=== PATIENT | male | born 1955 | race Caucasian/White ===

== ENCOUNTER 2017-08-01 08:46 | Inpatient (IN) | payer MEDICARE, MEDICAID ==
[2017-08-01] MEDS ORDERED: Haloperidol INJ IV/IM* 5 MG/ML AMP IV SLOW PU PRN (10:52)
[2017-08-01] MEDS ORDERED: Haloperidol INJ IV/IM* 5 MG/ML AMP ONE (11:02)
[2017-08-01] MEDS ORDERED: LORazepam INJ* 2 MG/ML 1 ML VIAL IV PUSH PRN (11:47)
[2017-08-01] MEDS ORDERED: LORazepam INJ* 2 MG/ML 1 ML VIAL ONE ×2 (11:54→15:18)
[2017-08-01] MEDS ORDERED: Vancomycin(*) 1,000 MG in NS 0.9% 250 ML* 250 ML IVPB ONE (12:00)
[2017-08-01] MEDS ORDERED: NS 0.9% 500 ML* 500 ML IV ONE (12:16)
[2017-08-01] MEDS ORDERED: Dextrose 50% Syringe 50 ML* 25 GM/50 ML SYRINGE IV PUSH PRN (12:28)
[2017-08-01 13:08] LABS: ABS Basophils 0 10^3/ul (0-0.2); ABS Eosinophils 0.1 10^3/ul (0-0.6); ABS Lymphocytes 0.4 10^3/ul (1.0-4.8); ABS Monocytes 0.8 10^3/ul (0-0.8); ABS Neutrophils 4.9 10^3/ul (1.5-7.7); ABS Nucleated RBC 0 10^3/ul; Eosinophil % 0.8 % (0-6); Hematocrit 28 % (42-52); Hemoglobin 9.3 g/dl (14.0-18.0); Lymphocyte % 6.2 % (25-47); Mean Corpuscular HGB Conc 34 g/dl (31-36); Mean Corpuscular Hemoglobin 29 pg (27-31); Mean Corpuscular Volume 85 fL (80-94); Mean Platelet Volume 8 um3 (7.4-10.4); Nucleated Red Blood Cells % 0; Platelet Count 100 10^3/ul (150-450); Red Blood Count 3.24 10^6/ul (4.0-5.4); Red Cell Distribution Width 16 % (10.5-15); White Blood Count 6.1 10^3/ul (3.5-10.8)
[2017-08-01 13:26] LABS: EGFR Non-African American 181.6 (>60)
[2017-08-01] MEDS ORDERED: Levofloxacin 750 MG IVPREMIX(* 750 MG/150 ML BAG IVPB SCH (13:30)
[2017-08-01] MEDS ORDERED: Olanzapine INJ(NF) 10 MG VIAL IM ONE (13:45)
[2017-08-01] MEDS ORDERED: Magnesium Sulfate 1 GM IV* 1 GM/100 ML BAG IV ONE (14:00)
[2017-08-01] MEDS: Heparin VIAL(*) 5000 UNITS/ML VIAL (FIVE THOUSAND) SUBCUT SCH (14:18)
[2017-08-01] MEDS: KCL 10 MEQ/50 ML IVPREMIX* 10 MEQ/50 ML BAG IV SCH ×2 (14:53→15:49)
--- NOTE | 2017-08-01 15:18 | RAD ---
HISTORY: Cough COMPARISONS: None VIEWS: 1: frontal portable view of the chest at 2:00 PM. The patient is obliqued to the right. FINDINGS: LINES AND TUBES: None. CARDIOMEDIASTINAL SILHOUETTE: There is mild widening of the upper mediastinum which may be an artifact of portable technique and obliquity. The cardiomediastinal silhouette is otherwise normal for portable technique. PLEURA: The costophrenic angles are sharp. No pleural abnormalities are noted. LUNG PARENCHYMA: The lung volumes are low. There is a diffuse reticular pattern with indistinct pulmonary vessels. ABDOMEN: The upper abdomen is clear. There is no subphrenic gas. BONES AND SOFT TISSUES: The patient is status post median sternotomy. IMPRESSION: PULMONARY INTERSTITIAL EDEMA
[2017-08-01] MEDS: LORazepam INJ* 2 MG/ML 1 ML VIAL IV PUSH PRN ×2 (15:20→18:06)
[2017-08-01] MEDS: Insulin LISPRO* 1 UNITS UNIT SUBCUT SCH (17:07)
--- NOTE | 2017-08-01 17:13 | HP ---
AMENDED REPORT NOW INCLUDES COSIGNER DESIGNATION - ESIGNED BEFORE ADJUSTMENT ADMISSION HISTORY AND PHYSICAL: DATE OF ADMISSION: 08/01/17 REFERRING FACILITY: [facility]. ATTENDING AND ADMITTING PHYSICIAN: Dr. Vinicius Wetzel.* (DICTATED BY FLETCHER STOVER, CINDY) CHIEF COMPLAINT: Altered mental status, possible sepsis, and right leg wound. HISTORY OF PRESENT ILLNESS: This is a gentleman who resides at the [facility]. Apparently, he was there in his usual state of health, convalescing from a right-sided stroke with some baseline right-sided weakness in his arm and leg. The patient had a sore that was being treated on the right foot. However, it was noted that over the course of the few days, he began exhibiting some symptoms of cellulitis in the foot spreading up to the mid calf. The patient was sent to the hospital for pain and the advancing likely infection and cellulitis. From what we can tell from the report, he was alert and oriented, but at baseline with dementia. Also, per the report, it appears that the patient does get combative at times and again this is his baseline. The patient was admitted to [place]. He was given x-rays and blood cultures and lactic acid were drawn. However, the patient began to decompensate and become very aggressive. Blood cultures and wound cultures from what we can see from the reports were growing out Pseudomonas aeruginosa, also Klebsiella pneumoniae and Enterococcus faecalis. Of significant note, the patient was being treated with Rocephin and per the ROSS report that was received from the other facility, all 3 bacteria were reported to be resistant to Rocephin. The patient began to become more combative at the other facility, also having some tachycardia. He was then called to be transferred to our ICU here for impending gram-positive sepsis, and right lower extremity cellulitis, and altered mental status. The patient is seen in the ICU bed 12. He is extremely combative. He has in bilateral upper extremity soft wrist restraints. He has been given 1 dose of haldol, 1 dose of Ativan, a dose of Zyprexa 5 mg, and is currently tachycardic on the monitor, yelling, kicking, screaming, and not responding to any questions or able to understand any of what is going on around him. Currently, we are trying to stabilize the patient's aggressive status. Plan is to do additional blood cultures, right now I have changed him to 1 g of vancomycin to start per the ROSS report that I found seems that all 3 bacteria are potentially susceptible to Levaquin, so we will start him on Levaquin 750 mg daily. Await new blood cultures and see if there is any change. We will adjust antibiotics based on any new culture results that we find. For now, we will check his response over the next 24 hours. If the patient continues to decompensate, we will also involve Infectious Disease and see if we can further elucidate what the issues are with his sepsis versus altered mental status. Also, hard to discover right now whether the patient's altered status is just advancing dementia or if this does have something to do with infection. I would like to get a CAT scan of his head when he is calm enough to be able to go through that. Also, a 12-lead EKG to assess his rhythm, he is currently tachycardic and it seems to be regular, but difficult to tell whether this is a sinus tach or some other underlying rhythm. Would like to also get a chest x-ray, he does appear to have some congestion, and also routine lab work and start him on insulin sliding scale. Med rec is soon to be completed by the pharmacist to initiate his regularly scheduled medications after we clarify routine medications he is supposed to be on. REVIEW OF SYSTEMS: Unable to obtain based on current status. PHYSICAL EXAMINATION GENERAL: Agitated and combative. VITAL SIGNS: Currently heart rate 126, rhythm unknown; respiratory rate 22; O2 saturation 96%; blood pressure 157/119, although the patient is pulling at the blood pressure cuff, I doubt the diastolic is actually a true reading at this point. HEENT: The patient appears to be PERRLA with nonicteric sclerae. NECK: Supple. No JVD apparent. Cannot auscultate a carotid bruit. The patient is moving too much to assess. LUNGS: Appeared to be clear at the apices, I am not able to listen at the bases , because the patient is on restraints at this time and too combative for me to listen to his lungs, he does have a course, loose cough. CARDIOVASCULAR: S1, S2 are present. Tachycardic on the monitor, again difficult to hear if there is a murmur at this time because the patient is yelling so much, so we will reassess again later. ABDOMEN: Belly is soft, does not appear to be tender. : He has a Edmonds catheter, draining clear yellow urine. MUSCULOSKELETAL: Appears to have gross motor function intact on the left side, right side is weaker but he is still able to move his extremities on that side enough to pull at his lines and tele. Sensory also appears to be intact. He is very sensitive to any touch or tactile stimulation. He has weak pulses on the bilateral lower extremities. The right lower extremity has some diffuse erythema approximately half way up the anterior portion of the mg and partly up to the calf. The wound itself is in the lateral portion at the midfoot over the slightly bony prominence, appears to be about 2 cm, round. No exudate noted , some eschar in the middle, does not appear to be deep. I cannot get measurement on the depths of the wound, but does appear to look like a pressure ulcer given the bony nature of that side of the foot, also this is on his weaker side. It appears that the foot is probably in the bed kind of outwardly rotated on the right side, which would contribute to him getting a pressure wound on that side. Also, both bony prominences of elbows are very reddened. Per the nurse also has what appears to be a sacral wound. There is a Mepilex over the sacrum, although we were not able to visualize that. PSYCHIATRIC: Again, the patient is very agitated and has dementia at baseline. DIAGNOSTIC STUDIES/LAB DATA: Laboratories from the receiving facility dated , WBC 9.81, RBC 3.46, hemoglobin 9.6, hematocrit 29.8, MCV 86.1, MCH 27.7 , RDW 16.1, platelets 130, does not appear to be any bandemia. Dated 08/01/17, sodium is 142, potassium 4.7, chloride 108, CO2 20, anion gap of 18.7, BUN 8, creatinine 0.6, GFR 146, random glucose is 129, calcium 8.5, ammonia level apparently was drawn but was pending. We do not have that result. Urinalysis dated 07/28/17 showed yellow, clear urine, pH of 6.0, specific gravity of 1.019 , protein negative, 3+ glucose, negative for ketones, blood, nitrites, or bilirubin, urine leukocyte esterase is negative. Imaging: There are few views of the right ankle that is dated 07/28/17. There is right ankle soft tissue swelling with no definite evidence of acute osteomyelitis. Also, states there is no cortical irregularity, erosion, or abnormal lucency seen to suggest the presence of osteomyelitis. There is no radiographic evidence of acute fracture or dislocation. No focal blastic or lytic areas are seen. There is swelling of the soft tissues around the right ankle. IMPRESSION: This is the very unfortunate 62-year-old gentleman with history of stroke in the past and right-sided deficit, who appears to be currently experiencing some increased altered mental status, fever and sepsis secondary to right lower extremity cellulitis nonhealing foot wound. PLAN: As above, he has been admitted to the ICU. My plan is to stabilize him here in the ICU, get a gauge on what his issues are after further imaging and if we can stabilize him to downgrade to one of the floors. I would like to get further imaging of the foot, perhaps if we can do bone scan or MRI of the foot to assess for osteomyelitis. He did come in with a temperature of 100.4, so blood cultures will be redrawn and start with vancomycin x 1 dose and Levaquin 750mg daily for now. We will recheck his labs and lactic acid in the morning. REEVALUATION @1830 Patient has required escalating doses of zyprexa and ativan with little effect. EKG shows sinus tachycardia for no acute ST segment changes. Discussed with pharmacy, will start ativan drip and reassess response. Would still like to get CT of head to ensure no new pathology is present. Portable chest xray shows pulmonary congestion and sternotomy wires, he likely has underlying CAD, and likely some acute failure. Will check BNP. Will continue soft wrist restraints for now. Per RN at bedside, they reached out to patient's son and they are apparently estranged. This plan has been discussed with Dr. Vinicius Wetzel, who is in agreement with the POC. FLETCHER STOVER, CINDY [id number]/[facility] #: [id number] [facility]
[2017-08-01] MEDS ORDERED: LORazepam VIAL (for drip)* 100 MG in D5W 50 ML BAG* 50 ML IVPB SCH (18:00)
[2017-08-01] MEDS ORDERED: LORazepam PREMIX BAG 1MG/ML* 100 MG/100 ML BAG SCH (18:00)
[2017-08-01] MEDS ORDERED: LORazepam INJ* 2 MG/ML 1 ML VIAL IV PUSH ONE (18:06)
[2017-08-01] MEDS ORDERED: Furosemide IV* 10 MG/ML VIAL (40 MG) IV ONE (21:21)
[2017-08-01] MEDS ORDERED: Furosemide IV* 10 MG/ML VIAL (40 MG) ONE (21:55)
[2017-08-01] MEDS ORDERED: Morphine INJ* 2 MG/ML 1 ML CARPUJECT ONE (21:56)
[2017-08-01] MEDS: Morphine INJ* 2 MG/ML 1 ML CARPUJECT IV PRN (21:57)
[2017-08-02] MEDS: Heparin VIAL(*) 5000 UNITS/ML VIAL (FIVE THOUSAND) SUBCUT SCH ×2 (00:20→05:21)
[2017-08-02] MEDS: LORazepam INJ* 2 MG/ML 1 ML VIAL IV PUSH PRN ×3 (00:22→10:42)
[2017-08-02] MEDS: Morphine INJ* 2 MG/ML 1 ML CARPUJECT IV PRN ×3 (01:24→09:44)
[2017-08-02 06:17] LABS: ABS Basophils 0 10^3/ul (0-0.2); ABS Eosinophils 0.1 10^3/ul (0-0.6); ABS Lymphocytes 0.6 10^3/ul (1.0-4.8); ABS Monocytes 1.1 10^3/ul (0-0.8); ABS Neutrophils 4.9 10^3/ul (1.5-7.7); ABS Nucleated RBC 0 10^3/ul; Eosinophil % 2.2 % (0-6); Hematocrit 28 % (42-52); Hemoglobin 9.7 g/dl (14.0-18.0); Lymphocyte % 9.1 % (25-47); Mean Corpuscular HGB Conc 35 g/dl (31-36); Mean Corpuscular Hemoglobin 29 pg (27-31); Mean Corpuscular Volume 83 fL (80-94); Mean Platelet Volume 8 um3 (7.4-10.4); Nucleated Red Blood Cells % 0; Platelet Count 101 10^3/ul (150-450); Red Blood Count 3.39 10^6/ul (4.0-5.4); Red Cell Distribution Width 16 % (10.5-15); White Blood Count 6.7 10^3/ul (3.5-10.8)
[2017-08-02 06:30] LABS: EGFR Non-African American 181.6 (>60)
--- NOTE | 2017-08-02 08:23 | PN ---
Subjective Date of Service: 08/02/17 Interval History: Patient not able to make his needs known. Objective Active Medications: Dextrose (D50w Syringe 50 Ml*) 12.5 gm IV PUSH .FOR FS < 60 - SS PRN PRN Reason: FS < 60 Furosemide (Lasix Iv*) 20 mg IV DAILY ONE Stop: 08/02/17 09:01 Levofloxacin/Dextrose (Levaquin 750 Mg Ivpremix(*)) 750 mg in 150 mls @ 100 mls /hr IVPB Q24H KULDEEP Last Admin: 08/01/17 14:53 Dose: 100 mls/hr Lorazepam 100 mg/ Dextrose 100 mls @ 2 mls/hr IVPB Q24H KULDEEP; 2 MG/HR PRN Reason: Protocol Insulin Human Lispro (Humalog*) 0 units SUBCUT AC KULDEEP PRN Reason: Protocol Last Admin: 08/01/17 17:07 Dose: 1 unit Lorazepam (Ativan Inj*) 2 mg IV PUSH Q4H PRN PRN Reason: AGITATION Last Admin: 08/02/17 05:21 Dose: 2 mg Morphine Sulfate (Morphine Inj (Syringe)*) 2 mg IV Q4H PRN PRN Reason: PAIN - UNRELIEVED Last Admin: 08/02/17 05:21 Dose: 2 mg Olanzapine (Zyprexa Im (Nf)) 5 mg IM Q4HR PRN; Protocol PRN Reason: AGITATION Last Admin: 08/01/17 20:37 Dose: 5 mg Vital Signs - 8 hr 08/02/17 08/02/17 08/02/17 00:22 01:00 01:24 Temperature Pulse Rate 97 Respiratory 28 18 25 Rate Blood Pressure 121/73 (mmHg) O2 Sat by Pulse 100 Oximetry 08/02/17 08/02/17 08/02/17 02:00 03:00 04:00 Temperature 98.0 F Pulse Rate 102 93 99 Respiratory 22 17 18 Rate Blood Pressure 133/93 134/81 123/74 (mmHg) O2 Sat by Pulse 99 98 99 Oximetry 08/02/17 08/02/17 08/02/17 05:00 05:21 06:00 Temperature Pulse Rate 100 97 Respiratory 22 19 18 Rate Blood Pressure 131/78 140/87 (mmHg) O2 Sat by Pulse 96 100 Oximetry 08/02/17 08/02/17 07:00 07:01 Temperature Pulse Rate 87 84 Respiratory 16 15 Rate Blood Pressure 96/62 (mmHg) O2 Sat by Pulse 100 100 Oximetry Oxygen Devices in Use Now: Nasal Cannula Appearance: Eyes closed. Occ flexes his extremities. Semi- position. Eyes: No Scleral Icterus Neck: NL Appearance and Movements; NL JVP, No Thyroid Enlargement, Masses Respiratory: Symmetrical Chest Expansion and Respiratory Effort, Clear to Auscultation, Clear to Percussion Cardiovascular: NL Sounds; No Murmurs; No JVD, RRR, No Edema, - Extremities: No Edema, No Clubbing, Cyanosis, - Skin: No Nodules or Sclerosis, - - Callus R lateral foot. R Heel red, possible incipient breakdown of heel. L heel red, 1x1 cm shallow ulcer. R lower leg mildly red from ankle detention to knee Neurological: - - Unresponsive to voice or light touch. Increased tone all extremities. Result Diagrams: 08/02/17 06:00 08/02/17 06:00 Microbiology and Other Data: Microbiology 08/01/17 12:56 Nasal Screen MRSA (PCR)(ROSS) - Final Nasal Mrsa Not Detected Assess/Plan/Problems-Billing Assessment: - Patient Problems (1) Altered mental status Current Visit: Yes Status: Acute Code(s): R41.82 - ALTERED MENTAL STATUS, UNSPECIFIED SNOMED Code(s): 729725524 Comment: CT scan, EEG pending. Continue lorazepam infusion. Maintenance IV fluids with KCL. (2) Hypokalemia Current Visit: Yes Status: Acute Code(s): E87.6 - HYPOKALEMIA SNOMED Code( s): 07249069 Comment: Maintenance IV fluids with KCL. BMP 2. (3) Cellulitis Current Visit: Yes Status: Acute Code(s): L03.90 - CELLULITIS, UNSPECIFIED SNOMED Code(s): 010686515 Comment: Ceftriaxone ordered. Received 1 dose levofloxacin. (4) CVA (cerebral vascular accident) Current Visit: Yes Status: Acute Code(s): I63.9 - CEREBRAL INFARCTION, UNSPECIFIED SNOMED Code(s): 519324916 Comment: Old CVA with R hemiparesis. I spoke to his nurse at the [facility]. He was ambulatory and oriented as of 1 week ago, up to his admission to [facility] 07/21/17.
[2017-08-02] MEDS: Insulin LISPRO* 1 UNITS UNIT SUBCUT SCH ×3 (08:31→23:58)
[2017-08-02] MEDS ORDERED: cefTRIAXone(*) 1 GM in NS 0.9% 50 ML* 50 ML IVPB SCH (09:00)
[2017-08-02] MEDS ORDERED: D5W 1/2 NS KCl 20 Meq 1000 ML* 1,000 ML IV SCH (09:00)
[2017-08-02] MEDS ORDERED: Furosemide IV* 10 MG/ML 2 ML VIAL (20 MG) IV ONE (09:00)
[2017-08-02] MEDS ORDERED: fentaNYL* 50 MCG/ML 2 ML VIAL (100 MCG VIAL) IV SLOW PU ONE ×2 (11:28→12:30)
[2017-08-02] MEDS ORDERED: fentaNYL* 50 MCG/ML 2 ML VIAL (100 MCG VIAL) ONE (11:43)
[2017-08-02] MEDS ORDERED: Ziprasidone IM INJ* 20 MG/ML VIAL IM ONE (11:51)
[2017-08-02] MEDS ORDERED: Ziprasidone IM INJ* 20 MG/ML VIAL ONE (11:55)
[2017-08-02] MEDS ORDERED: Zosyn per Pharmacy* NOTE FOLLOW UP SCH (12:00)
[2017-08-02] MEDS ORDERED: NS 0.9% 1000 ML* 1,000 ML IV SCH (12:30)
[2017-08-02] MEDS ORDERED: Piperacillin/Tazobac ADVAN(*) 3.375 GM in NS 0.9% 100 ML* 100 ML IVPB ONE (12:30)
--- NOTE | 2017-08-02 12:36 | RAD ---
Indication: Confusion. CT of the brain was performed without IV contrast. No prior studies are available for comparison Ventricular structures are midline. No midline shift is noted. The extra-axial spaces are grossly unremarkable. Hypodensity in the left frontal lobe likely represents prior infarct. Motion artifact degrades images. Mastoid air cells are grossly unremarkable. Mucosal thickening and air-fluid level is noted in the sphenoid sinus. Mucosal thickening of the left maxillary sinus is noted. IMPRESSION: Probable old left frontal lobe infarct. No definite intracranial mass or hemorrhage is noted. Sphenoid sinusitis.
--- NOTE | 2017-08-02 12:52 | CONSULT ---
Consult Consult: CRITICAL CARE MEDICINE DATE: 08/02/17 TIME: 1200 REFERRING PROVIDER: Rashard REASON/CHIEF COMPLAINT: encephalopathy HISTORY OF PRESENT ILLNESS: 62 yo M sent yesetrday from [place] secondary to encephalopathy and concern for cellulitis and sepsis +/- osteo of R foot. Pt treated with abx and ultimately mobilizing fluid but remaining combative at times, not communicating, although flailing about at times and moaning. Per nursing astute investigative work, pt was know to take care of self and own affairs at his living facility and had become more altered this week. Concerns started for leg pain and decreased communication. sent to [facility] [place] REVIEW OF SYSTEMS: As per HPI. PAST MEDICAL HISTORY: As per HPI. Pt with known prior CVA with residual R hemiparesis - unclear if any residual aphasia. Vascolopath per records. Uncontrolled DM. Gerd. dementia MEDICATIONS: Reviewed per transfer records. ALLERGIES: None. SOCIAL HISTORY: Reviewed but unclear. no next of kin known FAMILY HISTORY: Noncontributory at present. PHYSICAL EXAM: Vital Signs: Reviewed. Hr tachy. bp stable. RR variable and signs of ez. Neurologic: moves to pain and localize with left arm; more contracted and hemiparesis on right. Pupils eq and reactive. not tracking. not following commands. +gag, cough. HEENT: poor dentition, mm dry. Cardiovascular: distant, tachy, S1, S2 Respiratory: dec bs with barrel chest and mild RUL rhonchi; no wheeze. Abdomen: obese, soft, nt Extremities: chronic changes; mild cellulitic changes right leg with skin breakdown. Access: piv LABS: Reviewed. IMAGING: Reviewed. Previous MRI last year r/o osteo. CXR with dec volumes and mild interstial vol. CT head pending MEDICATIONS: Reviewed. ASSESSMENT/PLAN: 62 M Encephalopathy: multifactorial - metabolic, ?septic, check hepatic - ammonia ( on rifaximin previously?); CT pending. doubt seizure but eeg already done. ? delirium vs dementia components, especially with pain exacerbation - tx pain. Concern for benzos and delirium high with him and try to dec use - trial precedex for delirium Tx for cellulitis - nontoxic if infection present. polymicrobial wound swab and contaminant bc; can adjust to zosyn until better sorted to not miss on the cultured microbes. 3 phase bone scan perhaps later or mri as needed. afeb. wbc benign. Time and close ICU observation Will follow along Supportive and preventative care as ordered. Disposition: ICU Code Status: Full Critical Care Time: 40min Meri Paez DO
[2017-08-02] MEDS ORDERED: Potassium Phosphate IV* 30 MMOLE in NS 0.9% 250 ML* 250 ML IVPB ONE (13:00)
[2017-08-02] MEDS ORDERED: Magnesium Sulf 4 GM/100 ML IV* 4,000 MG/100 ML BAG IVPB ONE (13:00)
[2017-08-02] MEDS: Dexmedetomidine* 200 MCG in NS 0.9% 50 ML* 48 ML IVPB SCH ×3 (13:17→23:58)
[2017-08-02] MEDS: Albuterol/Ipratropium NEB.SOL* Albuterol 2.5 MG/Ipratropium 0.5 MG 3 ML INH SCH ×2 (17:12→20:34)
[2017-08-02] MEDS ORDERED: LORazepam VIAL (for drip)* 100 MG in D5W 50 ML BAG* 50 ML IVPB SCH (18:00)
[2017-08-02] MEDS: Piperacillin/Tazobactam 13.5 GM IV 24 hour continuous infusion IVPB SCH ×2 (18:26)
[2017-08-02] MEDS: fentaNYL* 50 MCG/ML 2 ML VIAL (100 MCG VIAL) IV SLOW PU PRN (21:55)
[2017-08-02] MEDS: Ziprasidone IM INJ* 20 MG/ML VIAL IM PRN (23:35)
--- NOTE | 2017-08-02 23:47 | EEG ---
ELECTROENCEPHALOGRAPHY: DATE OF STUDY: 08/02/17 - ROOM #ICU-05 LOCATION: The patient is an inpatient. ORDERING PHYSICIAN: Dr. Wetzel. CLINICAL PROBLEM: This is a 62-year-old man, who came to the ICU from [facility] for treatment of gram-positive sepsis. He has a history of dementia, but at his baseline, was ambulatory and mostly independent at his assisted living facility. He also has a past history of left-sided stroke with right- sided weakness. He is reportedly on lorazepam and morphine drips. MEDICATIONS: 1. Levofloxacin. 2. Heparin. 3. Olanzapine. 4. Lorazepam. 5. Morphine. 6. Furosemide. 7. Ceftriaxone. 8. Humalog. According to the technologist, the patient last received lorazepam at 5:21 in the morning. REPORT: The background lacks the organization expected of the typical waking or sleep background. There were no evident anterior to posterior voltage nor frequency gradients. There was no posterior dominant rhythm. The background consisted of mixed frequency, low to moderate voltage, polymorphic slowing in the theta and delta ranges. There was superimposed spindle like activity primarily in the frontocentral regions, consistent with medication effect and a sedated pattern. There were no clear focal asymmetries. The patient moved frequently during the study and there was some increase in faster frequency activity evident during these times of arousal. Throughout the recording, there are no epileptiform discharges or clear interhemispheric asymmetries. CLINICAL IMPRESSION: This is an abnormal EEG due to the presence of diffuse background slowing, lack of organization and no evident posterior dominant rhythm with superimposed spindle like activity in the frontocentral regions. These findings are suggestive of a moderate, nonspecific, diffuse encephalopathy. This encephalopathy is likely in part secondary to medications including benzodiazepines recently administered. There are no epileptiform abnormalities or clear focal asymmetries. [id number]/[facility] #: [id number] [facility]
[2017-08-03] MEDS: LORazepam INJ* 2 MG/ML 1 ML VIAL IV PUSH PRN (01:11)
[2017-08-03] MEDS: Albuterol/Ipratropium NEB.SOL* Albuterol 2.5 MG/Ipratropium 0.5 MG 3 ML INH SCH ×4 (01:19→19:38)
[2017-08-03] MEDS: fentaNYL* 50 MCG/ML 2 ML VIAL (100 MCG VIAL) IV SLOW PU PRN ×3 (02:38→16:07)
[2017-08-03] MEDS: Dexmedetomidine* 200 MCG in NS 0.9% 50 ML* 48 ML IVPB SCH ×3 (04:23→14:43)
[2017-08-03] MEDS: Insulin LISPRO* 1 UNITS UNIT SUBCUT SCH ×5 (05:14→23:48)
[2017-08-03 05:16] LABS: ABS Basophils 0 10^3/ul (0-0.2); ABS Eosinophils 0.2 10^3/ul (0-0.6); ABS Lymphocytes 0.5 10^3/ul (1.0-4.8); ABS Monocytes 0.6 10^3/ul (0-0.8); ABS Neutrophils 4.5 10^3/ul (1.5-7.7); ABS Nucleated RBC 0 10^3/ul; Hematocrit 30 % (42-52); Hemoglobin 10.5 g/dl (14.0-18.0); Lymphocyte % 9.1 % (25-47); Mean Corpuscular HGB Conc 35 g/dl (31-36); Mean Corpuscular Hemoglobin 29 pg (27-31); Mean Corpuscular Volume 84 fL (80-94); Mean Platelet Volume 8 um3 (7.4-10.4); Nucleated Red Blood Cells % 0.1; Platelet Count 102 10^3/ul (150-450); Red Blood Count 3.58 10^6/ul (4.0-5.4); Red Cell Distribution Width 17 % (10.5-15); White Blood Count 5.9 10^3/ul (3.5-10.8)
[2017-08-03 05:27] LABS: EGFR Non-African American 145.3 (>60)
[2017-08-03] MEDS ORDERED: fentaNYL* 50 MCG/ML 2 ML VIAL (100 MCG VIAL) ONE (11:02)
[2017-08-03] MEDS ORDERED: Propofol* 10 MG/ML 20 ML BTL IV PUSH ONE ×2 (11:03→11:22)
[2017-08-03] MEDS ORDERED: Propofol* 100 ML ONE (11:03)
[2017-08-03] MEDS ORDERED: fentaNYL* 50 MCG/ML 2 ML VIAL (100 MCG VIAL) IV SLOW PU ONE ×2 (11:21→16:45)
[2017-08-03] MEDS ORDERED: fentaNYL* 50 MCG/ML 5 ML VIAL (250 MCG VIAL) ONE (11:25)
--- NOTE | 2017-08-03 11:38 | PN ---
Progress Note - Progress Note Date of Service: 08/03/17 Note: CRITICAL CARE MEDICINE PROCEDURE NOTE DATE: 08/03/2017 TIME: 1130 SERVICE: Critical Care Medicine LOCATION OF PROCEDURE: ICU PROCEDURE: Endotracheal intubation PROCEDURALIST: Dr. Paez Consent obtain: No, procedure performed emergently Time out held: Not indicated INDICATION: Acute respiratory failure due to airway compromise secondary to ongoing encephalopathy. PROCEDURE: Oxygenation maintained and vitals monitored. Patient in supine position. Pre-medication with fentanyl 200mcg / propofol 100mg. Glidescope #3 inserted with Grade 1 view obtained. 8.0 endotracheal tube inserted to 24cm lip. Good chest rise with breath sounds appreciated in bilaterally lung lomeli. EtCO2 + color change. OGTY inserted to 55cm. Portable chest x-ray pending. Patient otherwise tolerated well. Meri Paez DO
--- NOTE | 2017-08-03 11:55 | PN ---
Progress Note - Progress Note Date of Service: 08/03/17 Note: CRITICAL CARE MEDICINE DATE: 08/03/17 TIME: 1100 SUBJECTIVE: Patient seen and examined. PHYSICAL EXAM: Vital Signs: Reviewed. Hr better. bp stable. RR variable and signs of ez. Neurologic: moves to pain and localize with left arm; more contracted and hemiparesis on right. Pupils eq and reactive, looking with downward gaze this am. not tracking. not following commands. moans. moves spont. +gag, cough. otherwise relatively unchanged from yesterday. HEENT: poor dentition, mm dry. Cardiovascular: distant, S1, S2; no m appreciated Respiratory: dec bs with barrel chest and mild RUL rhonchi and still with upper airway secretions Abdomen: obese, soft, nt Extremities: chronic changes; mild cellulitic changes right leg with skin breakdown same. Access: piv LABS: Reviewed. IMAGING: Reviewed. Previous MRI last year r/o osteo. CXR with dec volumes and mild interstial vol. CT head pending MEDICATIONS: Reviewed. ASSESSMENT: 62 M Encephalopathy: multifactorial - metabolic, ?septic, mild hepatic ?delirium vs dementia components but not correcting with time and precedex Cellulitis PLAN: Neurologic: not improving and apparently functional at baseline. encephalopathy ddx still concerning. Although afeb, benign wbc since admission, condition warrants LP today. Given his dyanmics best to secure airway; obtain LP and obtain MRI as well. Cardiovascular: perfusing and vol status ok, but given his h/o, cabg and concerns eval with tte today. Respiratory: airway is becoming concerning without improved mentation and therefore intubation today. Gastrointestinal: place ogt. start tf. start lactulose. Renal/Metabolic: lytes ok and f/u repletes. Infectious Disease: on zosyn to cover polymicrobes. CRP not too exciting and procalcitonin negative. LP today and f/u abx needs Hematology: Hb, plt seem to be towards his baseline. Endocrine: ssi. f/u bg needs. no steroid indications. Musculoskeletal: legs wrapped. avoid skin breakdown and deconditioning Psych/Social: no proxy and pt without capacity at present Supportive and preventative care as ordered. SUP: ppi VTE prophylaxis: heparin Edmonds catheter given critical illness, monitoring needs for accurate assessment of JHON and KDIGO criteria for critically ill patients and to avoid potential harms of urinary retention, skin breakdown/ulcers. Restraints: Reviewed and required. Disposition: ICU Code Status: Full Critical Care Time: 35min, excluding procedures Meri Paez DO
[2017-08-03] MEDS ORDERED: Magnesium Sulfate 2 GM IV* 2 GM/50 ML BAG IVPB ONE (12:03)
[2017-08-03] MEDS: Chlorhexidine MOUTHWASH 0.12%* 15 ML UDC TOPICAL SCH ×4 (13:11→23:48)
--- NOTE | 2017-08-03 13:17 | RAD ---
INDICATION: Status post intubation orogastric tube placement. COMPARISON: Comparison is made with prior chest x-ray study from August 01, 2017. TECHNIQUE: A portable view of the chest was obtained. FINDINGS: The patient is status post intubation. There is a orogastric tube which demonstrates normal course. The distal catheter projects over the left upper quadrant. The patient is status post sternotomy. The heart is within normal limits in size. There is elevation of the right hemidiaphragm and small bibasilar infiltrates. IMPRESSION: 1. STATUS POST INTUBATION AND OROGASTRIC TUBE PLACEMENT. 2. SMALL BIBASILAR INFILTRATES.
[2017-08-03] MEDS ORDERED: NS 0.9% 1000 ML* 1,000 ML IV ONE (13:33)
--- NOTE | 2017-08-03 14:31 | PN ---
Progress Note - Progress Note Date of Service: 08/03/17 Note: CRITICAL CARE MEDICINE PROCEDURE NOTE DATE OF PROCEDURE: 08/03/17 1330 SERVICE: Critical Care Medicine LOCATION OF PROCEDURE: ICU PROCEDURE: Lumbar Puncture PROCEDURALIST: Dr. Paez Consent obtain: No, procedure performed urgently and no consentable kin. Time out held: Yes INDICATION: Encephalopathy PROCEDURE: Oxygenation maintained and vitals monitored. Patient in right lateral decubitus position Site and side marked with initials and date. Pre-medication with sedation on vent not for procedure. Chlorhexidine prep x 3 at site and sterile drape, gown, and gloves utilized. Total 5ml 1% lidocaine utilized locally at L3-4 spianl interspace. Required 2 puncture sites with manipulation past bone. Clear tap from there with low flow. 4 tubes filled slowly with about 2-3ml each. Fluid clear throughout. Site covered with band aid. Specimens were sent to lab. Patient otherwise tolerated well. Meri Paez DO
[2017-08-03] MEDS: Ziprasidone IM INJ* 20 MG/ML VIAL IM PRN (15:09)
--- NOTE | 2017-08-03 15:32 | CONS ---
NEUROLOGY CONSULTATION: DATE OF CONSULT: 08/03/17 LOCATION: He is in the ICU bed 5. REFERRING PHYSICIAN: Dr. Paez. CHIEF COMPLAINT: Delirium. HISTORY OF PRESENT ILLNESS: Shawn Petit is a 62-year-old male transferred from [facility] on 08/01/17 because of agitated delirium. According to admission records, he had cellulitis of his foot, which was coming up his leg and he was admitted for pain and apparently advancing infection. He apparently had blood cultures, which were negative and wound cultures, which grew out multiple organisms including pseudomonas, klebsiella, and enterococcus. He was treated with Rocephin initially, but MICs came back indicating all the agents were resistant to Rocephin. He became more combative and delirious and tachycardic and it was elected to transfer him to our intensive care unit. Upon arrival, he was in agitated delirium and described as extremely combative. In addition, being tachycardic, he was described as yelling, kicking, and screaming. He was given vancomycin based on ROSS reports of sensitivities, haloperidol, lorazepam, and ultimately transitioned to Precedex infusion. His agitation has been controlled on the current regimen of Precedex. He has also been getting p.r.n. ziprasidone 10 mg t.i.d. p.r.n. and lorazepam 2 mg q.4 hours p.r.n. agitation. PAST MEDICAL HISTORY: Notable for left hemispheric stroke. Etiology and timing of that history was not known as I do not have any old records available. His ICU nurse called and spoke with the folks at his assisted living and confirmed that he is able to take care of his activity of daily living, walks, and he is usually cooperative other than sometimes yelling out. He apparently was able to handle financial affairs with assistance. Transfer records indicated a pre-existing diagnosis of dementia, but the verbal history obtained by his nurse brings that into question. He is apparently diabetic based on his laboratory studies done here. Transfer records indicated also diagnosis of gastroesophageal reflux. MEDICATIONS: List of home medications, which I do not have independent verification of includes: 1. Januvia. 2. Rifaximin. 3. Insulin. 4. Oxybutynin. 5. Meloxicam. 6. Loperamide. 7. Dexilant. 8. Isosorbide. 9. Plavix. 10. Lisinopril. 11. Atorvastatin. His current medications consist of: 1. Dexmedetomidine infusion. 2. Fentanyl 50 mcg IV q.4 hours p.r.n. pain. 3. Sliding scale insulin. 4. Lorazepam 2 mg IV q.2 hours p.r.n. agitation. 5. Zosyn. 6. Geodon 10 mg IM t.i.d. p.r.n. agitation. ROS: unobtainable from the patient and records are meager PHYSICAL EXAM: He has been afebrile with most recent temperature 97.6, temporal scan; heart rate running in the 80s; blood pressure 130/70 most recently. Respiratory rate fluctuates at times having very brief periods of apnea and other times respiratory is in the mid to low 20s. Oxygen saturations in excess of 95% on supplemental oxygen. His mouth is dry. Skin is warm. He has bandages on both of his feet and ankles. There are some excoriations on his forelegs. Heart is in regular rhythm and I do not hear any murmurs. I do not hear any cervical bruits either. Neck is stiff. There is no Kernig or Brudzinski sign. Neurologically, pupils react from about 3 to 2 mm. Fundi are poorly seen, but I did get brief look at his discs and parts of the retina, I did not see any hemorrhages or edema. Facial muscular looks symmetric. Corneal reflexes are brisker on the left than the right. Nasal tickle response is weak but present on the left but not the right. He moans periodically. He has contractures of the right upper extremity and the right ankle. There is spasticity in the right arm and leg. He moves the left arm purposely reaching up to his mouth and face. He restlessly moves the left leg. He has a left Babinski sign. Reflexes are brisk on the left side. There is no myoclonus noted. He does not respond to voice or speak other than to moan. 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 There is movement artifact. Chest x-ray was read as pulmonary edema. Other laboratory data includes a CBC notable for a hemoglobin of 10.5 and platelet count of 102,000, and is otherwise unremarkable. He has not had elevated white blood cells or left shift during the labs that he had here at the hospital. Chemistries are notable for a normal BUN and creatinine and normal electrolytes. Glucose is elevated at 155 and hemoglobin A1c is 8%. Lactic acid when he came in was normal at 1.2. Calcium is a bit low at 7.9, but albumin is 2.4, phosphorus low at 1.4, and magnesium low at 1.4 as well. AST is borderline elevated at 43, it was 62 yesterday. ALT has been normal. Ammonia was elevated on 07/31/17 at 60 and is down to 50 on 08/02/17. Back in April of 2017, ammonia was 68. BNP is elevated at 1942 and creatine kinase elevated at 430. CRP elevated at 54.8. IMPRESSION AND PLAN: Impression is that of agitated delirium of unknown cause. Differential diagnosis includes metabolic encephalopathy secondary to sepsis, meningitis, endocarditis. He had mild hyperammonemia when he came in and was on rifaximin at home indicating this is a chronic problem. There are signs of congestive heart failure on chest x- ray and by BNP. Medications that he has received that I am aware of would not be expected to cause an agitated delirium. There is no known toxin exposures. I recommend getting a urine tox screen, a pro time in anticipation of doing a lumbar puncture, and an echocardiogram to look for evidence of endocarditis. He may need an MRI at some point to look for cerebral abscess or for etiologies not determined. He has been covered with antibiotics for organisms which have been identified based on sensitivities. Also, he has hyperammonemia of unknown etiology, which apparently goes back a year or so. He was on rifaximin apparently at home, so this appears to be a chronic issue. Currently, his ammonia is at a good level and so I think we need to just continue to follow that. I will follow him along with you. [id number]/[facility] #: [id number] [facility]ERY[facility]
[2017-08-03 16:13] LABS: INR 1.34 (0.77-1.02)
--- NOTE | 2017-08-03 16:54 | ECHO ---
Patient: FELICIANO REYES [facility] Rec#: [id number] : 1955 Date: 08/03/2017 Age: 62y Height: 162.6 cm / 64.0 in Weight: 74.8 kg / 164.9 lbs Sex: M BSA: 1.8 Room#: ICU 5 Admit Date#: 08/01/2017 Type: Inpatient Referring: Gerald Paez Reading: Debby Clarke MD Sawyer Cork Slabs: Yuni Zeng RN RDCS CC: Bryan Freedman MD Transthoracic Echocardiogram Indication: CAD, CABG, altered mental status BP: 93/57 HR: 68 Rhythm: NSR Findings History: CAD, CABG, CVA with right hemiparesis, DM, HTN, GERD Technical Comments: The study quality is fair. The study is technically limited due to patient being intubated and on a ventilator.Completed at 1550. Left Ventricle: The left ventricular chamber size is normal. Mild to moderate concentric left ventricular hypertrophy is observed. There is increased basal septal hypertrophy noted without evidence of an increased gradient across the left ventricular outflow tract. Global left ventricular wall motion and contractility are within normal limits. Left ventricular systolic function is at the lower limits of normal. The estimated ejection fraction is 50-55%. Post surgical hypokinesis of the interventricular septum is observed consistent with coronary artery bypass. The assessment of diastolic function is non-diagnostic. The patient was unable to perform a Valsalva maneuver. Left Atrium: The left atrium is slightly dilated. Right Ventricle: The right ventricular cavity size is normal. The right ventricular global systolic function is low normal. Right Atrium: The right atrial cavity size is normal. Aortic Valve: The aortic valve is trileaflet. The aortic valve leaflets are mildly thickened. There is no evidence of aortic regurgitation. There is no evidence of aortic stenosis. Mitral Valve: The mitral valve leaflets are mildly thickened. There is mild mitral regurgitation. There is no evidence of mitral stenosis. Tricuspid Valve: There is mild tricuspid regurgitation. No pulmonary hypertension is noted. There is no tricuspid stenosis. Pulmonic Valve: The pulmonic valve appears normal. There is a trace pulmonic regurgitation. There is no pulmonic stenosis. Pericardium: There is no significant pericardial effusion. A pericardial fat pad is visualized. Aorta: There is no dilatation of the ascending aorta. There is no dilatation of the aortic arch. There is no dilation of the aortic root. Pulmonary Artery: The main pulmonary artery appears normal. Venous: Unable to accurately comment on the size collapsibility of the IVC as the patient in known to be on mechanical ventilation. Summary: There was not any prior study for comparison. Conclusions The left ventricular chamber size is normal. Mild to moderate concentric left ventricular hypertrophy is observed. There is increased basal septal hypertrophy noted without evidence of an increased gradient across the left ventricular outflow tract. Global left ventricular wall motion and contractility are within normal limits. The estimated ejection fraction is 50-55%. Post surgical hypokinesis of the interventricular septum is observed consistent with coronary artery bypass. The left atrium is slightly dilated. There is mild tricuspid regurgitation. There is mild mitral regurgitation. There is mild tricuspid regurgitation. There is a trace pulmonic regurgitation. The right ventricular global systolic function is low normal. Measurements Name Value Normal Range RVDdMajor (2D) 3.5 cm (2.2 - 4.4) RAd ISD 4CH 4.6 cm (3.4 - 4.9) RA (A4C)W 2.8 cm (2.9 - 4.6) IVSd (2D) 1.5 cm (0.6 - 1) LVPWd (2D) 1.2 cm (0.6 - 1) LVIDd (2D) 3.9 cm (3.6 - 5.4) LVIDs (2D) 2.9 cm - LV FS (2D) 24 % (25 - 45) Aortic Annulus 2.1 cm (1.4 - 2.6) Ao root diameter (2D) 3.4 cm (2.1 - 3.5) Ascending Ao 3.4 cm (2.1 - 3.4) Aortic arch 2.8 cm (1.8 - 3.4) LA dimension (AP) 2D 4.1 cm (2.3 - 3.8) LAd ISD 4CH 4.3 cm (2.9 - 5.3) LA ISD 4CH W 4.5 cm (2.5 - 4.5) Name Value Normal Range LA ESV SP 4CH (A/L) 67 ml - LA ESV SP 2CH (A/L) 33 ml - LA ESV BP (A/L) 47 ml - LA ESV BP (A/L) index 26.4 ml/m2 - LA ESV SP 4CH (MOD) 64 ml - LA ESV SP 2CH (MOD) 33 ml - Name Value Normal Range MV E-wave Vmax 0.85 m/sec - MV deceleration time 224 msec - MV A-wave Vmax 0.55 m/sec - MV E:A ratio 1.6 ratio - LV septal e' Vmax 0.07 m/sec - LV lateral e' Vmax 0.06 m/sec - LV E:e' septal ratio 12.1 ratio - LV E:e' lateral ratio 14.2 ratio - Name Value Normal Range AV Vmax 1.1 m/sec - AV VTI 23.9 cm - AV peak gradient 4.7 mmHg - AV mean gradient 2.7 mmHg - LVOT Vmax 0.83 m/sec - LVOT VTI 18.5 cm - LVOT peak gradient 2.8 mmHg - LVOT mean gradient 1.6 mmHg - MAYURI Vmax 0.94 m/sec - Name Value Normal Range TR Vmax 2.5 m/sec - TR peak gradient 25 mmHg - RAP 8 mmHg - RVSP 33 mmHg - Name Value Normal Range PV Vmax 0.97 m/sec -
[2017-08-03] MEDS: Piperacillin/Tazobactam 13.5 GM IV 24 hour continuous infusion IVPB SCH ×2 (16:56)
--- NOTE | 2017-08-03 18:11 | RAD ---
INDICATION: Pre-MRI evaluate for foreign body metal clips. TECHNIQUE: 2 views of the skull were obtained. FINDINGS: No metallic foreign body or surgical clips are seen. The paranasal sinuses appear clear. IMPRESSION: NO METALLIC FOREIGN BODY OR SURGICAL CLIPS ARE SEEN.
--- NOTE | 2017-08-03 18:15 | RAD ---
INDICATION: Prescreening for MRI. COMPARISON: There are no prior studies available for comparison. TECHNIQUE: Frontal supine films of the abdomen were obtained. The very inferior aspect of the pelvis is cut off on the exam. FINDINGS: The small bowel and colon appear nondistended. There are metallic wires of unknown significance which project over the upper midabdomen. In addition there is an electronic device which projects over the lateral aspect of the cardiac shadow on the left side. IMPRESSION: 1. THERE ARE METALLIC LEADS WHICH PROJECT OVER THE UPPER MID ABDOMEN OF UNKNOWN SIGNIFICANCE. 2. THERE IS AN ELECTRONIC DEVICE WHICH PROJECTS OVER THE LATERAL ASPECT OF THE CARDIAC SHADOW ON THE LEFT SIDE. 3. THE INFERIOR PELVIS IS CUT OFF ON THE FILM.
[2017-08-03] MEDS: Propofol* 100 ML IV SCH (20:18)
[2017-08-03] MEDS: Heparin VIAL(*) 5000 UNITS/ML VIAL (FIVE THOUSAND) SUBCUT SCH (21:43)
[2017-08-04] MEDS: Propofol* 100 ML IV SCH ×4 (01:00→10:25)
[2017-08-04] MEDS: Albuterol/Ipratropium NEB.SOL* Albuterol 2.5 MG/Ipratropium 0.5 MG 3 ML INH SCH ×4 (01:14→19:38)
[2017-08-04] MEDS: fentaNYL* 50 MCG/ML 2 ML VIAL (100 MCG VIAL) IV SLOW PU PRN ×3 (02:56→18:05)
[2017-08-04] MEDS: Chlorhexidine MOUTHWASH 0.12%* 15 ML UDC TOPICAL SCH ×5 (03:51→21:15)
[2017-08-04 05:46] LABS: EGFR Non-African American 148.3 (>60)
[2017-08-04] MEDS: Heparin VIAL(*) 5000 UNITS/ML VIAL (FIVE THOUSAND) SUBCUT SCH ×3 (05:52→21:15)
[2017-08-04] MEDS: Insulin LISPRO* 1 UNITS UNIT SUBCUT SCH ×3 (05:52→18:06)
[2017-08-04] MEDS ORDERED: Potassium Chloride LIQUID* 20 MEQ PACKET NG TUBE ONE (09:00)
[2017-08-04] MEDS ORDERED: Thiamine IV* 100 MG/ML 2 ML VIAL IV ONE (11:04)
--- NOTE | 2017-08-04 11:19 | PN ---
Progress Note - Progress Note Date of Service: 08/04/17 Note: CRITICAL CARE MEDICINE DATE: 08/04/17 TIME: 1030 SUBJECTIVE: Patient seen and examined. PHYSICAL EXAM: Vital Signs: Reviewed. sympathetics better. Hr 70s. Neurologic: off propofol for about 5 min: pupils eq and reactive but not tracking. +gag/cough. localizes appropriately with left side and movement on right. Does not spont open eyes. Mild clonus at R leg. not following commands. HEENT: ett/ogt in place. Cardiovascular: distant, S1, S2; no m appreciated Respiratory: dec bs otherewise clear. Abdomen: obese, soft, nt Extremities: chronic changes; mild cellulitic changes right leg same. Access: piv LABS: Reviewed. IMAGING: Reviewed. MEDICATIONS: Reviewed. ASSESSMENT: 62 M Encephalopathy: multifactorial - metabolic, ?septic, mild hepatic Delirium ongoing RLE Cellulitis Cad- h/o cabg ?Dementia PLAN: Neurologic: about the same yet again. although sympathetics are better, he is still not communicating and remains in a mcs. utilizeing fent as he seems somewhat hypersensistive to pain. hopeully that could break delirium cycle. Unable to have mri due to metal ailment. Not focal other then old cva, but could consider CTA for what it could be worth, but if more small ischemic showers, or post circ ailment, hypoxic encephalopathy or other alternatives would be much better seen on MRI and are lower on ddx still to warrant ct yet, but may need all the same if no answers with time. May consider repeat EEG as well if no improvement, but no epileptiform aliments last time and now on prop sometimes too, placing seizure even lower. LP benign although cx pending. No empiric tx. He is not worse, just not improved. support with time. Cardiovascular: perfusing fine and vol status stable. echo ok; no indication for levy. Respiratory: airway concerncs sec to ms still ties him on vent currently. protection Gastrointestinal: continued tf. and lactulose. Renal/Metabolic: lytes ok. add thiamine for what its worth. Infectious Disease: on zosyn continued for now for cellulitis. Hematology: Hb, plt seem stable about his baseline. Endocrine: ssi. no steroid indications. tsh ok Musculoskeletal: legs wrapped. avoid skin breakdown and deconditioning Psych/Social: no proxy and pt without capacity at present Supportive and preventative care as ordered. SUP: h2 VTE prophylaxis: heparin Edmonds catheter given critical illness, monitoring needs for accurate assessment of JHON and KDIGO criteria for critically ill patients and to avoid potential harms of urinary retention, skin breakdown/ulcers. Restraints: Reviewed and required. Disposition: ICU Code Status: Full Critical Care Time: 35min Meri Paez DO
[2017-08-04] MEDS: Famotidine SUSP* 40 MG/5 ML ORAL.SYRIN G TUBE SCH (14:05)
[2017-08-04 16:52] LABS: CSF VDRL Negative (Negative)
[2017-08-04] MEDS: Piperacillin/Tazobactam 13.5 GM IV 24 hour continuous infusion IVPB SCH ×2 (18:06)
--- NOTE | 2017-08-04 20:29 | CONS ---
NEUROLOGY CONSULTATION FOLLOWUP: DATE OF FOLLOWUP: 08/04/17 LOCATION: He is ICU bed 5. CLOTH HAULER: Dr. Paez. CHIEF COMPLAINT: Unresponsiveness. INTERVAL HISTORY: Since yesterday, Mr. Petit was intubated and a spinal tap was performed. The spi nal fluid was essentially unremarkable. He was on propofol while intubated and that was discontinued about 2 hours ago. He is still intubated. There have not been any clinical seizures or other event s. MEDICATIONS: Reviewed and he is on: 1. Propofol, which is currently being held over the last 2 hours. 2. Geodon 10 mg IM t.i.d. p.r.n. agitation. 3. Lactulose 30 mL NG tube b.i.d. 4. Sliding scale insulin. 5. Famotidine 20 mg per G tube q. day. 6. Albuterol inhaler q.6 hours. 7. He is on subcutaneous heparin q.8 hours. PHYSICAL EXAM: He remains afebrile, last temperature 98.6 temporally. Blood pressure fluctuating mo st recently 115/64, heart rate in the 70s and seems regular, respiratory rate on the monitor 14 to 17 , oxygen saturation 100% on 30% FiO2. Heart is in a regular rhythm and I do not hear any murmurs. Pupils react equally to light from 4 down to about 2.5 mm. Funduscopic exam, the left eye looks norm al. I do not see any embolic phenomenon or papilledema. I cannot look at the right eye because of t he way the respirator and another equipment is obstructing access. He has a nasal tickle response to the left side, but not to the right. He has a weak corneal reflex on the left side, but not on the right. With sternal rub, he has fairly symmetrical facial grimace. Once stimulated, he moves his le ft leg restlessly and he tries to reach the endotracheal tube with his left hand, which is restrained . His right arm remains spastic with a clenched fist and the right leg is stiff and spastic and he d oes not move it spontaneously. He has bilateral Babinski signs. I cannot get him to visually fixate . He has not responded to visual threat. LABORATORY DATA: From today and yesterday also notable for a CBC yesterday with a stable hemoglobin 10.5, platelet count of 102,000, white blood cell normal at 5.9. His INR was elevated yesterday at 1. 34. Chemistries today notable for a glucose of 142, calcium 8.0 with an albumin of 2.4, AST is slightly e levated today at 54. Ammonia this morning is 47. Spinal fluid results from yesterday notable for 1 white blood cell and 0 red blood cells per microlit er. Glucose was 92 and spinal fluid protein 27. Microbiology notable for spinal fluid with a negative Gram stain and no growth after 1 day. IMPRESSION AND PLAN: Impression is that of agitated delirium, now intubated on propofol. He has a c hronic right spastic hemiparesis from an old left middle cerebral artery infarct. It is not clear wh at caused the agitated delirium and there is no evidence of central nervous system infection. He may have had cerebrovascular accident and particularly might have had cerebral emboli. He cannot have a n MRI because of the stent that he has is not being MRI compatible. I agree with Dr. Paez's plan of repeating head CT on Sunday and also repeat an EEG. He appears to have chronic hepatic insufficiency, but his ammonia is under control. I will continue to follow meg hale with you. [id number]/[facility] #: [id number]
[2017-08-05] MEDS: Insulin LISPRO* 1 UNITS UNIT SUBCUT SCH ×4 (00:05→18:00)
[2017-08-05] MEDS: Chlorhexidine MOUTHWASH 0.12%* 15 ML UDC TOPICAL SCH ×6 (00:05→20:02)
[2017-08-05] MEDS: fentaNYL* 50 MCG/ML 2 ML VIAL (100 MCG VIAL) IV SLOW PU PRN ×4 (00:05→12:55)
[2017-08-05] MEDS: Albuterol/Ipratropium NEB.SOL* Albuterol 2.5 MG/Ipratropium 0.5 MG 3 ML INH SCH ×4 (01:01→19:17)
[2017-08-05] MEDS: Ziprasidone IM INJ* 20 MG/ML VIAL IM PRN ×2 (01:13→09:12)
[2017-08-05 05:02] LABS: ABS Basophils 0 10^3/ul (0-0.2); ABS Eosinophils 0.1 10^3/ul (0-0.6); ABS Lymphocytes 0.7 10^3/ul (1.0-4.8); ABS Monocytes 0.8 10^3/ul (0-0.8); ABS Neutrophils 6.6 10^3/ul (1.5-7.7); ABS Nucleated RBC 0 10^3/ul; Hematocrit 31 % (42-52); Hemoglobin 10.6 g/dl (14.0-18.0); Lymphocyte % 8.3 % (25-47); Mean Corpuscular HGB Conc 34 g/dl (31-36); Mean Corpuscular Hemoglobin 28 pg (27-31); Mean Corpuscular Volume 83 fL (80-94); Mean Platelet Volume 8 um3 (7.4-10.4); Nucleated Red Blood Cells % 0.1; Platelet Count 103 10^3/ul (150-450); Red Blood Count 3.75 10^6/ul (4.0-5.4); Red Cell Distribution Width 17 % (10.5-15); White Blood Count 8.2 10^3/ul (3.5-10.8)
[2017-08-05 05:17] LABS: EGFR Non-African American 158.1 (>60)
[2017-08-05] MEDS: Heparin VIAL(*) 5000 UNITS/ML VIAL (FIVE THOUSAND) SUBCUT SCH ×3 (06:27→21:53)
[2017-08-05] MEDS: Famotidine SUSP* 40 MG/5 ML ORAL.SYRIN G TUBE SCH (07:53)
[2017-08-05] MEDS ORDERED: Propofol* 100 ML ONE (09:13)
[2017-08-05] MEDS ORDERED: Magnesium Sulf 4 GM/100 ML IV* 4,000 MG/100 ML BAG IVPB ONE (09:30)
[2017-08-05] MEDS ORDERED: Potassium Phosphate IV* 30 MMOLE in NS 0.9% 250 ML* 250 ML IVPB ONE (11:00)
[2017-08-05] MEDS: Potassium Chloride LIQUID* 20 MEQ PACKET NG TUBE SCH ×3 (11:19→21:00)
--- NOTE | 2017-08-05 11:38 | PN ---
Progress Note - Progress Note Date of Service: 08/05/17 Note: CRITICAL CARE MEDICINE DATE: 08/05/17 TIME: 1030 SUBJECTIVE: Patient seen and examined. PHYSICAL EXAM: Vital Signs: Reviewed. sympathetics up a touch and had been more alert and following commands for nursing. back sedated now. . Neurologic: sympathetics up a touch and had been more alert and following commands for nursing. back sedated now. pupils eq and reactive. response to pain HEENT: ett/ogt in place. Cardiovascular: distant, S1, S2; no m appreciated Respiratory: clear. Abdomen: obese, soft, nt Extremities: chronic changes; mild cellulitic changes right leg same. topical excoriations left anticubital Access: piv LABS: Reviewed. IMAGING: Reviewed. MEDICATIONS: Reviewed. ASSESSMENT: 62 M Encephalopathy: multifactorial - metabolic, hepatic Delirium ongoing but perhaps improved. RLE Cellulitis Cad- h/o cabg ?Dementia PLAN: Neurologic: better. obtian CT with sedation today to have better eval and assure no other ishemic insults perhaps in evolution. sedation for this. Holiday again post. give more time with metabolic and hepatic clearance and re- assess tomorrow towards chance of liberation if ms consistent Cardiovascular: perfusing. vol status ok. Respiratory: airway concerns and as above. apv Gastrointestinal: continued tf. lactulose. sup Renal/Metabolic: lytes needing replete. Infectious Disease: continued zosyn for cellulitis. Hematology: Hb, plt stable. Endocrine: ssi. add lantus. tsh ok Musculoskeletal: avoid skin breakdown and deconditioning Psych/Social: see if pt can begin to regain capacity Supportive and preventative care as ordered. SUP: h2 VTE prophylaxis: heparin Edmonds catheter given critical illness, monitoring needs for accurate assessment of JHON and KDIGO criteria for critically ill patients and to avoid potential harms of urinary retention, skin breakdown/ulcers. Restraints: Reviewed and required. Disposition: ICU Code Status: Full Critical Care Time: 35min Meri Paez DO
[2017-08-05] MEDS: Propofol* 100 ML IV SCH ×4 (11:57→22:53)
[2017-08-05] MEDS ORDERED: Insulin GLARGINE(*) 1 UNITS UNIT SUBCUT SCH (12:00)
--- NOTE | 2017-08-05 13:39 | RAD ---
INDICATION: Encephalopathy COMPARISON: CT of the brain dated August 02, 2017 TECHNIQUE: Contiguous axial sections of the brain were obtained from the skull base to the vertex without contrast. FINDINGS: Similar to the prior brain CT, evaluation is limited by motion artifact. The ventricles, cisterns and sulci are within normal limits. There is encephalomalacia involving the left frontal, posterior parietal and occipital lobes. The ortega-white matter differentiation of the right hemisphere appears to be intact. The cerebellum appears normal. There is no evidence for intracranial hemorrhage. No significant focal osseous abnormality is present. The visualized portion of the paranasal sinuses appear clear. The mastoid air cells are well aerated bilaterally. IMPRESSION: Evaluation of the brain is limited by patient motion artifact. There is left hemisphere encephalomalacia similar in appearance to the August 02, 2017 CT examination. There is no definite acute intracranial hemorrhage.
[2017-08-05] MEDS: Piperacillin/Tazobactam 13.5 GM IV 24 hour continuous infusion IVPB SCH ×2 (17:59)
[2017-08-06] MEDS: Insulin LISPRO* 1 UNITS UNIT SUBCUT SCH ×5 (00:46→23:58)
[2017-08-06] MEDS: Chlorhexidine MOUTHWASH 0.12%* 15 ML UDC TOPICAL SCH ×7 (00:46→23:58)
[2017-08-06] MEDS: Albuterol/Ipratropium NEB.SOL* Albuterol 2.5 MG/Ipratropium 0.5 MG 3 ML INH SCH ×4 (01:13→19:25)
[2017-08-06] MEDS: Propofol* 100 ML IV SCH ×3 (03:15→18:18)
[2017-08-06] MEDS: Heparin VIAL(*) 5000 UNITS/ML VIAL (FIVE THOUSAND) SUBCUT SCH ×3 (06:05→21:40)
[2017-08-06 06:40] LABS: EGFR Non-African American 120.6 (>60)
[2017-08-06] MEDS: Famotidine SUSP* 40 MG/5 ML ORAL.SYRIN G TUBE SCH (09:24)
[2017-08-06] MEDS ORDERED: Insulin GLARGINE(*) 1 UNITS UNIT SUBCUT SCH (10:00)
--- NOTE | 2017-08-06 12:35 | PN ---
Progress Note - Progress Note Date of Service: 08/06/17 Note: CRITICAL CARE MEDICINE DATE: 08/06/17 TIME: 925 SUBJECTIVE: Patient seen and examined. PHYSICAL EXAM: Vital Signs: Reviewed. Neurologic: still awakening for nursing with sedation vacation but back up again this am. HEENT: ett/ogt in place. Cardiovascular: distant, S1, S2; no m appreciated Respiratory: clear. Abdomen: obese, soft, nt Extremities: chronic changes; mild cellulitic changes right leg same. topical excoriations left anticubital in evolution Access: piv LABS: Reviewed. IMAGING: Reviewed. MEDICATIONS: Reviewed. ASSESSMENT: 62 M Encephalopathy: multifactorial - metabolic, hepatic Delirium ongoing but perhaps improved. RLE Cellulitis Cad- h/o cabg ?Dementia PLAN: Neurologic: better. sedation vacation again and if able to show signs of better airway protection, we will look to liberate. f/u delirum Cardiovascular: perfusing. vol status ok. Respiratory: airway concerns and as above . cpap - well. Gastrointestinal: continued tf. lactulose. sup Renal/Metabolic: lytes f/u and replete Infectious Disease: continued zosyn for cellulitis. Hematology: Hb, plt stable. Endocrine: ssi. adjustlantus. Musculoskeletal: avoid deconditioning Psych/Social: hopefully show improved capacity today Supportive and preventative care as ordered. SUP: h2 VTE prophylaxis: heparin Edmonds catheter given critical illness, monitoring needs for accurate assessment of JHON and KDIGO criteria for critically ill patients and to avoid potential harms of urinary retention, skin breakdown/ulcers. Restraints: Reviewed and required. Disposition: ICU Code Status: Full Critical Care Time: 35min FTomás Paez DO
[2017-08-06] MEDS: Piperacillin/Tazobactam 13.5 GM IV 24 hour continuous infusion IVPB SCH ×2 (16:29)
[2017-08-06] MEDS: fentaNYL* 50 MCG/ML 2 ML VIAL (100 MCG VIAL) IV SLOW PU PRN (16:49)
[2017-08-06] MEDS: Ziprasidone IM INJ* 20 MG/ML VIAL IM PRN (17:50)
[2017-08-07] MEDS: Albuterol/Ipratropium NEB.SOL* Albuterol 2.5 MG/Ipratropium 0.5 MG 3 ML INH SCH ×4 (00:51→19:37)
[2017-08-07] MEDS: Propofol* 100 ML IV SCH ×4 (01:01→21:45)
[2017-08-07] MEDS: Insulin LISPRO* 1 UNITS UNIT SUBCUT SCH ×4 (05:55→23:43)
[2017-08-07] MEDS: Heparin VIAL(*) 5000 UNITS/ML VIAL (FIVE THOUSAND) SUBCUT SCH ×3 (05:56→21:07)
[2017-08-07] MEDS: Chlorhexidine MOUTHWASH 0.12%* 15 ML UDC TOPICAL SCH ×6 (05:56→23:42)
[2017-08-07] MEDS: Famotidine SUSP* 40 MG/5 ML ORAL.SYRIN G TUBE SCH (08:09)
[2017-08-07] MEDS: Insulin GLARGINE(*) 1 UNITS UNIT SUBCUT SCH (09:39)
[2017-08-07] MEDS ORDERED: NS 0.9% 500 ML* 500 ML ONE (16:33)
[2017-08-07] MEDS: Piperacillin/Tazobactam 13.5 GM IV 24 hour continuous infusion IVPB SCH ×2 (17:15)
--- NOTE | 2017-08-07 18:50 | PN ---
Date of Service: 08/07/17 - [facility] progress note Critical Care Services: Pt seen and examined at bedside this afternoon. Overnight events noted Vital signs, medications, Labs were reviewed. Vital Signs: Temp Pulse Resp BP SpO2 FiO2 98 F 73 19 163/81 100 25 08/07/17 15:50 08/07/17 18:00 08/07/17 17:43 08/07/17 18:00 08/07/17 18:00 08/07 15:58 Physical Exam: Gen: Pt is sedated, was agitated when sedation vacation attempted HEENT:PERRLA, No JVD, ETT, OGT+ Lungs:Distant breath sounds, no wheeze Cardiac: S1, S2+, regular Abdomen:Soft, BS+ Extremities: chronic skin changes; mild cellulitic changes right, skin break down in heals, topical excoriations left anticubital in evolution, sacral skin erythema Neuro: Sedated, moves extremities to pain Fluid Balance (Past 24 Hours): I= 316 O= 425 Net -109 Intake & Output 08/05/17 08/06/17 08/07/17 08/08/17 06:59 06:59 06:59 06:59 Intake Total 1033 3729 2019 316 Output Total 1400 1150 875 425 Balance -367 2579 1144 -109 Weight 162 lb 7.691 oz 166 lb 10.711 oz 161 lb 2.526 oz Intake: IV Fluids 330 253 481 201 ABX - ZOSYN 330 253 481 201 IVPB 174 517 ABX - ZOSYN 174 164 Magnesium 104 Potassium Phosphate 249 Medicated IV 129 490 331 115 CC - Propofol/Diprivan 129 490 331 115 Oral 0 0 0 Tube Feeding 400 2219 1057 Tube Feeding Flush Amount 250 150 Output: Edmonds 1300 1150 875 425 Suctioning 100 Other: Date of Last Bowel 08/05/17 Movement # Bowel Movements 1 1 2 Estimated Stool Amount Medium Large Large Large Labs: Laboratory Results - last 24 hr 08/06/17 08/07/17 08/07/17 23:50 05:48 13:05 POC Glucose (mg/dL) 222 H 285 H 337 H 08/07/17 18:02 POC Glucose (mg/dL) 284 H Impression: 62 y o m with h/o CVA transferred from assisted living facility for agitation, possible sepsis from cellulitis and decub 1. Encephalopathy: multifactorial - metabolic versus septic versus hepatic 2. S/p intubation for airway protection 3. Delirium 4. RLE Cellulitis 5. CAD s/p CABG Plan: 1.Neurologic: Still requiring sedation given continued agitation, will attempt sedation vacation again in am and if able to show signs of better airway protection, will be able to liberate from mechanical ventilation. f/u delirum . Neurology consultation appreciated. No signs of seizure activity, CSF negative for infection/meningitis. CT brain didnot show acute changes 2. Cardiovascular: Hemodynamically stable, vol status stable 3.Respiratory: Resp mechanics are acceptable, minimal FiO2 requirements. C/w current vent settings 4.Gastrointestinal: continue tube feeds, lactulose. sup 5.Renal/Metabolic: Good UO, lytes f/u and replete as needed 6.Infectious Disease: Continue zosyn for cellulitis. 7. Hematology: Hb, plt stable. No leucocytosis 8.Endocrine: H/o DM, sugars around 300`s, Insulin SS, adjust lantus. 9.Musculoskeletal: Heel ulcers, cellulitis, frequent positioning, sacral decub precuations and care, wound care to f/u 10.Psych/Social: Noted to have signficant aggittion and delirium, on sedation while on vent Supportive and preventative care as ordered. VTE prophylaxis: heparin Edmonds catheter given critical illness, monitoring needs for accurate assessment of JHON for critically ill patients and to avoid potential harms of urinary retention, skin breakdown/ulcers. Restraints: Reviewed and required. Disposition: ICU Code Status: Full Critical Care Time: 35min
--- NOTE | 2017-08-07 23:33 | EEG ---
ELECTROENCEPHALOGRAPHY: DATE OF STUDY: 08/07/17 REFERRING PHYSICIAN: Dr. Paez. LOCATION: He is in the intensive care unit, bed 5. CLINICAL PROBLEM: Agitated delirium, on propofol. MEDICATIONS: Include: 1. Propofol. 2. Geodon. 3. Fentanyl. 4. Insulin. 5. Lactulose. 6. Piperacillin. 7. Humalog. 8. Heparin. REPORT: This 16-channel EEG is remarkable for background rhythms, which are symmetrical and fairly synchronous but somewhat discontinuous. Moderate voltage delta activity is interspersed with periods of mixed alpha and theta rhythms. There is no clear anterior to posterior gradient. Propofol was discontinued and slower rhythms gradually decreased in abundance. The patient opened his eyes to voice but does not follow commands. Posterior alpha rhythm appears at about 8 cycles per second which is fairly symmetric and lower voltage rhythms are seen bifrontally interspersed with bifrontal slowing. The patient does not exhibit sleep stages nor follow commands. There are no epileptiform discharges during the recording. Propofol was restarted at the end of the recording with increase in delta activity. CLINICAL IMPRESSION: Abnormal EEG due to generalized slowing of background rhythms consistent with anesthetic drug effect. There are no focal or epileptiform features to this recording. [id number]/[facility] #: [id number] [facility]
[2017-08-08] MEDS: Albuterol/Ipratropium NEB.SOL* Albuterol 2.5 MG/Ipratropium 0.5 MG 3 ML INH SCH ×3 (00:41→14:50)
[2017-08-08] MEDS: fentaNYL* 50 MCG/ML 2 ML VIAL (100 MCG VIAL) IV SLOW PU PRN ×4 (02:07→22:30)
[2017-08-08] MEDS: Propofol* 100 ML IV SCH (04:40)
[2017-08-08] MEDS: Chlorhexidine MOUTHWASH 0.12%* 15 ML UDC TOPICAL SCH ×6 (05:36→23:48)
[2017-08-08] MEDS: Insulin LISPRO* 1 UNITS UNIT SUBCUT SCH ×4 (05:56→23:49)
[2017-08-08] MEDS: Heparin VIAL(*) 5000 UNITS/ML VIAL (FIVE THOUSAND) SUBCUT SCH ×3 (05:56→20:58)
[2017-08-08 06:02] LABS: ABS Basophils 0 10^3/ul (0-0.2); ABS Eosinophils 0.2 10^3/ul (0-0.6); ABS Lymphocytes 0.8 10^3/ul (1.0-4.8); ABS Monocytes 0.8 10^3/ul (0-0.8); ABS Neutrophils 5.9 10^3/ul (1.5-7.7); ABS Nucleated RBC 0 10^3/ul; Eosinophil % 2.8 % (0-6); Hematocrit 29 % (42-52); Hemoglobin 9.9 g/dl (14.0-18.0); Lymphocyte % 10.9 % (25-47); Mean Corpuscular HGB Conc 34 g/dl (31-36); Mean Corpuscular Hemoglobin 29 pg (27-31); Mean Corpuscular Volume 84 fL (80-94); Mean Platelet Volume 9 um3 (7.4-10.4); Nucleated Red Blood Cells % 0.1; Platelet Count 116 10^3/ul (150-450); Red Blood Count 3.44 10^6/ul (4.0-5.4); Red Cell Distribution Width 18 % (10.5-15); White Blood Count 7.8 10^3/ul (3.5-10.8)
[2017-08-08 06:17] LABS: EGFR Non-African American 158.1 (>60)
[2017-08-08] MEDS: Famotidine SUSP* 40 MG/5 ML ORAL.SYRIN G TUBE SCH (07:56)
[2017-08-08] MEDS ORDERED: Albuterol/Ipratropium NEB.SOL* Albuterol 2.5 MG/Ipratropium 0.5 MG 3 ML INH PRN (08:18)
[2017-08-08] MEDS: Insulin GLARGINE(*) 1 UNITS UNIT SUBCUT SCH ×2 (10:28→16:19)
[2017-08-08] MEDS ORDERED: Albumin Human 25%* 25 GM/100 ML BTL IV ONE (12:00)
[2017-08-08] MEDS ORDERED: Potassium Phosphate IV* 5 MMOLE in NS 0.9% 250 ML* 250 ML IVPB ONE (12:00)
[2017-08-08] MEDS: Albumin Human 25%* 12.5 GM/50 ML BTL IV SCH ×2 (12:41→13:11)
--- NOTE | 2017-08-08 15:49 | PN ---
Date of Service: 08/08/17 - [facility] note Critical Care Services: Pt seen and examined at bedside. No acute events o/n. Sedation was held in anticipation of extubation. Pt more responsive however with periods of agitation Vital Signs: Temp Pulse Resp BP SpO2 FiO2 98.8 F 96 30 171/67 98 25 08/08/17 13:03 08/08/17 15:01 08/08/17 15:02 08/08/17 15:01 08/08/17 15:01 08/08 12:00 Physical Exam: Gen: Responding to verbal stimuli by opening eyes, not fully alert, agitated at times HEENT:PERRLA, No JVD, ETT, OGT+ Lungs:Distant breath sounds, no wheeze Cardiac: S1, S2+, regular Abdomen:Soft, BS+ Extremities: chronic skin changes; mild cellulitic changes right, skin break down in heals, topical excoriations left anticubital in evolution, sacral skin erythema, not worsening Neuro: Off sedation, periods of agitation Fluid Balance (Past 24 Hours): I= 778 O= 1650 Net -871 Intake & Output 08/06/17 08/07/17 08/08/17 08/09/17 06:59 06:59 06:59 06:59 Intake Total 3729 2019 1720 778.6 Output Total 7419 764 7180 1650 Balance 2579 1144 495 -871.4 Weight 166 lb 10.711 oz 161 lb 2.526 oz 166 lb 0.129 oz Intake: IV Fluids 253 481 514 246 ABX - ZOSYN 253 481 514 166 Albumin 80 IVPB 517 40 ABX - ZOSYN 164 Magnesium 104 Potassium Phosphate 249 40 Medicated IV 490 331 312 22.6 CC - Propofol/Diprivan 490 331 312 22.6 Oral 0 0 0 Tube Feeding 2219 1057 894 470 Tube Feeding Flush Amount 250 150 Output: Edmonds 1940 839 2500 650 Liquid Stool 1000 Other: # Bowel Movements 1 2 Estimated Stool Amount Large Large Large Labs: Laboratory Results - last 24 hr 08/07/17 08/07/17 08/08/17 18:02 23:38 05:45 WBC 7.8 RBC 3.44 L Hgb 9.9 L Hct 29 L MCV 84 MCH 29 MCHC 34 RDW 18 H Plt Count 116 L MPV 9 Neut % (Auto) 75.9 Lymph % (Auto) 10.9 L Tillman % (Auto) 9.8 H Eos % (Auto) 2.8 Baso % (Auto) 0.6 Absolute Neuts (auto) 5.9 Absolute Lymphs (auto) 0.8 L Absolute Monos (auto) 0.8 Absolute Eos (auto) 0.2 Absolute Basos (auto) 0 Absolute Nucleated RBC 0 Nucleated RBC % 0.1 Sodium Potassium Chloride Carbon Dioxide Anion Gap BUN Creatinine Est GFR ( Amer) Est GFR (Non-Af Amer) BUN/Creatinine Ratio Glucose POC Glucose (mg/dL) 284 H 315 H Calcium Phosphorus Magnesium Total Bilirubin AST ALT Alkaline Phosphatase Ammonia Total Protein Albumin Globulin Albumin/Globulin Ratio 08/08/17 08/08/17 08/08/17 05:45 05:45 05:46 WBC RBC Hgb Hct MCV MCH MCHC RDW Plt Count MPV Neut % (Auto) Lymph % (Auto) Tillman % (Auto) Eos % (Auto) Baso % (Auto) Absolute Neuts (auto) Absolute Lymphs (auto) Absolute Monos (auto) Absolute Eos (auto) Absolute Basos (auto) Absolute Nucleated RBC Nucleated RBC % Sodium 137 Potassium 4.0 Chloride 108 Carbon Dioxide 24 Anion Gap 5 BUN 10 Creatinine 0.53 L Est GFR ( Amer) 203.3 Est GFR (Non-Af Amer) 158.1 BUN/Creatinine Ratio 18.9 Glucose 281 H POC Glucose (mg/dL) 301 H Calcium 8.0 L Phosphorus 1.9 L Magnesium 1.9 Total Bilirubin 0.50 AST 23 ALT 22 Alkaline Phosphatase 78 Ammonia 63 H Total Protein 5.7 L Albumin 2.2 L Globulin 3.5 Albumin/Globulin Ratio 0.6 L 08/08/17 11:33 WBC RBC Hgb Hct MCV MCH MCHC RDW Plt Count MPV Neut % (Auto) Lymph % (Auto) Tillman % (Auto) Eos % (Auto) Baso % (Auto) Absolute Neuts (auto) Absolute Lymphs (auto) Absolute Monos (auto) Absolute Eos (auto) Absolute Basos (auto) Absolute Nucleated RBC Nucleated RBC % Sodium Potassium Chloride Carbon Dioxide Anion Gap BUN Creatinine Est GFR ( Amer) Est GFR (Non-Af Amer) BUN/Creatinine Ratio Glucose POC Glucose (mg/dL) 314 H Calcium Phosphorus Magnesium Total Bilirubin AST ALT Alkaline Phosphatase Ammonia Total Protein Albumin Globulin Albumin/Globulin Ratio Impression: 62 y o m with h/o CVA transferred from assisted living facility for agitation, possible sepsis from cellulitis and decub 1. Encephalopathy: off sedation, more responsive however getting agitated 2. S/p intubation for airway protection 3. Delirium 4. RLE Cellulitis not in shock 5. CAD s/p CABG Plan: 1.Neurologic: Off sedation, continued periods of agitation, will start precedex. f/u delirum . Neurology consultation appreciated. No signs of seizure activity, CSF negative for infection/meningitis. CT brain didnot show acute changes. Agitation/delirium likely sec to metabolic encephalopathy 2. Cardiovascular: Hemodynamically stable, vol status stable 3.Respiratory: Resp mechanics are acceptable, minimal FiO2 requirements. Did well on CPAP, extubation on hold awaiting clear neurological picture 4.Gastrointestinal: continue tube feeds, lactulose. sup 5.Renal/Metabolic: Good UO, lytes f/u and replete as needed 6.Infectious Disease: Continue zosyn for cellulitis. No leucocytosis 7. Hematology: Hb, plt stable. 8.Endocrine: H/o DM, sugars around 300`s, Insulin SS, will adjust lantus dose. 9.Musculoskeletal: Heel ulcers, cellulitis, frequent positioning, sacral decub precuations and care, wound care consult placed 10.Psych/Social: Noted to have significant agitation and delirium, start precedex drip Supportive and preventative care as ordered. VTE prophylaxis: heparin Edmonds catheter given critical illness, monitoring needs for accurate assessment of JHON for critically ill patients and to avoid potential harms of urinary retention, skin breakdown/ulcers. Restraints: Reviewed and required. Disposition: ICU Code Status: Full Critical Care Time: 30min Critical Care Time:
[2017-08-08] MEDS: Piperacillin/Tazobactam 13.5 GM IV 24 hour continuous infusion IVPB SCH ×2 (16:19)
[2017-08-08] MEDS ORDERED: hydrALAZINE IV* 20 MG/ML VIAL IV SLOW PU ONE (22:00)
[2017-08-08] MEDS: Ziprasidone IM INJ* 20 MG/ML VIAL IM PRN (22:50)
--- NOTE | 2017-08-09 01:09 | PN ---
Progress Note - Progress Note Date of Service: 08/09/17 Note: Nursing called reporting self-extubation despite previously given ziprazidone & LUE wrist soft restraint. Upon arrival, he remains quite confused/ encephalopathic & does not follow commands. However, he does have a good cough & brings up copious blood tinged phlegm. He is in no overt respiratory distress , in fact has an saO2 >95% on room air. Lungs are rhonchorous R>L w/o accessory muscle use. CV is sinus tachycardia 105-115. BP is stable. Abdomen is SNTND. Extremities are warm & dry. Jim Montero MD pulmonology on-call apprised & agrees with plan to monitor w/o re-intubation at this time.
[2017-08-09] MEDS: fentaNYL* 50 MCG/ML 2 ML VIAL (100 MCG VIAL) IV SLOW PU PRN ×3 (04:22→20:54)
[2017-08-09] MEDS: Insulin LISPRO* 1 UNITS UNIT SUBCUT SCH ×3 (05:47→17:52)
[2017-08-09] MEDS: Heparin VIAL(*) 5000 UNITS/ML VIAL (FIVE THOUSAND) SUBCUT SCH ×3 (05:47→21:44)
[2017-08-09] MEDS: Famotidine SUSP* 40 MG/5 ML ORAL.SYRIN G TUBE SCH (10:23)
--- NOTE | 2017-08-09 12:32 | PN ---
Progress Note - Progress Note Date of Service: 08/09/17 Note: CRITICAL CARE MEDICINE DATE: 08/09/17 TIME: 930 SUBJECTIVE: Patient seen and examined. self extubated last pm. PHYSICAL EXAM: Vital Signs: Reviewed. RA Neurologic: awake, more alert to self and environment. answering some questions. some expressive aphasia more evident. HEENT: mmm, poor dentition, no stridor. Cardiovascular: distant, S1, S2; no m appreciated Respiratory: mild rhonchi Abdomen: obese, soft, nt Extremities: chronic changes; mild cellulitic changes right leg better. Access: piv LABS: Reviewed. IMAGING: Reviewed. MEDICATIONS: Reviewed. ASSESSMENT: 62 M Encephalopathy: multifactorial - metabolic, hepatic: better Delirium ?degree of expressive aphasia contributing RLE Cellulitis Cad- h/o cabg ?Dementia PLAN: Neurologic: better. avoid sedation, benzos, and use geodon prn morphine for now intermittent. Cardiovascular: perfusing. vol status ok. Respiratory: airway concerns better but needs close watch. RA Gastrointestinal: f/u as not ready to swallow yet. may need ngt and tf if going to take time. f/u lactulose needs Renal/Metabolic: lytes f/u and replete Infectious Disease: continued zosyn for cellulitis and can complete course. Hematology: Hb, plt ok Endocrine: ssi. adjust lantus. Musculoskeletal: avoid deconditioning; not ready for pt yet Psych/Social: following social needs Supportive and preventative care as ordered. SUP: h2 VTE prophylaxis: heparin Edmonds catheter given critical illness, monitoring needs for accurate assessment of JHON and KDIGO criteria for critically ill patients and to avoid potential harms of urinary retention, skin breakdown/ulcers. Disposition: ICU Code Status: Full Critical Care Time: 25min FTomás Paez DO
[2017-08-09] MEDS: Insulin GLARGINE(*) 1 UNITS UNIT SUBCUT SCH (16:28)
[2017-08-09] MEDS: Piperacillin/Tazobactam 13.5 GM IV 24 hour continuous infusion IVPB SCH ×2 (17:04)
[2017-08-09] MEDS: Ziprasidone IM INJ* 20 MG/ML VIAL IM PRN (19:09)
[2017-08-09] MEDS: hydrALAZINE IV* 20 MG/ML VIAL IV SLOW PU PRN (21:44)
[2017-08-10] MEDS: Insulin LISPRO* 1 UNITS UNIT SUBCUT SCH ×5 (00:52→23:22)
[2017-08-10] MEDS: fentaNYL* 50 MCG/ML 2 ML VIAL (100 MCG VIAL) IV SLOW PU PRN (03:02)
[2017-08-10] MEDS: hydrALAZINE IV* 20 MG/ML VIAL IV SLOW PU PRN ×2 (05:06→19:48)
[2017-08-10] MEDS: Heparin VIAL(*) 5000 UNITS/ML VIAL (FIVE THOUSAND) SUBCUT SCH ×3 (05:29→21:32)
[2017-08-10 06:07] LABS: ABS Basophils 0.1 10^3/ul (0-0.2); ABS Eosinophils 0.2 10^3/ul (0-0.6); ABS Lymphocytes 1.2 10^3/ul (1.0-4.8); ABS Monocytes 1.4 10^3/ul (0-0.8); ABS Neutrophils 20.9 10^3/ul (1.5-7.7); ABS Nucleated RBC 0 10^3/ul; Eosinophil % 0.9 % (0-6); Hematocrit 34 % (42-52); Hemoglobin 11.2 g/dl (14.0-18.0); Lymphocyte % 4.9 % (25-47); Mean Corpuscular HGB Conc 33 g/dl (31-36); Mean Corpuscular Hemoglobin 28 pg (27-31); Mean Corpuscular Volume 83 fL (80-94); Nucleated Red Blood Cells % 0; Red Blood Count 4.04 10^6/ul (4.0-5.4); Red Cell Distribution Width 17 % (10.5-15); White Blood Count 23.8 10^3/ul (3.5-10.8)
[2017-08-10 06:09] LABS: EGFR Non-African American 195.9 (>60)
[2017-08-10] MEDS ORDERED: Magnesium Sulfate 2 GM IV* 2 GM/50 ML BAG IVPB ONE (06:44)
[2017-08-10] MEDS ORDERED: Potassium Chlor TAB* 20 MEQ TAB.ER PO ONE (06:44)
[2017-08-10 06:49] LABS: Mean Platelet Volume 9 um3 (7.4-10.4); Platelet Count 189 10^3/ul (150-450)
[2017-08-10] MEDS ORDERED: Magnesium Sulf 4 GM/100 ML IV* 4,000 MG/100 ML BAG IVPB ONE (07:40)
[2017-08-10] MEDS ORDERED: Potassium Phosphate IV* 20 MMOLE in NS 0.9% 250 ML* 250 ML IVPB ONE (08:30)
[2017-08-10] MEDS: Famotidine SUSP* 40 MG/5 ML ORAL.SYRIN G TUBE SCH (11:18)
[2017-08-10] MEDS ORDERED: Haloperidol INJ IV/IM* 5 MG/ML AMP IV SLOW PU PRN (12:06)
--- NOTE | 2017-08-10 12:10 | PN ---
Progress Note - Progress Note Date of Service: 08/10/17 Note: CRITICAL CARE MEDICINE DATE: 08/10/17 TIME: 925 SUBJECTIVE: Patient seen and examined. PHYSICAL EXAM: Vital Signs: Reviewed. RA Neurologic: awake, more communication but aphasia still apparent. HEENT: mmm, poor dentition. Cardiovascular: distant, S1, S2; no m appreciated Respiratory: relatively clear Abdomen: obese, soft, nt Extremities: chronic changes of legs Access: piv LABS: Reviewed. IMAGING: Reviewed. MEDICATIONS: Reviewed. ASSESSMENT: 62 M Encephalopathy: multifactorial - metabolic, hepatic: better Delirium certainly a degree of expressive aphasia contributing RLE Cellulitis Cad- h/o cabg Dementia PLAN: Neurologic: better. avoid sedation, has done ok with prn geodon and can use prn haldol as needed. still some mild waxing and waning but otherwise stable. Cardiovascular: perfusing. vol status ok. Respiratory: airway concerns much better. RA Gastrointestinal: swallow eval today and hopefully start diet today. lactulose needs and f/u Renal/Metabolic: replete lytes. can mindy thompson Infectious Disease: continued zosyn to complete this weekend for cellulitis. wbc up but seems clinically unrelated. f/u vinod Hematology: Hb, plt ok Endocrine: ssi. adjusted lantus down slightly and f/u. Musculoskeletal: PT needs. Psych/Social: social work needs Supportive and preventative care as ordered. SUP: h2 VTE prophylaxis: heparin Disposition: to floor; will take time to resort his dispo needs Code Status: Full Critical Care Time: 25min Meri Paez DO
[2017-08-10] MEDS: Insulin GLARGINE(*) 1 UNITS UNIT SUBCUT SCH (12:48)
[2017-08-10] MEDS: Potassium Chloride LIQUID* 20 MEQ PACKET PO SCH ×3 (13:56→21:28)
[2017-08-10] MEDS: ZOSYN 3.375 GM Q8H per EXTENDED INFUSION IVPB SCH ×2 (21:39)
[2017-08-11] MEDS: hydrALAZINE IV* 20 MG/ML VIAL IV SLOW PU PRN (03:17)
[2017-08-11] MEDS: ZOSYN 3.375 GM Q8H per EXTENDED INFUSION IVPB SCH ×4 (04:32→13:12)
[2017-08-11] MEDS ORDERED: Ondansetron INJ* 2 MG/ML VIAL IV PRN (05:15)
[2017-08-11] MEDS ORDERED: Ondansetron INJ* 2 MG/ML VIAL ONE (05:19)
[2017-08-11] MEDS: Heparin VIAL(*) 5000 UNITS/ML VIAL (FIVE THOUSAND) SUBCUT SCH ×3 (05:24→22:36)
[2017-08-11] MEDS: Insulin LISPRO* 1 UNITS UNIT SUBCUT SCH ×3 (05:40→18:13)
[2017-08-11 08:46] LABS: ABS Basophils 0.1 10^3/ul (0-0.2); ABS Eosinophils 0 10^3/ul (0-0.6); ABS Lymphocytes 0.7 10^3/ul (1.0-4.8); ABS Monocytes 1.4 10^3/ul (0-0.8); ABS Neutrophils 13.4 10^3/ul (1.5-7.7); ABS Nucleated RBC 0 10^3/ul; Eosinophil % 0.3 % (0-6); Hematocrit 34 % (42-52); Hemoglobin 11.2 g/dl (14.0-18.0); Lymphocyte % 4.7 % (25-47); Mean Corpuscular HGB Conc 33 g/dl (31-36); Mean Corpuscular Hemoglobin 28 pg (27-31); Mean Corpuscular Volume 82 fL (80-94); Mean Platelet Volume 8 um3 (7.4-10.4); Nucleated Red Blood Cells % 0.2; Platelet Count 272 10^3/ul (150-450); Red Blood Count 4.08 10^6/ul (4.0-5.4); Red Cell Distribution Width 17 % (10.5-15); White Blood Count 15.6 10^3/ul (3.5-10.8)
[2017-08-11] MEDS: Ondansetron INJ* 2 MG/ML VIAL IV PRN ×2 (09:30→13:11)
[2017-08-11] MEDS: Insulin GLARGINE(*) 1 UNITS UNIT SUBCUT SCH (13:12)
--- NOTE | 2017-08-11 16:01 | PN ---
Subjective Date of Service: 08/11/17 Interval History: He offers no c/o. when I asked if he had pain I think he said yes but could not localizew it. He may not have said that he has pain. His communicationn skjills are very poor. Objective Active Medications: Albuterol/Ipratropium (Duoneb (Albuterol 2.5 Mg/Ipratropium 0.5 Mg)) 1 neb INH Q4H PRN PRN Reason: SOB/WHEEZING Dextrose (D50w Syringe 50 Ml*) 12.5 gm IV PUSH .FOR FS < 60 - SS PRN PRN Reason: FS < 60 Haloperidol Lactate (Haldol Inj Iv/Im*) 2 mg IV SLOW PU Q6H PRN PRN Reason: AGITATION Last Admin: 08/10/17 22:36 Dose: 2 mg Heparin Sodium (Porcine) (Heparin Vial(*)) 5,000 units SUBCUT Q8HR [facility] Last Admin: 08/11/17 13:12 Dose: 5,000 units Hydralazine HCl (Apresoline Iv*) 5 mg IV SLOW PU Q6H PRN PRN Reason: SBP>170 Last Admin: 08/11/17 03:17 Dose: 5 mg Potassium Chloride/Dextrose (D5w 1/2 Ns Kcl 20 Meq 1000 Ml*) 1,000 mls @ 75 mls /hr IV PER RATE [facility] Ceftriaxone Sodium 1 gm/ (Sodium Chloride) 50 mls @ 200 mls/hr IVPB Q24H [facility] Insulin Glargine (Lantus(*)) 40 units SUBCUT Q24H [facility] Last Admin: 08/11/17 13:12 Dose: 40 units Insulin Human Lispro (Humalog*) 0 units SUBCUT Q6HR [facility] PRN Reason: Protocol Last Admin: 08/11/17 13:13 Dose: Not Given Ondansetron HCl (Zofran Inj*) 4 mg IV Q3H PRN PRN Reason: NAUSEA Last Admin: 08/11/17 13:11 Dose: 4 mg Pharmacy Consult (Zosyn Per Pharmacy*) 1 note FOLLOW UP .ZOSYN PER PHARMACY [facility] Stop: 08/12/17 00:01 Vital Signs - 8 hr 08/11/17 11:19 Temperature 98.1 F Pulse Rate 95 Respiratory 18 Rate Blood Pressure 142/63 (mmHg) Oxygen Devices in Use Now: None Appearance: Alert, partly up in bed. Passive but somewhat restless, otherwise looks comfortable. Eyes: No Scleral Icterus Neck: NL Appearance and Movements; NL JVP, No Thyroid Enlargement, Masses Respiratory: Symmetrical Chest Expansion and Respiratory Effort, Clear to Auscultation, Clear to Percussion Cardiovascular: NL Sounds; No Murmurs; No JVD, RRR, No Edema, - Extremities: No Edema, No Clubbing, Cyanosis Skin: No Nodules or Sclerosis, - - hyperpigmented area R lateral lower leg. Dime-sized ulcer R medial foot with eschar. Neurological: NL Sensation - R hemiparesis. Dysarthia and severe aphasia. He can say his full name with difficulty, does not seem to answer any other questions. Result Diagrams: 08/11/17 08:26 08/11/17 08:26 Microbiology and Other Data: Microbiology 08/01/17 12:56 Nasal Screen MRSA (PCR)(ROSS) - Final Nasal Mrsa Not Detected Assess/Plan/Problems-Billing Assessment: - Patient Problems (1) Cellulitis Current Visit: Yes Status: Acute Code(s): L03.90 - CELLULITIS, UNSPECIFIED SNOMED Code(s): 425840905 Comment: Ceftriaxone ordered again 08/11, probably can stop all antibiotic in a day or so. (2) CVA (cerebral vascular accident) Current Visit: Yes Status: Acute Code(s): I63.9 - CEREBRAL INFARCTION, UNSPECIFIED SNOMED Code(s): 923812396 Comment: Old CVA with R hemiparesis. I spoke to his nurse at the [facility]. He was ambulatory and oriented as of 1 week ago, up to his admission to [facility] 07/21/17. PT/OT ordered. He will need DION.
[2017-08-11] MEDS ORDERED: cefTRIAXone(*) 1 GM in D5W 50 ML BAG* 50 ML IVPB SCH (16:30)
[2017-08-11] MEDS: D5W 1/2 NS KCl 20 Meq 1000 ML* 1,000 ML IV SCH (17:25)
[2017-08-12] MEDS: Insulin LISPRO* 1 UNITS UNIT SUBCUT SCH ×4 (00:25→19:15)
[2017-08-12] MEDS: Heparin VIAL(*) 5000 UNITS/ML VIAL (FIVE THOUSAND) SUBCUT SCH ×3 (05:56→22:33)
[2017-08-12] MEDS ORDERED: Zosyn per Pharmacy* NOTE FOLLOW UP SCH (12:00)
--- NOTE | 2017-08-12 12:11 | PN ---
Subjective Date of Service: 08/12/17 Interval History: Noted to be a little more alert today compared to yesterday by nursing staff pt unable to make needs known Objective Active Medications: Albuterol/Ipratropium (Duoneb (Albuterol 2.5 Mg/Ipratropium 0.5 Mg)) 1 neb INH Q4H PRN PRN Reason: SOB/WHEEZING Clotrimazole (Clotrimazole 1%*) 1 applic TOPICAL BID [facility] Dextrose (D50w Syringe 50 Ml*) 12.5 gm IV PUSH .FOR FS < 60 - SS PRN PRN Reason: FS < 60 Haloperidol Lactate (Haldol Inj Iv/Im*) 2 mg IV SLOW PU Q6H PRN PRN Reason: AGITATION Last Admin: 08/10/17 22:36 Dose: 2 mg Heparin Sodium (Porcine) (Heparin Vial(*)) 5,000 units SUBCUT Q8HR [facility] Last Admin: 08/12/17 05:56 Dose: 5,000 units Hydralazine HCl (Apresoline Iv*) 5 mg IV SLOW PU Q6H PRN PRN Reason: SBP>170 Last Admin: 08/11/17 03:17 Dose: 5 mg Potassium Chloride/Dextrose (D5w 1/2 Ns Kcl 20 Meq 1000 Ml*) 1,000 mls @ 75 mls /hr IV PER RATE [facility] Last Admin: 08/11/17 17:25 Dose: 75 mls/hr Piperacillin Sod/Tazobactam (Sod 3.375 gm/ Sodium Chloride) 100 mls @ 200 mls/ hr IVPB ONCE ONE Stop: 08/12/17 12:59 Piperacillin Sod/Tazobactam (Sod 3.375 gm/ Sodium Chloride) 100 mls @ 25 mls/ hr IVPB Q8H [facility] Insulin Glargine (Lantus(*)) 40 units SUBCUT Q24H [facility] Last Admin: 08/11/17 13:12 Dose: 40 units Insulin Human Lispro (Humalog*) 0 units SUBCUT Q6HR [facility] PRN Reason: Protocol Last Admin: 08/12/17 05:56 Dose: Not Given Ondansetron HCl (Zofran Inj*) 4 mg IV Q3H PRN PRN Reason: NAUSEA Last Admin: 08/11/17 13:11 Dose: 4 mg Pharmacy Consult (Zosyn Per Pharmacy*) 1 note FOLLOW UP .ZOSYN PER PHARMACY [facility] Vital Signs - 8 hr 08/12/17 08/12/17 07:15 09:10 Temperature 97.7 F Pulse Rate 99 Respiratory 18 18 Rate Blood Pressure 125/39 (mmHg) O2 Sat by Pulse 94 Oximetry Oxygen Devices in Use Now: None Appearance: sitting up in bed, NAD Eyes: No Scleral Icterus, PERRLA Ears/Nose/Mouth/Throat: Clear Oropharnyx, Mucous Membranes Moist Neck: NL Appearance and Movements; NL JVP, Trachea Midline Respiratory: Symmetrical Chest Expansion and Respiratory Effort, Clear to Auscultation Cardiovascular: RRR, - - 2/6 MAITE Abdominal: NL Sounds; No Tenderness; No Distention, No Hepatosplenomegaly Lymphatic: No Cervical Adenopathy Extremities: No Edema Skin: - - dry peeling red skin around kim and nose Neurological: - - non verbal today, followed simpple command "open your mouth" Result Diagrams: 08/11/17 08:26 08/11/17 08:26 Microbiology and Other Data: Microbiology 08/01/17 12:56 Nasal Screen MRSA (PCR)(ROSS) - Final Nasal Mrsa Not Detected Assess/Plan/Problems-Billing Assessment: 62 yo M h/o CVA with rightsided hemiparesis, dementia p/w cellulitis c/b sepsis - Patient Problems (1) Seborrhea Comment: topical clotrimazole to face (2) CVA (cerebral vascular accident) Comment: Old CVA with R hemiparesis. Dr. Wetzel spoke to his nurse at the [facility]. He was ambulatory and oriented as of 1 week ago, up to his admission to [facility] 07/21/17. Daniel lift - will need DION (3) Cellulitis Comment: CTX change dbacked to zosyn because bacteria were noted to be resistant to CTZ at [facility] Repeat CBC (4) DVT prophylaxis Comment: HSQ
[2017-08-12 12:27] LABS: ABS Basophils 0 10^3/ul (0-0.2); ABS Eosinophils 0.1 10^3/ul (0-0.6); ABS Monocytes 1.5 10^3/ul (0-0.8); ABS Neutrophils 10.8 10^3/ul (1.5-7.7); ABS Nucleated RBC 0 10^3/ul; Eosinophil % 0.4 % (0-6); Hematocrit 30 % (42-52); Hemoglobin 10.1 g/dl (14.0-18.0); Lymphocyte % 7.4 % (25-47); Mean Corpuscular HGB Conc 33 g/dl (31-36); Mean Corpuscular Hemoglobin 28 pg (27-31); Mean Corpuscular Volume 83 fL (80-94); Mean Platelet Volume 7 um3 (7.4-10.4); Nucleated Red Blood Cells % 0; Platelet Count 223 10^3/ul (150-450); Red Blood Count 3.67 10^6/ul (4.0-5.4); Red Cell Distribution Width 17 % (10.5-15); White Blood Count 13.4 10^3/ul (3.5-10.8)
[2017-08-12] MEDS ORDERED: Piperacillin/Tazobac ADVAN(*) 3.375 GM in NS 0.9% 100 ML* 100 ML IVPB ONE (12:30)
[2017-08-12] MEDS: Insulin GLARGINE(*) 1 UNITS UNIT SUBCUT SCH (13:22)
[2017-08-12] MEDS: Clotrimazole 1% CREAM* 30 GM TOPICAL SCH ×2 (13:24→22:33)
[2017-08-12] MEDS: ZOSYN 3.375 GM Q8H per EXTENDED INFUSION IVPB SCH ×2 (17:14)
[2017-08-12] MEDS: D5W 1/2 NS KCl 20 Meq 1000 ML* 1,000 ML IV SCH (21:11)
[2017-08-13] MEDS: Insulin LISPRO* 1 UNITS UNIT SUBCUT SCH ×4 (00:51→18:18)
[2017-08-13] MEDS: ZOSYN 3.375 GM Q8H per EXTENDED INFUSION IVPB SCH ×4 (00:59→09:08)
[2017-08-13 06:17] LABS: ABS Basophils 0.1 10^3/ul (0-0.2); ABS Eosinophils 0.2 10^3/ul (0-0.6); ABS Monocytes 1.2 10^3/ul (0-0.8); ABS Neutrophils 9.1 10^3/ul (1.5-7.7); ABS Nucleated RBC 0 10^3/ul; Eosinophil % 1.3 % (0-6); Hematocrit 29 % (42-52); Hemoglobin 9.6 g/dl (14.0-18.0); Lymphocyte % 9.1 % (25-47); Mean Corpuscular HGB Conc 34 g/dl (31-36); Mean Corpuscular Hemoglobin 28 pg (27-31); Mean Corpuscular Volume 82 fL (80-94); Mean Platelet Volume 7 um3 (7.4-10.4); Nucleated Red Blood Cells % 0.1; Platelet Count 223 10^3/ul (150-450); Red Blood Count 3.48 10^6/ul (4.0-5.4); Red Cell Distribution Width 17 % (10.5-15); White Blood Count 11.5 10^3/ul (3.5-10.8)
[2017-08-13] MEDS: Heparin VIAL(*) 5000 UNITS/ML VIAL (FIVE THOUSAND) SUBCUT SCH (06:21)
[2017-08-13] MEDS: Clotrimazole 1% CREAM* 30 GM TOPICAL SCH ×2 (09:14→21:26)
--- NOTE | 2017-08-13 11:04 | PN ---
Subjective Date of Service: 08/13/17 Interval History: Opens eyes to tactile stimuli, unable to make needs known Family History: Unchanged from Admission Social History: Unchanged from Admission Past Medical History: Unchanged from Admission Objective Active Medications: Albuterol/Ipratropium (Duoneb (Albuterol 2.5 Mg/Ipratropium 0.5 Mg)) 1 neb INH Q4H PRN PRN Reason: SOB/WHEEZING Clotrimazole (Clotrimazole 1%*) 1 applic TOPICAL BID [facility] Last Admin: 08/13/17 09:14 Dose: 1 applic Dextrose (D50w Syringe 50 Ml*) 12.5 gm IV PUSH .FOR FS < 60 - SS PRN PRN Reason: FS < 60 Haloperidol Lactate (Haldol Inj Iv/Im*) 2 mg IV SLOW PU Q6H PRN PRN Reason: AGITATION Last Admin: 08/10/17 22:36 Dose: 2 mg Heparin Sodium (Porcine) (Heparin Vial(*)) 5,000 units SUBCUT Q8HR [facility] Last Admin: 08/13/17 06:21 Dose: 5,000 units Hydralazine HCl (Apresoline Iv*) 5 mg IV SLOW PU Q6H PRN PRN Reason: SBP>170 Last Admin: 08/11/17 03:17 Dose: 5 mg Potassium Chloride/Dextrose (D5w 1/2 Ns Kcl 20 Meq 1000 Ml*) 1,000 mls @ 75 mls /hr IV PER RATE [facility] Last Admin: 08/12/17 21:11 Dose: 75 mls/hr Piperacillin Sod/Tazobactam (Sod 3.375 gm/ Sodium Chloride) 100 mls @ 200 mls/ hr IVPB Q6H [facility] Insulin Glargine (Lantus(*)) 40 units SUBCUT Q24H [facility] Last Admin: 08/12/17 13:22 Dose: 40 units Insulin Human Lispro (Humalog*) 0 units SUBCUT Q6HR [facility] PRN Reason: Protocol Last Admin: 08/13/17 06:21 Dose: 1 unit Ondansetron HCl (Zofran Inj*) 4 mg IV Q3H PRN PRN Reason: NAUSEA Last Admin: 08/11/17 13:11 Dose: 4 mg Pharmacy Consult (Zosyn Per Pharmacy*) 1 note FOLLOW UP .ZOSYN PER PHARMACY [facility] Vital Signs - 8 hr 08/13/17 08/13/17 08/13/17 04:01 07:23 08:08 Temperature 98.0 F 97.9 F Pulse Rate 88 Respiratory 16 16 Rate Blood Pressure 123/54 (mmHg) O2 Sat by Pulse 98 Oximetry Oxygen Devices in Use Now: None Appearance: appears comfortable Eyes: No Scleral Icterus Ears/Nose/Mouth/Throat: Clear Oropharnyx, Mucous Membranes Moist Neck: NL Appearance and Movements; NL JVP, Trachea Midline Respiratory: Symmetrical Chest Expansion and Respiratory Effort, Clear to Auscultation Cardiovascular: NL Sounds; No Murmurs; No JVD, RRR, No Edema Abdominal: NL Sounds; No Tenderness; No Distention Extremities: No Edema, No Clubbing, Cyanosis Skin: No Rash or Ulcers Neurological: - - opens eyes to tactile, unable to make needs known Nutrition: Taking PO's Result Diagrams: 08/13/17 15:19 08/11/17 08:26 Microbiology and Other Data: Microbiology 08/01/17 12:56 Nasal Screen MRSA (PCR)(ROSS) - Final Nasal Mrsa Not Detected Assess/Plan/Problems-Billing Assessment: 62 yo M h/o CVA with rightsided hemiparesis, dementia p/w cellulitis c/b sepsis - Patient Problems (1) Cellulitis Current Visit: Yes Status: Acute Code(s): L03.90 - CELLULITIS, UNSPECIFIED SNOMED Code(s): 076307770 Comment: CTX change backed to zosyn because bacteria were noted to be resistant to CTZ at [facility] Repeat CBC (2) CVA (cerebral vascular accident) Current Visit: Yes Status: Acute Code(s): I63.9 - CEREBRAL INFARCTION, UNSPECIFIED SNOMED Code(s): 663983577 Comment: Old CVA with R hemiparesis. Dr. Wetzel spoke to his nurse at the [facility]. He was ambulatory and oriented as of 1 week ago, up to his admission to [facility] 07/21/17. Daniel lift - will need DION (3) GI bleed Current Visit: Yes Status: Acute Code(s): K92.2 - GASTROINTESTINAL HEMORRHAGE, UNSPECIFIED SNOMED Code(s): 57807070 Comment: heparin held Will trend h/h Q 6 hours Protonix 80 mg iv x 1 then drip at 8 mg / hr will consult GI (4) Hypokalemia Current Visit: Yes Status: Acute Code(s): E87.6 - HYPOKALEMIA SNOMED Code( s): 45655068 Comment: Maintenance IV fluids with KCL. BMP 08/02. (5) Seborrhea Current Visit: Yes Status: Acute Code(s): L21.9 - SEBORRHEIC DERMATITIS, UNSPECIFIED SNOMED Code(s): 60692435 Comment: topical clotrimazole to face (6) DVT prophylaxis Current Visit: Yes Status: Acute Code(s): LUW7819 - SNOMED Code(s): 168408383 Comment: HSQ- Hold patient with large dark tarry BM- occult pending Status and Disposition: inpatient- will need short term rehab at discharge
[2017-08-13] MEDS: Insulin GLARGINE(*) 1 UNITS UNIT SUBCUT SCH (13:02)
[2017-08-13] MEDS: D5W 1/2 NS KCl 20 Meq 1000 ML* 1,000 ML IV SCH (13:10)
[2017-08-13] MEDS ORDERED: Pantoprazole IV* 40 MG IV ONE (15:00)
[2017-08-13 15:31] LABS: Hematocrit 27 % (42-52); Hemoglobin 9.2 g/dl (14.0-18.0)
[2017-08-13] MEDS: ZOSYN 3.375 GM Q6H - Intermittant 30 min Infusion IVPB SCH ×4 (15:31→21:17)
[2017-08-13] MEDS: Pantoprazole IV* 80 MG in NS 0.9% 250 ML* 250 ML IVPB SCH (17:03)
[2017-08-13 21:22] LABS: Hematocrit 29 % (42-52); Hemoglobin 10.1 g/dl (14.0-18.0)
[2017-08-14] MEDS: Insulin LISPRO* 1 UNITS UNIT SUBCUT SCH ×4 (01:15→17:56)
[2017-08-14 02:52] LABS: Hematocrit 28 % (42-52); Hemoglobin 9.4 g/dl (14.0-18.0)
[2017-08-14] MEDS: ZOSYN 3.375 GM Q6H - Intermittant 30 min Infusion IVPB SCH ×8 (03:02→21:11)
[2017-08-14] MEDS: Pantoprazole IV* 80 MG in NS 0.9% 250 ML* 250 ML IVPB SCH ×2 (03:05→13:16)
[2017-08-14] MEDS: D5W 1/2 NS KCl 20 Meq 1000 ML* 1,000 ML IV SCH (03:22)
[2017-08-14 06:23] LABS: ABS Basophils 0.1 10^3/ul (0-0.2); ABS Eosinophils 0.3 10^3/ul (0-0.6); ABS Lymphocytes 1.2 10^3/ul (1.0-4.8); ABS Monocytes 0.9 10^3/ul (0-0.8); ABS Neutrophils 5.8 10^3/ul (1.5-7.7); ABS Nucleated RBC 0 10^3/ul; Hematocrit 28 % (42-52); Hemoglobin 9.7 g/dl (14.0-18.0); Lymphocyte % 14.1 % (25-47); Mean Corpuscular HGB Conc 35 g/dl (31-36); Mean Corpuscular Hemoglobin 29 pg (27-31); Mean Corpuscular Volume 82 fL (80-94); Mean Platelet Volume 7 um3 (7.4-10.4); Nucleated Red Blood Cells % 0; Platelet Count 231 10^3/ul (150-450); Red Blood Count 3.39 10^6/ul (4.0-5.4); Red Cell Distribution Width 17 % (10.5-15); White Blood Count 8.3 10^3/ul (3.5-10.8)
[2017-08-14 06:37] LABS: EGFR Non-African American 190.9 (>60)
[2017-08-14] MEDS: Clotrimazole 1% CREAM* 30 GM TOPICAL SCH ×2 (08:28→21:13)
[2017-08-14 08:45] LABS: Hematocrit 28 % (42-52); Hemoglobin 9.8 g/dl (14.0-18.0)
[2017-08-14] MEDS: Insulin GLARGINE(*) 1 UNITS UNIT SUBCUT SCH (12:40)
[2017-08-14 15:15] LABS: Hematocrit 29 % (42-52); Hemoglobin 9.9 g/dl (14.0-18.0)
[2017-08-14] MEDS ORDERED: KCL 20 MEQ/100 ML IVPREMIX* 20 MEQ/100 ML BAG IV ONE (18:29)
--- NOTE | 2017-08-14 18:29 | PN ---
Subjective Date of Service: 08/14/17 Interval History: Alert to verbal, no complaints, Feeling better today. Denies chest pain or shortness of breath. denies abd pain; n/v/d Family History: Unchanged from Admission Social History: Unchanged from Admission Past Medical History: Unchanged from Admission Objective Active Medications: Albuterol/Ipratropium (Duoneb (Albuterol 2.5 Mg/Ipratropium 0.5 Mg)) 1 neb INH Q4H PRN PRN Reason: SOB/WHEEZING Clotrimazole (Clotrimazole 1%*) 1 applic TOPICAL BID [facility] Last Admin: 08/14/17 08:28 Dose: 1 applic Dextrose (D50w Syringe 50 Ml*) 12.5 gm IV PUSH .FOR FS < 60 - SS PRN PRN Reason: FS < 60 Hydralazine HCl (Apresoline Iv*) 5 mg IV SLOW PU Q6H PRN PRN Reason: SBP>170 Last Admin: 08/11/17 03:17 Dose: 5 mg Potassium Chloride/Dextrose (D5w 1/2 Ns Kcl 20 Meq 1000 Ml*) 1,000 mls @ 75 mls /hr IV PER RATE [facility] Last Admin: 08/14/17 03:22 Dose: 75 mls/hr Piperacillin Sod/Tazobactam (Sod 3.375 gm/ Sodium Chloride) 100 mls @ 200 mls/ hr IVPB Q6H [facility] Last Admin: 08/14/17 15:30 Dose: 200 mls/hr Pantoprazole Sodium 80 mg/ (Sodium Chloride) 250 mls @ 25 mls/hr IVPB Q10H [facility] Last Admin: 08/14/17 13:16 Dose: 25 mls/hr Insulin Glargine (Lantus(*)) 40 units SUBCUT Q24H [facility] Last Admin: 08/14/17 12:40 Dose: 40 units Insulin Human Lispro (Humalog*) 0 units SUBCUT Q6HR [facility] PRN Reason: Protocol Last Admin: 08/14/17 17:56 Dose: Not Given Ondansetron HCl (Zofran Inj*) 4 mg IV Q3H PRN PRN Reason: NAUSEA Last Admin: 08/11/17 13:11 Dose: 4 mg Pharmacy Consult (Zosyn Per Pharmacy*) 1 note FOLLOW UP .ZOSYN PER PHARMACY [facility] Vital Signs - 8 hr 08/14/17 08/14/17 11:44 16:06 Temperature 97.8 F 97.8 F Pulse Rate 87 82 Respiratory 18 24 Rate Blood Pressure 144/60 165/65 (mmHg) O2 Sat by Pulse 97 97 Oximetry Oxygen Devices in Use Now: None Appearance: appears comfortable lying in bed, responding to verbal commands Eyes: No Scleral Icterus Ears/Nose/Mouth/Throat: Clear Oropharnyx, Mucous Membranes Moist Neck: NL Appearance and Movements; NL JVP, Trachea Midline Respiratory: Symmetrical Chest Expansion and Respiratory Effort, Clear to Auscultation Cardiovascular: NL Sounds; No Murmurs; No JVD, RRR, No Edema Abdominal: NL Sounds; No Tenderness; No Distention Extremities: No Edema, No Clubbing, Cyanosis Skin: No Rash or Ulcers Neurological: Alert and Oriented x 3, - - responding appropriately to questions , awake alert, following commands Result Diagrams: 08/14/17 15:04 08/14/17 06:00 Microbiology and Other Data: Microbiology 08/01/17 12:56 Nasal Screen MRSA (PCR)(ROSS) - Final Nasal Mrsa Not Detected Assess/Plan/Problems-Billing Assessment: 62 yo M h/o CVA with rightsided hemiparesis, dementia p/w cellulitis c/b sepsis - Patient Problems (1) Cellulitis Current Visit: Yes Status: Acute Code(s): L03.90 - CELLULITIS, UNSPECIFIED SNOMED Code(s): 781082756 Comment: CTX change backed to zosyn because bacteria were noted to be resistant to CTZ at [facility] Repeat CBC (2) CVA (cerebral vascular accident) Current Visit: Yes Status: Acute Code(s): I63.9 - CEREBRAL INFARCTION, UNSPECIFIED SNOMED Code(s): 286781595 Comment: Old CVA with R hemiparesis. Dr. Wetzel spoke to his nurse at the [facility]. He was ambulatory and oriented as of 1 week ago, up to his admission to [facility] 07/21/17. Daniel lift - will need DION (3) GI bleed Current Visit: Yes Status: Acute Code(s): K92.2 - GASTROINTESTINAL HEMORRHAGE, UNSPECIFIED SNOMED Code(s): 81091570 Comment: heparin held Will trend h/h Q 6 hours~ Stable will continue to montior Protonix 80 mg iv x 1 then drip at 8 mg / hr (4) Hypokalemia Current Visit: Yes Status: Acute Code(s): E87.6 - HYPOKALEMIA SNOMED Code( s): 82193347 Comment: Maintenance IV fluids with KCL. Will given 40 meq additional today for K of 3.2 (5) Seborrhea Current Visit: Yes Status: Acute Code(s): L21.9 - SEBORRHEIC DERMATITIS, UNSPECIFIED SNOMED Code(s): 45361426 Comment: topical clotrimazole to face (6) DVT prophylaxis Current Visit: Yes Status: Acute Code(s): DTS1316 - SNOMED Code(s): 379314788 Comment: HSQ- Hold patient with large dark tarry BM- occult positive Status and Disposition: inpatient- will need short term rehab at discharge
[2017-08-14] MEDS ORDERED: KCL 20 MEQ/100 ML IVPREMIX* 20 MEQ/100 ML BAG IV SCH (19:00)
[2017-08-14] MEDS ORDERED: KCL premix 10 MEQ/50 ML IVPREMIX x 4 RUNS IV SCH (19:00)
[2017-08-14] MEDS ORDERED: Potassium Chloride LIQUID* 20 MEQ PACKET PO ONE (19:00)
[2017-08-15] MEDS: Insulin LISPRO* 1 UNITS UNIT SUBCUT SCH ×5 (00:47→23:46)
[2017-08-15] MEDS: ZOSYN 3.375 GM Q6H - Intermittant 30 min Infusion IVPB SCH ×6 (03:00→15:10)
[2017-08-15] MEDS: Pantoprazole IV* 80 MG in NS 0.9% 250 ML* 250 ML IVPB SCH ×2 (05:36→09:56)
[2017-08-15 06:14] LABS: ABS Basophils 0 10^3/ul (0-0.2); ABS Eosinophils 0.2 10^3/ul (0-0.6); ABS Monocytes 0.8 10^3/ul (0-0.8); ABS Neutrophils 6.5 10^3/ul (1.5-7.7); ABS Nucleated RBC 0 10^3/ul; Eosinophil % 2.3 % (0-6); Hematocrit 26 % (42-52); Lymphocyte % 11.8 % (25-47); Mean Corpuscular HGB Conc 34 g/dl (31-36); Mean Corpuscular Hemoglobin 28 pg (27-31); Mean Corpuscular Volume 82 fL (80-94); Mean Platelet Volume 7 um3 (7.4-10.4); Nucleated Red Blood Cells % 0.2; Platelet Count 247 10^3/ul (150-450); Red Blood Count 3.23 10^6/ul (4.0-5.4); Red Cell Distribution Width 17 % (10.5-15); White Blood Count 8.6 10^3/ul (3.5-10.8)
[2017-08-15 06:44] LABS: EGFR Non-African American 154.7 (>60)
[2017-08-15] MEDS: Clotrimazole 1% CREAM* 30 GM TOPICAL SCH ×2 (09:43→21:10)
[2017-08-15] MEDS: Insulin GLARGINE(*) 1 UNITS UNIT SUBCUT SCH (12:27)
[2017-08-15] MEDS: Omeprazole CAP* 20 MG PO SCH (15:06)
--- NOTE | 2017-08-15 19:38 | PN ---
Subjective Date of Service: 08/15/17 Interval History: no complaints . Denies chest pain or shortness of breath. Denies abd pain, n/v /d. Family History: Unchanged from Admission Social History: Unchanged from Admission Past Medical History: Unchanged from Admission Objective Active Medications: Albuterol/Ipratropium (Duoneb (Albuterol 2.5 Mg/Ipratropium 0.5 Mg)) 1 neb INH Q4H PRN PRN Reason: SOB/WHEEZING Clotrimazole (Clotrimazole 1%*) 1 applic TOPICAL BID [facility] Last Admin: 08/15/17 09:43 Dose: 1 applic Dextrose (D50w Syringe 50 Ml*) 12.5 gm IV PUSH .FOR FS < 60 - SS PRN PRN Reason: FS < 60 Hydralazine HCl (Apresoline Iv*) 5 mg IV SLOW PU Q6H PRN PRN Reason: SBP>170 Last Admin: 08/11/17 03:17 Dose: 5 mg Potassium Chloride/Dextrose (D5w 1/2 Ns Kcl 20 Meq 1000 Ml*) 1,000 mls @ 75 mls /hr IV PER RATE [facility] Last Admin: 08/14/17 03:22 Dose: 75 mls/hr Piperacillin Sod/Tazobactam (Sod 3.375 gm/ Sodium Chloride) 100 mls @ 200 mls/ hr IVPB Q6H [facility] Last Admin: 08/15/17 15:10 Dose: 200 mls/hr Insulin Glargine (Lantus(*)) 40 units SUBCUT Q24H [facility] Last Admin: 08/15/17 12:27 Dose: 40 units Insulin Human Lispro (Humalog*) 0 units SUBCUT Q6HR [facility] PRN Reason: Protocol Last Admin: 08/15/17 18:46 Dose: 2 unit Omeprazole (Prilosec Cap*) 20 mg PO DAILY [facility] Last Admin: 08/15/17 15:06 Dose: 20 mg Ondansetron HCl (Zofran Inj*) 4 mg IV Q3H PRN PRN Reason: NAUSEA Last Admin: 08/11/17 13:11 Dose: 4 mg Pharmacy Consult (Zosyn Per Pharmacy*) 1 note FOLLOW UP .ZOSYN PER PHARMACY [facility] Potassium Chloride (Klor-Con Liquid*) 40 meq PO DAILY ONE Stop: 08/16/17 12:41 Vital Signs - 8 hr 08/15/17 13:46 Temperature 98.9 F Pulse Rate 103 Respiratory 20 Rate Blood Pressure 159/67 (mmHg) O2 Sat by Pulse 99 Oximetry Oxygen Devices in Use Now: None Appearance: appears comfortable lying in bed Eyes: No Scleral Icterus Ears/Nose/Mouth/Throat: Clear Oropharnyx, Mucous Membranes Moist Neck: NL Appearance and Movements; NL JVP, Trachea Midline Respiratory: Symmetrical Chest Expansion and Respiratory Effort, Clear to Auscultation Cardiovascular: NL Sounds; No Murmurs; No JVD, No Edema Abdominal: NL Sounds; No Tenderness; No Distention Extremities: No Edema, No Clubbing, Cyanosis Skin: No Rash or Ulcers Neurological: - - confused to place, right arm is contracted Nutrition: Taking PO's Result Diagrams: 08/15/17 05:35 08/15/17 05:35 Microbiology and Other Data: Microbiology 08/01/17 12:56 Nasal Screen MRSA (PCR)(ROSS) - Final Nasal Mrsa Not Detected Assess/Plan/Problems-Billing Assessment: 62 yo M h/o CVA with rightsided hemiparesis, dementia p/w cellulitis c/b sepsis - Patient Problems (1) Cellulitis Current Visit: Yes Status: Acute Code(s): L03.90 - CELLULITIS, UNSPECIFIED SNOMED Code(s): 058503590 Comment: Zosyn treatment completed Repeat CBC (2) CVA (cerebral vascular accident) Current Visit: Yes Status: Acute Code(s): I63.9 - CEREBRAL INFARCTION, UNSPECIFIED SNOMED Code(s): 166994134 Comment: Old CVA with R hemiparesis. Dr. Wetzel spoke to his nurse at the [facility]. He was ambulatory and oriented as of 1 week ago, up to his admission to [facility] 07/21/17. Daniel lift - will need DION (3) GI bleed Current Visit: Yes Status: Acute Code(s): K92.2 - GASTROINTESTINAL HEMORRHAGE, UNSPECIFIED SNOMED Code(s): 10703794 Comment: heparin held repeat CBC in AM stopped protonix IV started protonix po (4) Hypokalemia Current Visit: Yes Status: Acute Code(s): E87.6 - HYPOKALEMIA SNOMED Code( s): 06245029 Comment: Maintenance IV fluids with KCL. Will given 40 meq additional today for K of 3.2 (5) Seborrhea Current Visit: Yes Status: Acute Code(s): L21.9 - SEBORRHEIC DERMATITIS, UNSPECIFIED SNOMED Code(s): 87377194 Comment: topical clotrimazole to face (6) DVT prophylaxis Current Visit: Yes Status: Acute Code(s): ZEK8015 - SNOMED Code(s): 136664041 Comment: HSQ- Hold patient with large dark tarry BM- occult positive Status and Disposition: inpatient- will need short term rehab at discharge
--- NOTE | 2017-08-15 22:45 | PN ---
Progress Note - Progress Note Date of Service: 08/15/17 Note: Paged for patient slipping out of bed - witnessed by aid. DId not hit his head. No injuries. Denies pain. Exam at baseline. no further intervention. safety monitor ordered
[2017-08-16] MEDS: D5W 1/2 NS KCl 20 Meq 1000 ML* 1,000 ML IV SCH ×2 (03:30→18:15)
[2017-08-16] MEDS: Insulin LISPRO* 1 UNITS UNIT SUBCUT SCH ×3 (05:44→18:23)
[2017-08-16 06:19] LABS: ABS Basophils 0.1 10^3/ul (0-0.2); ABS Eosinophils 0.2 10^3/ul (0-0.6); ABS Monocytes 0.7 10^3/ul (0-0.8); ABS Neutrophils 4.3 10^3/ul (1.5-7.7); ABS Nucleated RBC 0.1 10^3/ul; Eosinophil % 3.8 % (0-6); Hematocrit 24 % (42-52); Hemoglobin 8.1 g/dl (14.0-18.0); Lymphocyte % 16.4 % (25-47); Mean Corpuscular HGB Conc 33 g/dl (31-36); Mean Corpuscular Hemoglobin 28 pg (27-31); Mean Corpuscular Volume 83 fL (80-94); Mean Platelet Volume 7 um3 (7.4-10.4); Nucleated Red Blood Cells % 1.2; Platelet Count 215 10^3/ul (150-450); Red Blood Count 2.94 10^6/ul (4.0-5.4); Red Cell Distribution Width 17 % (10.5-15); White Blood Count 6.4 10^3/ul (3.5-10.8)
[2017-08-16 06:32] LABS: EGFR Non-African American 201.2 (>60)
[2017-08-16] MEDS: Omeprazole CAP* 20 MG PO SCH (08:40)
[2017-08-16] MEDS: Clotrimazole 1% CREAM* 30 GM TOPICAL SCH ×2 (08:40→21:34)
[2017-08-16] MEDS: Insulin GLARGINE(*) 1 UNITS UNIT SUBCUT SCH (12:38)
[2017-08-16] MEDS ORDERED: Potassium Chloride LIQUID* 20 MEQ PACKET PO ONE (12:40)
--- NOTE | 2017-08-16 14:19 | PN ---
Subjective Date of Service: 08/16/17 Interval History: Patient seen and examined at bedside. Denies fever, chills, shortness of breath , chest discomfort, N/V/D. Pt states that he is feeling well. Family History: Unchanged from Admission Social History: Unchanged from Admission Past Medical History: Unchanged from Admission Objective Active Medications: Albuterol/Ipratropium (Duoneb (Albuterol 2.5 Mg/Ipratropium 0.5 Mg)) 1 neb INH Q4H PRN Reason: SOB/WHEEZING Clotrimazole (Clotrimazole 1%*) 1 applic TOPICAL BID [facility] Dextrose (D50w Syringe 50 Ml*) 12.5 gm IV PUSH .FOR FS < 60 - SS PRN Reason: FS < 60 Hydralazine HCl (Apresoline Iv*) 5 mg IV SLOW PU Q6H PRN Reason: SBP>170 Potassium Chloride/Dextrose (D5w 1/2 Ns Kcl 20 Meq 1000 Ml*) 1,000 mls @ 75 mls /hr IV PER RATE [facility] Insulin Glargine (Lantus(*)) 40 units SUBCUT Q24H [facility] Insulin Human Lispro (Humalog*) 0 units SUBCUT Q6HR [facility] Omeprazole (Prilosec Cap*) 20 mg PO DAILY [facility] Ondansetron HCl (Zofran Inj*) 4 mg IV Q3H PRN Reason: NAUSEA Vital Signs - 8 hr 08/16/17 08/16/17 08/16/17 07:12 08:00 11:07 Temperature 99.5 F Pulse Rate 104 101 Respiratory 18 18 15 Rate Blood Pressure 117/70 151/64 (mmHg) O2 Sat by Pulse 99 98 Oximetry Oxygen Devices in Use Now: None Appearance: NAD, laying in bed Ears/Nose/Mouth/Throat: Mucous Membranes Moist Respiratory: Symmetrical Chest Expansion and Respiratory Effort, Clear to Auscultation Cardiovascular: NL Sounds; No Murmurs; No JVD, RRR Abdominal: NL Sounds; No Tenderness; No Distention Extremities: No Edema Skin: No Rash or Ulcers Neurological: - - Alert and Oriented to Person, right sided weakness, speech is garbled at times Lines/Tubes/Other Access: Clean, Dry and Intact Peripheral IV - site benign Nutrition: Taking PO's Result Diagrams: 08/16/17 06:04 08/16/17 06:04 Microbiology and Other Data: Microbiology 08/01/17 12:56 Nasal Screen MRSA (PCR)(ROSS) - Final Nasal Mrsa Not Detected Assess/Plan/Problems-Billing Assessment: Mr. Petit is a 62 yo M with h/o CVA with rightsided hemiparesis, dementia, CAD , DM, COPD, and GERD p/w cellulitis c/b sepsis. - Patient Problems (1) GI bleed Code(s): K92.2 - GASTROINTESTINAL HEMORRHAGE, UNSPECIFIED SNOMED Code(s): 24700241 Comment: - HH continues to drop - Repeat HH in AM - GI consult pending - Continue omeprazole (2) Altered mental status Code(s): R41.82 - ALTERED MENTAL STATUS, UNSPECIFIED SNOMED Code(s): 981585719 Comment: - Improving - Suspect metabolic/hepatic encephalopathy/delirium - Neurology consult, input appreciated - Maintenance IV fluids with KCL - Resume Rifaximin - Supportive care (3) Cellulitis Code(s): L03.90 - CELLULITIS, UNSPECIFIED SNOMED Code(s): 753452976 Comment: - Resolved - Completed course of Zosyn (4) CVA (cerebral vascular accident) Code(s): I63.9 - CEREBRAL INFARCTION, UNSPECIFIED SNOMED Code(s): 810081135 Comment: - Old CVA with R hemiparesis - Per the [facility], he was ambulatory and oriented up to his admission to [facility] 07/21/17. - Daniel lift - will need DION (5) Hypokalemia Code(s): E87.6 - HYPOKALEMIA SNOMED Code(s): 34968185 Comment: - Resolved - Maintenance IV fluids with KCL (6) Seborrhea Code(s): L21.9 - SEBORRHEIC DERMATITIS, UNSPECIFIED SNOMED Code(s): 72904280 Comment: - Continue topical clotrimazole to face (7) COPD (chronic obstructive pulmonary disease) Code(s): J44.9 - CHRONIC OBSTRUCTIVE PULMONARY DISEASE, UNSPECIFIED SNOMED Code(s): 71843630 Comment: - No signs of exacerbation - Resume dulera (8) HTN (hypertension) Code(s): I10 - ESSENTIAL (PRIMARY) HYPERTENSION SNOMED Code(s): 23352536 Comment: - Hypertensive, SBP 150-170's - Resume home metoprolol - Continue to hold lisinopril for now (9) CAD (coronary artery disease) Code(s): I25.10 - ATHSCL HEART DISEASE OF [place] CORONARY ARTERY W/O ANG PCTRS SNOMED Code(s): 36228700 Comment: - Asymptomatic - Resume metoprolol and atorvastatin - Hold ASA and plavix in the setting of a possible GI bleed - Continue to hold Isosorbide (10) Diabetes Code(s): E11.9 - TYPE 2 DIABETES MELLITUS WITHOUT COMPLICATIONS SNOMED Code(s) : 91323650 Comment: - Glucose 120-180's - Continue Lantus and Lispro SS - Hold Januvia and metformin (11) DVT prophylaxis Code(s): OLQ5652 - SNOMED Code(s): 863533852 Comment: - Hold chemical DVT prophylasis in setting of possible GI bleed - SCDs (12) Full code status Code(s): Z78.9 - OTHER SPECIFIED HEALTH STATUS SNOMED Code(s): 863282706 Status and Disposition: Inpatient. Will need short term rehab at discharge
[2017-08-16] MEDS: Mometasone/Formoter 100/5 MDI INH SCH (20:15)
[2017-08-16] MEDS ORDERED: Metoprolol Tartrate TAB* 25 MG PO SCH (21:00)
[2017-08-16] MEDS: RiFAXimin* 550 MG TAB PO SCH (21:33)
[2017-08-16] MEDS: Metoprolol Tartrate TAB* 25 MG PO SCH (21:33)
[2017-08-16] MEDS: Atorvastatin* 40 MG TAB PO SCH (21:33)
[2017-08-17] MEDS: Insulin LISPRO* 1 UNITS UNIT SUBCUT SCH ×4 (00:22→18:09)
--- NOTE | 2017-08-17 00:35 | CONS ---
GASTROENTEROLOGY CONSULTATION REPORT: DATE OF CONSULT: 08/16/17 REASON FOR CONSULTATION: Anemia, melena. HOSPITAL PROVIDER: Ros Jacobson NP HISTORY OF PRESENT ILLNESS: The patient is a pleasant 62-year-old male with a previous history of CVA, coronary artery disease with stent placements, on Plavix as an outpatient, who presented with altered mental status and unresponsiveness. The patient was intubated and transferred to the ICU for neurological care. Neurological workup was negative for an acute CVA. MRI of the brain could not be done thus emboli could not be ruled out. He was also noted to have cellulitis for which he has been started on antibiotics. Throughout his hospital course, the patient's mental status has improved over the last 2 weeks. Gastroenterology was consulted today for progressive anemia. His hemoglobin today is at 8.1 and his baseline is 10. His Plavix has been on hold since the patient's anemia. There is a questionable history of melena. Therefore, we were asked to perform an upper endoscopy tomorrow. The patient states that he has had a distant history of an upper endoscopy and colonoscopy, but cannot remember the results. He currently denies abdominal pain, nausea, vomiting, hematemesis, melena, hematochezia. He admits to a good appetite, denies dysphagia as well. His weight has been relatively stable. HOSPITAL MEDICATIONS: 1. Albuterol. 2. Lipitor. 3. Hydralazine. 4. Insulin. 5. Lopressor. 6. Dulera. 7. Prilosec. 8. Zofran. 9. Ditropan. 10. Paxil. 11. Xifaxan. ALLERGIES: No known drug allergies. SOCIAL HISTORY: He is unable to recall. REVIEW OF SYSTEMS: Review of systems on a 14-point scale has been reviewed. All pertinent positives and negatives have been noted above in the HPI but majority history is unknown at this time due to patient's slightly altered mental status. He is unable to recall. PHYSICAL EXAM: Vital Signs: Temperature 98.3, pulse 92, respirations 18, is 96 % on room air, blood pressure 150/73. Generally, the patient is answering questions appropriately, but slow to respond, in no acute distress. HEENT: Normo-cephalic, atraumatic. Moist mucous membranes. Cardiovascular Exam: Regular rate and rhythm. Pulmonary Exam: Clear to auscultation bilaterally. Abdominal Exam: Soft, nontender, nondistended. No rebound, guarding or rigidity. No hepatosplenomegaly. Extremities: There is a right wound consistent with cellulitis. There is some mild edema in both extremities. They are warm to touch. Pulses are intact bilaterally. DIAGNOSTIC STUDIES/LAB DATA: WBC is 6.4, hemoglobin 8.1, hematocrit 24, platelets 215. Sodium 132, potassium 3.5, chloride 106, CO2 19, anion gap 7, BUN 7, creatinine 0.43, glucose 120. ASSESSMENT AND PLAN: Mr. Petit is a 62-year-old gentleman who presented to [facility] as a transfer from [facility] for unresponsiveness and altered mental status. He was admitted to the intensive care unit for further evaluation and treatment. He was intubated and subsequently extubated and was treated for encephalopathy over the last 2 weeks of hospital course. The patient has improved with his mental status. He has been placed on antibiotics for right lower extremity cellulitis. Gastroenterology was consulted today for progressive anemia and a questionable history of melena. He is on Plavix and Aspirin as an outpatient for his history of cerebrovascular accident and coronary artery disease with previous stent placements. We will plan for an upper endoscopy tomorrow morning for further evaluation of the patient's anemia. His hemoglobin is currently stable at 8.1. It appears that his baseline is around 10. His Plavix and Aspirin have been on hold for the past several days in anticipation for an upper endoscopy. He is currently on PPI therapy daily. Further recommendations will be provided after upper endoscopy is performed tomorrow. Thank you, Ros Nelson, for allowing us to participate in the care of your patient. If you should have any further questions or concerns, please do not hesitate to contact us. [id number]/[facility] #: [id number] EVELYN
[2017-08-17 06:32] LABS: ABS Basophils 0.1 10^3/ul (0-0.2); ABS Eosinophils 0.3 10^3/ul (0-0.6); ABS Lymphocytes 1.1 10^3/ul (1.0-4.8); ABS Monocytes 0.9 10^3/ul (0-0.8); ABS Neutrophils 5.5 10^3/ul (1.5-7.7); ABS Nucleated RBC 0 10^3/ul; Eosinophil % 3.8 % (0-6); Hematocrit 28 % (42-52); Hemoglobin 9.5 g/dl (14.0-18.0); Lymphocyte % 14.6 % (25-47); Mean Corpuscular HGB Conc 34 g/dl (31-36); Mean Corpuscular Hemoglobin 28 pg (27-31); Mean Corpuscular Volume 82 fL (80-94); Mean Platelet Volume 7 um3 (7.4-10.4); Nucleated Red Blood Cells % 0.1; Platelet Count 227 10^3/ul (150-450); Red Cell Distribution Width 17 % (10.5-15); White Blood Count 7.9 10^3/ul (3.5-10.8)
[2017-08-17] MEDS: hydrALAZINE IV* 20 MG/ML VIAL IV SLOW PU PRN (06:36)
[2017-08-17] MEDS: Mometasone/Formoter 100/5 MDI INH SCH ×2 (08:04→20:53)
[2017-08-17] MEDS: RiFAXimin* 550 MG TAB PO SCH ×2 (09:02→20:01)
[2017-08-17] MEDS: Omeprazole CAP* 20 MG PO SCH (09:02)
[2017-08-17] MEDS: Metoprolol Tartrate TAB* 25 MG PO SCH ×2 (09:02→20:00)
[2017-08-17] MEDS: Clotrimazole 1% CREAM* 30 GM TOPICAL SCH ×2 (09:02→20:01)
[2017-08-17] MEDS: Oxybutynin XL TAB* 5 MG PO SCH (09:02)
[2017-08-17] MEDS: PARoxetine HCL TAB* 20 MG PO SCH (09:02)
[2017-08-17] MEDS: D5W 1/2 NS KCl 20 Meq 1000 ML* 1,000 ML IV SCH (10:59)
--- NOTE | 2017-08-17 11:28 | PN ---
Subjective Date of Service: 08/17/17 Interval History: Patient seen and examined at bedside. Denies fever, chills, shortness of breath , chest discomfort, N/V/D. Pt is asking when he can eat. Pt's speech is improved today. Family History: Unchanged from Admission Social History: Unchanged from Admission Past Medical History: Unchanged from Admission Objective Active Medications: Albuterol/Ipratropium (Duoneb (Albuterol 2.5 Mg/Ipratropium 0.5 Mg)) 1 neb INH Q4H PRN Reason: SOB/WHEEZING Atorvastatin Calcium (Lipitor*) 40 mg PO BEDTIME KULDEEP Clotrimazole (Clotrimazole 1%*) 1 applic TOPICAL BID KULDEEP Dextrose (D50w Syringe 50 Ml*) 12.5 gm IV PUSH .FOR FS < 60 - SS PRN Reason: FS < 60 Hydralazine HCl (Apresoline Iv*) 5 mg IV SLOW PU Q6H PRN Reason: SBP>170 Potassium Chloride/Dextrose (D5w 1/2 Ns Kcl 20 Meq 1000 Ml*) 1,000 mls @ 75 mls /hr IV PER RATE [facility] Insulin Glargine (Lantus(*)) 40 units SUBCUT Q24H KULDEEP Insulin Human Lispro (Humalog*) 0 units SUBCUT Q6HR KULDEEP Metoprolol Tartrate (Lopressor Tab*) 25 mg PO BID KULDEEP Mometasone Furoate/Formoterol Fumar (Dulera 100/5 Mdi*) 2 puff INH BID KULDEEP Omeprazole (Prilosec Cap*) 20 mg PO DAILY KULDEEP Ondansetron HCl (Zofran Inj*) 4 mg IV Q3H PRN Reason: NAUSEA Oxybutynin Chloride (Ditropan Xl Tab*) 15 mg PO QAM KULDEEP Paroxetine HCl (Paxil Tab*) 40 mg PO QAM KULDEEP Rifaximin (Xifaxan*) 550 mg PO BID [facility] Vital Signs - 8 hr 08/17/17 08/17/17 08/17/17 03:34 05:56 06:14 Pulse Rate 86 81 Respiratory 17 Rate Blood Pressure 139/61 171/78 (mmHg) O2 Sat by Pulse 96 98 Oximetry 08/17/17 08:00 Pulse Rate Respiratory 18 Rate Blood Pressure (mmHg) O2 Sat by Pulse Oximetry Oxygen Devices in Use Now: None Appearance: NAD, sitting up in bed Ears/Nose/Mouth/Throat: Mucous Membranes Moist Neck: NL Appearance and Movements; NL JVP Respiratory: Symmetrical Chest Expansion and Respiratory Effort, Clear to Auscultation Cardiovascular: NL Sounds; No Murmurs; No JVD, RRR Abdominal: NL Sounds; No Tenderness; No Distention Extremities: No Edema Skin: - - Healing wound to left posterior heel, no signs of infection. Diabetic foot ulcer to right lateral side of foot ~ 1 cm x 1 cm, no signs of infection Neurological: - - Alert and Oriented to Person. Right sided Nutrition: Taking PO's Result Diagrams: 08/17/17 06:15 08/16/17 06:04 Microbiology and Other Data: Microbiology 08/01/17 12:56 Nasal Screen MRSA (PCR)(ROSS) - Final Nasal Mrsa Not Detected Assess/Plan/Problems-Billing Assessment: Mr. Petit is a 62 yo M with h/o CVA with rightsided hemiparesis, dementia, CAD , DM, COPD, and GERD p/w cellulitis c/b sepsis. - Patient Problems (1) GI bleed Code(s): K92.2 - GASTROINTESTINAL HEMORRHAGE, UNSPECIFIED SNOMED Code(s): 42016611 Comment: - HH improved today - Repeat HH in AM - GI consult, plan for EGD today. Input appreciated - Continue omeprazole (2) Altered mental status Code(s): R41.82 - ALTERED MENTAL STATUS, UNSPECIFIED SNOMED Code(s): 129195612 Comment: - Improving - Suspect metabolic/hepatic encephalopathy/delirium - Neurology consult, input appreciated - Maintenance IV fluids with KCL - Continue Rifaximin - Supportive care (3) Cellulitis Code(s): L03.90 - CELLULITIS, UNSPECIFIED SNOMED Code(s): 044680167 Comment: - Resolved - Completed course of Zosyn (4) CVA (cerebral vascular accident) Code(s): I63.9 - CEREBRAL INFARCTION, UNSPECIFIED SNOMED Code(s): 394538291 Comment: - Old CVA with R hemiparesis - Per the [facility], he was ambulatory and oriented up to his admission to [facility] 07/21/17. - Daniel lift - will need DION (5) Hypokalemia Code(s): E87.6 - HYPOKALEMIA SNOMED Code(s): 91796798 Comment: - Resolved - Maintenance IV fluids with KCL (6) Seborrhea Code(s): L21.9 - SEBORRHEIC DERMATITIS, UNSPECIFIED SNOMED Code(s): 05010108 Comment: - Continue topical clotrimazole to face (7) COPD (chronic obstructive pulmonary disease) Code(s): J44.9 - CHRONIC OBSTRUCTIVE PULMONARY DISEASE, UNSPECIFIED SNOMED Code(s): 86041913 Comment: - No signs of exacerbation - Continue dulera (8) HTN (hypertension) Code(s): I10 - ESSENTIAL (PRIMARY) HYPERTENSION SNOMED Code(s): 49185502 Comment: - Hypertensive, SBP 130-170's - Continue home metoprolol and resume lisinopril (9) CAD (coronary artery disease) Code(s): I25.10 - ATHSCL HEART DISEASE OF [place] CORONARY ARTERY W/O ANG PCTRS SNOMED Code(s): 75461238 Comment: - Asymptomatic - Continue metoprolol and atorvastatin. Resume Isosorbide - Hold ASA and plavix in the setting of a possible GI bleed (10) Diabetes Code(s): E11.9 - TYPE 2 DIABETES MELLITUS WITHOUT COMPLICATIONS SNOMED Code(s) : 87608999 Comment: - Glucose 120-180's - Continue Lantus and Lispro SS - Hold Januvia and metformin (11) DVT prophylaxis Code(s): BDN3748 - SNOMED Code(s): 958461104 Comment: - Hold chemical DVT prophylasis in setting of possible GI bleed - SCDs (12) Full code status Code(s): Z78.9 - OTHER SPECIFIED HEALTH STATUS SNOMED Code(s): 942884460 Status and Disposition: Inpatient. Will need short term rehab at discharge
[2017-08-17] MEDS: Insulin GLARGINE(*) 1 UNITS UNIT SUBCUT SCH ×2 (13:02→20:00)
[2017-08-17] MEDS ORDERED: Midazolam* 1 MG/ML 10 ML VIAL (10 MG) ONE (14:46)
[2017-08-17] MEDS ORDERED: fentaNYL* 50 MCG/ML 2 ML VIAL (100 MCG VIAL) ONE (14:47)
[2017-08-17] MEDS: Atorvastatin* 40 MG TAB PO SCH (20:00)
[2017-08-17] MEDS: Pantoprazole IV* 40 MG IV SCH (20:01)
[2017-08-18] MEDS: Insulin LISPRO* 1 UNITS UNIT SUBCUT SCH ×4 (00:45→18:07)
[2017-08-18] MEDS: D5W 1/2 NS KCl 20 Meq 1000 ML* 1,000 ML IV SCH (03:41)
[2017-08-18 06:03] LABS: Hematocrit 26 % (42-52)
[2017-08-18 06:23] LABS: EGFR Non-African American 186.1 (>60)
[2017-08-18] MEDS: Oxybutynin XL TAB* 5 MG PO SCH (08:18)
[2017-08-18] MEDS: Clotrimazole 1% CREAM* 30 GM TOPICAL SCH ×2 (08:18→21:17)
[2017-08-18] MEDS: RiFAXimin* 550 MG TAB PO SCH ×2 (08:18→21:17)
[2017-08-18] MEDS: Pantoprazole IV* 40 MG IV SCH ×2 (08:18→21:07)
[2017-08-18] MEDS: Metoprolol Tartrate TAB* 25 MG PO SCH ×2 (08:19→21:04)
[2017-08-18] MEDS: PARoxetine HCL TAB* 20 MG PO SCH (08:19)
[2017-08-18] MEDS: Lisinopril TAB* 10 MG PO SCH (08:19)
[2017-08-18] MEDS: Mometasone/Formoter 100/5 MDI INH SCH ×2 (08:39→20:37)
[2017-08-18] MEDS ORDERED: Isosorbide Mononitrate ER TAB* 30 MG PO SCH (09:00)
--- NOTE | 2017-08-18 11:02 | PN ---
Subjective Date of Service: 08/18/17 Interval History: Patient seen and examined at bedside. Reportedly mildly combative and non-cooperative with nursing staff this AM, now somewhat improved. Mr. Petit states, "I'm tired" when asked how he is feeling. He states, "No," when asked about pain, difficulty breathing, abd pain, n/v, leg pain. Minimally conversive but cooperates with exam. Family History: Unchanged from Admission Social History: Unchanged from Admission Past Medical History: Unchanged from Admission Objective Active Medications: Albuterol/Ipratropium (Duoneb (Albuterol 2.5 Mg/Ipratropium 0.5 Mg)) 1 neb INH Q4H PRN PRN Reason: SOB/WHEEZING Atorvastatin Calcium (Lipitor*) 40 mg PO BEDTIME [facility] Last Admin: 08/17/17 20:00 Dose: 40 mg Clotrimazole (Clotrimazole 1%*) 1 applic TOPICAL BID [facility] Last Admin: 08/18/17 08:18 Dose: 1 applic Dextrose (D50w Syringe 50 Ml*) 12.5 gm IV PUSH .FOR FS < 60 - SS PRN PRN Reason: FS < 60 Hydralazine HCl (Apresoline Iv*) 5 mg IV SLOW PU Q6H PRN PRN Reason: SBP>170 Last Admin: 08/17/17 06:36 Dose: 5 mg Potassium Chloride/Dextrose (D5w 1/2 Ns Kcl 20 Meq 1000 Ml*) 1,000 mls @ 75 mls /hr IV PER RATE [facility] Last Admin: 08/18/17 03:41 Dose: 75 mls/hr Insulin Glargine (Lantus(*)) 40 units SUBCUT Q24H [facility] Last Admin: 08/17/17 20:00 Dose: 40 units Insulin Human Lispro (Humalog*) 0 units SUBCUT Q6HR [facility] PRN Reason: Protocol Last Admin: 08/18/17 06:09 Dose: 2 unit Isosorbide Mononitrate (Imdur Er Tab*) 30 mg PO QAM [facility] Last Admin: 08/18/17 08:18 Dose: 30 mg Lisinopril (Prinivil Tab*) 40 mg PO QAM [facility] Last Admin: 08/18/17 08:19 Dose: 40 mg Metoprolol Tartrate (Lopressor Tab*) 25 mg PO BID [facility] Last Admin: 08/18/17 08:19 Dose: 25 mg Mometasone Furoate/Formoterol Fumar (Dulera 100/5 Mdi*) 2 puff INH BID [facility] Last Admin: 08/18/17 08:39 Dose: 2 puff Ondansetron HCl (Zofran Inj*) 4 mg IV Q3H PRN PRN Reason: NAUSEA Last Admin: 08/11/17 13:11 Dose: 4 mg Oxybutynin Chloride (Ditropan Xl Tab*) 15 mg PO QAM [facility] Last Admin: 08/18/17 08:18 Dose: 15 mg Pantoprazole Sodium (Protonix Iv*) 40 mg IV BID [facility] Last Admin: 08/18/17 08:18 Dose: 40 mg Paroxetine HCl (Paxil Tab*) 40 mg PO QAM [facility] Last Admin: 08/18/17 08:19 Dose: 40 mg Rifaximin (Xifaxan*) 550 mg PO BID [facility] Last Admin: 08/18/17 08:18 Dose: 550 mg Vital Signs - 8 hr 08/18/17 08/18/17 08/18/17 03:31 07:25 07:30 Temperature 97.9 F 97.5 F Pulse Rate 87 103 Respiratory 18 17 17 Rate Blood Pressure 138/65 150/80 (mmHg) O2 Sat by Pulse 96 100 Oximetry 08/18/17 08:44 Temperature Pulse Rate 75 Respiratory 16 Rate Blood Pressure (mmHg) O2 Sat by Pulse 99 Oximetry Oxygen Devices in Use Now: None Appearance: Male patient, lying in bed, eyes closed, minimally interactive but in NAD Eyes: No Scleral Icterus Ears/Nose/Mouth/Throat: Clear Oropharnyx, Mucous Membranes Moist Neck: NL Appearance and Movements; NL JVP Respiratory: Symmetrical Chest Expansion and Respiratory Effort, Clear to Auscultation Cardiovascular: NL Sounds; No Murmurs; No JVD, RRR, No Edema Abdominal: NL Sounds; No Tenderness; No Distention Extremities: No Clubbing, Cyanosis Skin: - - Healing wound to left posterior heel, no signs of infection. Diabetic foot ulcer to right lateral side of foot ~ 1 cm x 1 cm, no signs of infection Neurological: - - Alert, oriented to self/place Lines/Tubes/Other Access: Clean, Dry and Intact Peripheral IV Nutrition: Taking PO's Result Diagrams: 08/18/17 05:32 08/18/17 05:32 Microbiology and Other Data: Microbiology 08/01/17 12:56 Nasal Screen MRSA (PCR)(ROSS) - Final Nasal Mrsa Not Detected Assess/Plan/Problems-Billing Assessment: Mr. Petit is a 62 yo M with h/o CVA with right-sided hemiparesis, dementia, CAD , DM, COPD, and GERD p/w cellulitis c/b sepsis. - Patient Problems (1) GI bleed Code(s): K92.2 - GASTROINTESTINAL HEMORRHAGE, UNSPECIFIED Comment: - HH stable - S/p EGD - Continue BID pantoprazole - Continue to follow HH and monitor for bleeding (2) Altered mental status Code(s): R41.82 - ALTERED MENTAL STATUS, UNSPECIFIED Comment: - Improving - Suspect metabolic/hepatic encephalopathy/delirium - Neurology consult, input appreciated - Continue Rifaximin - Supportive care (3) Cellulitis Code(s): L03.90 - CELLULITIS, UNSPECIFIED Comment: - Resolved - Completed course of Zosyn (4) CVA (cerebral vascular accident) Code(s): I63.9 - CEREBRAL INFARCTION, UNSPECIFIED Comment: - Old CVA with R hemiparesis - Per the [facility], he was ambulatory and oriented up to his admission to [facility] 07/21/17. - Daniel lift - will need DION (5) Hypokalemia Code(s): E87.6 - HYPOKALEMIA Comment: - Resolved - Patient pulling at lines; IVF discontinued, start PO repletion. (6) Seborrhea Code(s): L21.9 - SEBORRHEIC DERMATITIS, UNSPECIFIED Comment: - Continue topical clotrimazole to face (7) COPD (chronic obstructive pulmonary disease) Code(s): J44.9 - CHRONIC OBSTRUCTIVE PULMONARY DISEASE, UNSPECIFIED Comment: - No signs of exacerbation - Continue dulera (8) HTN (hypertension) Code(s): I10 - ESSENTIAL (PRIMARY) HYPERTENSION Comment: - BPs normo to hypertensive - Continue home metoprolol and lisinopril and will hold if SBP<100 (9) CAD (coronary artery disease) Code(s): I25.10 - ATHSCL HEART DISEASE OF [place] CORONARY ARTERY W/O ANG PCTRS Comment: - Asymptomatic - Continue metoprolol and atorvastatin. Resume Isosorbide - Hold ASA and plavix in the setting of a possible GI bleed (10) Diabetes Code(s): E11.9 - TYPE 2 DIABETES MELLITUS WITHOUT COMPLICATIONS Comment: - Glucose 120-200's - Continue Lantus and Lispro SS - Hold Januvia and metformin (11) DVT prophylaxis Comment: - Hold chemical DVT prophylaxis in setting of possible GI bleed - SCDs (12) Full code status Code(s): Z78.9 - OTHER SPECIFIED HEALTH STATUS Status and Disposition: Inpatient. Will need short term rehab at discharge
--- NOTE | 2017-08-18 15:17 | PRO ---
CC: Bryan Freedman GASTROENTEROLOGY PROCEDURE NOTE: DATE OF PROCEDURE: 08/17/17 REFERRING PHYSICIAN: Bryan Freedman. PROCEDURE: EGD. PREOPERATIVE DIAGNOSIS: A 62-year-old male who was admitted to the hospital on 08/01/17, from [facility] with change in mental status. Patient did require intensive care unit admission. Gastr oenterology was asked to see the patient yesterday for significant anemia with hematocrit in the rang e of 28. Patient does have a history of CVA and coronary artery disease with stent placement. He was on Plavix as well as aspirin. He also is admitted with cellulitis. His Plavix has been on hold. P atient denies any other GI symptoms. POSTOPERATIVE DIAGNOSES: 1. Diffuse ulcerative esophagitis of the esophagus from 30 to 40 cm from the incisors. No stigmata of recent bleeding and no active bleeding noted. Photographs obtained. 2. Mild gastritis throughout the stomach with no erosion or ulceration. 3. Two superficial erosions with overlying exudate in the duodenal bulb with no stigmata of recent b leeding; otherwise, normal small bowel. PROCEDURE MEDICATIONS: Versed 1.5 mg IV. INSTRUMENT: [id number]-190 Olympus high-definition gastroscope. DESCRIPTION OF PROCEDURE: Informed consent was obtained prior to performing this procedure. The ins trument was introduced into the mouth and passed the cervical esophagus under direct visualization. The instrument was then advanced down the esophagus. The esophagus was extensively ulcerated from 30 to 40 cm from the incisors. No stigmata of recent bleeding was noted. No active bleeding is seen. No old blood is present. Photographs were obtained. The scope was then passed through the gastric c ardia, fundus, body, and antrum. There was mild gastritis throughout the stomach without erosion or ulceration. No old blood is noted. The scope was then passed through the pylorus and duodenal bulb and descending duodenum. There were two superficial erosions within the bulb with overlying exudate. No stigmata of recent bleeding. Remainder of the duodenum was normal. The instrument was withdrawn from the patient. The patient tolerated the procedure well and there were no complications. RECOMMENDATIONS: Consent was obtained from the patient's son, Jim Murphy on the phone prior to this procedure. I will began the patient on Protonix 40 mg IV b.i.d. He should be when discharged, discharged on 40 mg p.o. omeprazole b.i.d. for probably 6 months or so. I think he can probably isaak ew, begin his Plavix and aspirin on Sunday. [id number]/[facility] #: [id number]
[2017-08-18] MEDS: Insulin GLARGINE(*) 1 UNITS UNIT SUBCUT SCH (21:03)
[2017-08-18] MEDS: Potassium Chlor TAB* 20 MEQ TAB.ER PO SCH (21:04)
[2017-08-18] MEDS: Atorvastatin* 40 MG TAB PO SCH (21:04)
[2017-08-19 05:47] LABS: Hematocrit 25 % (42-52); Hemoglobin 8.5 g/dl (14.0-18.0)
[2017-08-19] MEDS: Mometasone/Formoter 100/5 MDI INH SCH ×2 (08:27→22:48)
[2017-08-19] MEDS: Isosorbide Mononitrate ER TAB* 30 MG PO SCH (09:14)
[2017-08-19] MEDS: PARoxetine HCL TAB* 20 MG PO SCH (09:14)
[2017-08-19] MEDS: Oxybutynin XL TAB* 5 MG PO SCH (09:14)
[2017-08-19] MEDS: Potassium Chlor TAB* 20 MEQ TAB.ER PO SCH ×2 (09:14→21:45)
[2017-08-19] MEDS: Metoprolol Tartrate TAB* 25 MG PO SCH ×2 (09:14→21:46)
[2017-08-19] MEDS: Lisinopril TAB* 10 MG PO SCH (09:14)
[2017-08-19] MEDS: RiFAXimin* 550 MG TAB PO SCH ×2 (09:14→21:45)
[2017-08-19] MEDS: Pantoprazole IV* 40 MG IV SCH ×2 (09:15→21:48)
[2017-08-19] MEDS: Insulin LISPRO* 1 UNITS UNIT SUBCUT SCH ×3 (09:15→17:32)
[2017-08-19] MEDS: Ondansetron INJ* 2 MG/ML VIAL IV PRN (09:25)
[2017-08-19] MEDS: Clotrimazole 1% CREAM* 30 GM TOPICAL SCH ×2 (09:57→21:47)
--- NOTE | 2017-08-19 10:35 | PN ---
Subjective Date of Service: 08/19/17 Interval History: Mr. Petit denies any complaint today. He is confused and tangential in conversation. Family History: Unchanged from Admission Social History: Unchanged from Admission Past Medical History: Unchanged from Admission Objective Active Medications: Albuterol/Ipratropium (Duoneb (Albuterol 2.5 Mg/Ipratropium 0.5 Mg)) 1 neb INH Q4H PRN Atorvastatin Calcium (Lipitor*) 40 mg PO BEDTIME KULDEEP Clotrimazole (Clotrimazole 1%*) 1 applic TOPICAL BID KULDEEP Dextrose (D50w Syringe 50 Ml*) 12.5 gm IV PUSH .FOR FS < 60 - SS PRN Hydralazine HCl (Apresoline Iv*) 5 mg IV SLOW PU Q6H PRN Insulin Glargine (Lantus(*)) 40 units SUBCUT Q24H [facility]UL[facility]EP Insulin Human Lispro (Humalog*) 0 units SUBCUT AC KULDEEP Isosorbide Mononitrate (Imdur Er Tab*) 30 mg PO QAM KULDEEP Lisinopril (Prinivil Tab*) 40 mg PO QAM KULDEEP Metoprolol Tartrate (Lopressor Tab*) 25 mg PO BID KULDEEP Mometasone Furoate/Formoterol Fumar (Dulera 100/5 Mdi*) 2 puff INH BID KULDEEP Ondansetron HCl (Zofran Inj*) 4 mg IV Q3H PRN Oxybutynin Chloride (Ditropan Xl Tab*) 15 mg PO QAM KULDEEP Pantoprazole Sodium (Protonix Iv*) 40 mg IV BID KULDEEP Paroxetine HCl (Paxil Tab*) 40 mg PO QAM KUL[facility]EP Potassium Chloride (Klor Con Er Tab*) 20 meq PO BID KULDEEP Rifaximin (Xifaxan*) 550 mg PO BID KULDEEP Vital Signs: Temp Pulse Resp BP Pulse Ox 97.2 F 88 16 127/53 99 08/19/17 08:04 08/19/17 08:49 08/19/17 08:04 08/19/17 08:04 08/19/17 08:04 Oxygen Devices in Use Now: None Appearance: Male sitting up in chair in NAD Eyes: No Scleral Icterus Ears/Nose/Mouth/Throat: NL Teeth, Lips, Gums Neck: NL Appearance and Movements; NL JVP Respiratory: Symmetrical Chest Expansion and Respiratory Effort, Clear to Auscultation Cardiovascular: NL Sounds; No Murmurs; No JVD, No Edema Abdominal: NL Sounds; No Tenderness; No Distention Lymphatic: No Cervical Adenopathy Extremities: No Edema Skin: No Rash or Ulcers Neurological: NL Muscle Strength and Tone, - - Alert, oriented but confused and tangential in conversation Nutrition: Taking PO's Result Diagrams: 08/19/17 05:06 08/19/17 05:06 Microbiology and Other Data: . Assess/Plan/Problems-Billing Assessment: Mr. Petit is a 62 yo male with PMH of CVA with right-sided hemiparesis, dementia, CAD, DM, COPD, and GERD admitted with sepsis secondary to cellulitis. - Patient Problems (1) GI bleed Comment: - HH stable - S/p EGD showing diffuse ulcerative esophagitis - Continue BID pantoprazole (2) Altered mental status Comment: - Improving - Suspect metabolic/hepatic encephalopathy/delirium - Neurology consult, input appreciated - Continue Rifaximin - Supportive care (3) Cellulitis Comment: - Resolved, right foot wound. - Completed course of Zosyn. (4) COPD (chronic obstructive pulmonary disease) Comment: - No signs of exacerbation - Continue dulera (5) Diabetes Comment: - Glucose 120-200's - Continue Lantus and Lispro SS - Hold Januvia and metformin (6) HTN (hypertension) Comment: - BPs normo to hypertensive - Continue home metoprolol and lisinopril and will hold if SBP<100 (7) CAD (coronary artery disease) Comment: - Asymptomatic - Continue metoprolol and atorvastatin. Resume Isosorbide - Hold ASA and plavix in the setting of a possible GI bleed (8) CVA (cerebral vascular accident) Comment: - Old CVA with R hemiparesis - Per the [facility], he was ambulatory and oriented up to his admission to [facility] 07/21/17. - Daniel lift - will need DION (9) DVT prophylaxis Comment: - Hold chemical DVT prophylaxis in setting of possible GI bleed - SCDs (10) Full code status Comment: Status and Disposition: Inpatient. Will need short term rehab at discharge
[2017-08-19] MEDS: Insulin GLARGINE(*) 1 UNITS UNIT SUBCUT SCH (21:45)
[2017-08-19] MEDS: Atorvastatin* 40 MG TAB PO SCH (21:46)
[2017-08-20] MEDS: Insulin LISPRO* 1 UNITS UNIT SUBCUT SCH ×3 (07:59→17:34)
[2017-08-20] MEDS: Mometasone/Formoter 100/5 MDI INH SCH ×2 (08:12→20:09)
--- NOTE | 2017-08-20 09:07 | PN ---
Subjective Date of Service: 08/20/17 Interval History: Mr. Petit denies any complaint today and is hopeful for discharge soon. Family History: Unchanged from Admission Social History: Unchanged from Admission Past Medical History: Unchanged from Admission Objective Active Medications: Albuterol/Ipratropium (Duoneb (Albuterol 2.5 Mg/Ipratropium 0.5 Mg)) 1 neb INH Q4H PRN Atorvastatin Calcium (Lipitor*) 40 mg PO BEDTIME KULDEEP Clotrimazole (Clotrimazole 1%*) 1 applic TOPICAL BID KULDEEP Dextrose (D50w Syringe 50 Ml*) 12.5 gm IV PUSH .FOR FS < 60 - SS PRN Hydralazine HCl (Apresoline Iv*) 5 mg IV SLOW PU Q6H PRN Insulin Glargine (Lantus(*)) 40 units SUBCUT Q24H KULDEEP Insulin Human Lispro (Humalog*) 0 units SUBCUT AC KULDEEP Isosorbide Mononitrate (Imdur Er Tab*) 30 mg PO QAM KULDEEP Lisinopril (Prinivil Tab*) 40 mg PO QAM KULDEEP Metoprolol Tartrate (Lopressor Tab*) 25 mg PO BID KULDEEP Mometasone Furoate/Formoterol Fumar (Dulera 100/5 Mdi*) 2 puff INH BID KULDEEP Ondansetron HCl (Zofran Inj*) 4 mg IV Q3H PRN Oxybutynin Chloride (Ditropan Xl Tab*) 15 mg PO QAM KULDEEP Pantoprazole Sodium (Protonix Iv*) 40 mg IV BID KULDEEP Paroxetine HCl (Paxil Tab*) 40 mg PO QAM KULDEEP Potassium Chloride (Klor Con Er Tab*) 20 meq PO BID KULDEEP Rifaximin (Xifaxan*) 550 mg PO BID KULDEEP Vital Signs: Temp Pulse Resp BP Pulse Ox 97.6 F 62 16 129/63 99 08/20/17 02:22 08/20/17 02:22 08/20/17 02:22 08/20/17 02:22 08/20/17 02:22 Oxygen Devices in Use Now: None Appearance: Male sitting up in chair in NAD Eyes: No Scleral Icterus Ears/Nose/Mouth/Throat: Mucous Membranes Moist Neck: Trachea Midline Respiratory: Symmetrical Chest Expansion and Respiratory Effort, Clear to Auscultation Cardiovascular: NL Sounds; No Murmurs; No JVD, No Edema Abdominal: NL Sounds; No Tenderness; No Distention Lymphatic: No Cervical Adenopathy Extremities: No Edema Skin: No Rash or Ulcers Neurological: Alert and Oriented x 3, NL Muscle Strength and Tone Nutrition: Taking PO's Result Diagrams: 08/19/17 05:06 08/19/17 05:06 Microbiology and Other Data: . Assess/Plan/Problems-Billing Assessment: Mr. Petit is a 62 yo male with PMH of CVA with right-sided hemiparesis, dementia, CAD, DM, COPD, and GERD admitted with sepsis secondary to cellulitis. - Patient Problems (1) GI bleed Comment: - HH stable - S/p EGD showing diffuse ulcerative esophagitis - Continue BID pantoprazole (2) Altered mental status Comment: - Resolved. - Suspect metabolic/hepatic encephalopathy/delirium - Neurology consult, input appreciated - Continue Rifaximin - Supportive care (3) Cellulitis Comment: - Resolved, right lower extremity. - Completed course of Zosyn. (4) COPD (chronic obstructive pulmonary disease) Comment: - No signs of exacerbation - Continue dulera (5) Diabetes Comment: - Glucose 100-300s. Controlled in AM - Continue Lantus and increase Lispro SS - Hold Januvia and metformin (6) HTN (hypertension) Comment: - BP well controlled. - Continue home metoprolol and lisinopril (7) CAD (coronary artery disease) Comment: - Asymptomatic - Continue metoprolol, atorvastatin, and isosorbide. - Patient ok to resume plavix today, not on aspirin. (8) CVA (cerebral vascular accident) Comment: - Old CVA with R hemiparesis - Per the [facility], he was ambulatory and oriented up to his admission to [facility] 07/21/17. - Mobility improving but still needs two assist, plan for DION (9) DVT prophylaxis Comment: - Heparin SQ (10) Full code status Comment: Status and Disposition: Inpatient. Will need short term rehab at discharge
[2017-08-20] MEDS: PARoxetine HCL TAB* 20 MG PO SCH (11:30)
[2017-08-20] MEDS: Lisinopril TAB* 10 MG PO SCH (11:30)
[2017-08-20] MEDS: Metoprolol Tartrate TAB* 25 MG PO SCH ×2 (11:31→20:16)
[2017-08-20] MEDS: Clopidogrel TAB* 75 MG PO SCH (11:31)
[2017-08-20] MEDS: RiFAXimin* 550 MG TAB PO SCH ×2 (11:32→20:16)
[2017-08-20] MEDS: Oxybutynin XL TAB* 5 MG PO SCH (11:34)
[2017-08-20] MEDS: Isosorbide Mononitrate ER TAB* 30 MG PO SCH (11:35)
[2017-08-20] MEDS: Potassium Chlor TAB* 20 MEQ TAB.ER PO SCH ×2 (11:36→20:17)
[2017-08-20] MEDS: Pantoprazole IV* 40 MG IV SCH ×2 (11:43→20:17)
[2017-08-20] MEDS: Clotrimazole 1% CREAM* 30 GM TOPICAL SCH ×2 (11:43→20:17)
[2017-08-20] MEDS: Heparin VIAL(*) 5000 UNITS/ML VIAL (FIVE THOUSAND) SUBCUT SCH ×2 (14:13→22:19)
[2017-08-20] MEDS: Insulin GLARGINE(*) 1 UNITS UNIT SUBCUT SCH (20:17)
[2017-08-20] MEDS: Atorvastatin* 40 MG TAB PO SCH (20:17)
[2017-08-21] MEDS: Heparin VIAL(*) 5000 UNITS/ML VIAL (FIVE THOUSAND) SUBCUT SCH ×3 (06:01→22:00)
[2017-08-21] MEDS: Mometasone/Formoter 100/5 MDI INH SCH ×2 (09:27→19:57)
[2017-08-21] MEDS: Insulin LISPRO* 1 UNITS UNIT SUBCUT SCH ×3 (09:36→21:59)
[2017-08-21] MEDS: PARoxetine HCL TAB* 20 MG PO SCH (09:39)
[2017-08-21] MEDS: Metoprolol Tartrate TAB* 25 MG PO SCH ×2 (09:40→21:59)
[2017-08-21] MEDS: Oxybutynin XL TAB* 5 MG PO SCH (09:42)
[2017-08-21] MEDS: Isosorbide Mononitrate ER TAB* 30 MG PO SCH (09:43)
[2017-08-21] MEDS: Pantoprazole IV* 40 MG IV SCH ×3 (09:46→22:25)
[2017-08-21] MEDS: RiFAXimin* 550 MG TAB PO SCH ×2 (09:46→22:09)
[2017-08-21] MEDS: Potassium Chlor TAB* 20 MEQ TAB.ER PO SCH ×3 (09:46→22:05)
[2017-08-21] MEDS: Lisinopril TAB* 10 MG PO SCH (09:58)
[2017-08-21] MEDS: Clotrimazole 1% CREAM* 30 GM TOPICAL SCH ×2 (09:59→22:00)
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
[2017-08-21] MEDS: Atorvastatin* 40 MG TAB PO SCH (21:59)
[2017-08-21] MEDS: Insulin GLARGINE(*) 1 UNITS UNIT SUBCUT SCH (22:00)
[2017-08-22] MEDS: Heparin VIAL(*) 5000 UNITS/ML VIAL (FIVE THOUSAND) SUBCUT SCH ×2 (05:54→12:40)
[2017-08-22] MEDS: Mometasone/Formoter 100/5 MDI INH SCH (08:24)
[2017-08-22] MEDS: Insulin LISPRO* 1 UNITS UNIT SUBCUT SCH ×2 (08:42→12:32)
[2017-08-22] MEDS: Pantoprazole IV* 40 MG IV SCH (08:45)
[2017-08-22] MEDS: Oxybutynin XL TAB* 5 MG PO SCH (08:45)
[2017-08-22] MEDS: RiFAXimin* 550 MG TAB PO SCH (08:45)
[2017-08-22] MEDS: Lisinopril TAB* 10 MG PO SCH (08:45)
[2017-08-22] MEDS: Isosorbide Mononitrate ER TAB* 30 MG PO SCH (08:46)
[2017-08-22] MEDS: Metoprolol Tartrate TAB* 25 MG PO SCH (08:46)
[2017-08-22] MEDS: PARoxetine HCL TAB* 20 MG PO SCH (08:46)
[2017-08-22] MEDS: Potassium Chlor TAB* 20 MEQ TAB.ER PO SCH (08:46)
[2017-08-22] MEDS: Clopidogrel TAB* 75 MG PO SCH (08:46)
[2017-08-22] MEDS: Clotrimazole 1% CREAM* 30 GM TOPICAL SCH (08:49)
[2017-08-22 11:50] VITALS: BP 114/52
--- NOTE | 2017-08-22 12:51 | DS ---
CC: Dr. Bryan Freedman; Dr. Shawn Maldonado; Dr. Angelina Banegas; Dr. Stephanie Aguilar* DATE OF ADMISSION: 08/01/2017. DATE OF DISCHARGE: 08/22/2017. PRIMARY CARE PHYSICIAN: Dr. Bryan Freedman. CONSULTING PROVIDERS WHILE IN THE HOSPITAL: Dr. Shawn Maldonado, Dr. Angelina Banegas, Dr. Stephanie Aguilar. MY ATTENDING WHILE IN THE HOSPITAL: Dr. Roselia Montalvo* (dictated by DENY Kearney). PRIMARY DISCHARGE DIAGNOSES: 1. Cellulitis of the right foot. 2. Altered mental status. 3. Metabolic encephalopathy. 4. Sepsis. 5. Gastrointestinal bleeding. SECONDARY DISCHARGE DIAGNOSES: 1. Diabetes mellitus type 2. 2. Hypertension. 3. Hyperlipidemia. 4. Coronary artery disease, status post MD and CABG. 5. Dementia. 6. Chronic peripheral arterial disease. 7. Hepatic insufficiency. 8. COPD. STUDIES DONE WHILE IN THE HOSPITAL: 1. Chest x-ray from 08/01/2017, read as pulmonary interstitial edema. 2. Electrocardiogram from 08/01/2017 shows sinus tachycardia, rate 128, ST segment depression in V2, V3, V4, normal axis, QTC of 467, ST segment elevation , no other abnormalities. 3. EKG from 08/14/2017 shows rate of 99, QTC of 491, resolved ST depression, no other ST segment changes, normal axis, no blocks or hypertrophy, no other abnormalities. 4. Brain CT from 08/02/2017, read as probable old left frontal lobe infarct. No definite intracranial mass or hemorrhage is noted. Sphenoid sinusitis. 5. KUB from 08/03/2017, read as there are metallic leads which project over the upper mid abdomen of unknown significance. There is an electronic device which projects over the lateral aspect of the cardiac shadow on the left side. The inferior pelvis is cut off on the film. 6. Skull x-ray from 08/03/2017, read as no metallic foreign body or surgical clips are seen. 7. Chest x-ray from 08/03/2017, read as status post intubation and orogastric tube placement. Small bibasilar infiltrates. 8. Transthoracic echocardiogram from 08/03/2017, read as the left ventricular chamber size is normal. Mild to moderate concentric left ventricular hypertrophy. There is increased basal septal hypertrophy noted without evidence of an increased gradient across the left ventricular outflow tract. Global left ventricular wall motion and contractility are within normal limits. The estimated ejection fraction is 50 to 55 percent. Post surgical hypokinesis of the interventricular septum is observed consistent with coronary artery bypass. The left atrium is slightly dilated. There is mild tricuspid regurgitation. There is mild mitral regurgitation. There is a trace pulmonic regurgitation. The right ventricular global systolic function is low normal. 9. Brain CT from 08/05/2017, read as evaluation of the brain is limited by patient motion artifact. There is left hemisphere encephalomalacia similar in appearance to the 08/02/2017 CT examination. There is no definite acute intracranial hemorrhage. 10. Electroencephalogram from 08/07/2017, read as abnormal EEG due to generalized slowing of background rhythms consistent with anesthetic drug effect. There are no focal or epileptiform discharges on this reading. MEDICATIONS AT DISCHARGE: 1. Ventolin inhaler two puffs inhalation q.4 hours as needed for shortness of breath or wheezing. 2. Atorvastatin 40 mg p.o. at bedtime. 3. Clopidogrel 75 mg p.o. every other day. 4. Flonase two sprays both nares q.a.m. 5. Guaifenesin 1200 mg p.o. b.i.d. 6. Glargine insulin 24 units subcutaneous at bedtime. 7. Insulin regular 2 to 10 units subcutaneous t.i.d. a.c. sliding scale. 8. Imdur ER 30 mg p.o. q.a.m. 9. Lisinopril 40 mg p.o. q.a.m. 10. Loperamide 4 mg p.o. daily as needed. 11. Claritin D one tab p.o. q.a.m. 12. Metformin 1,000 mg p.o. b.i.d. 13. Metoprolol Tartrate 25 mg p.o. b.i.d. 14. Dulera two puffs inhalation b.i.d. 15. Multivitamin one tab p.o. q.a.m. 16. Oxybutynin 15 mg p.o. q.a.m. 17. Paroxetine 40 mg p.o. q.a.m. 18. Probiotic one cap p.o. daily. 19. Rifaximin 550 mg p.o. b.i.d. 20. Sitagliptin 100 mg p.o. q.a.m. 21. Pantoprazole 40 mg p.o. b.i.d. 22. Potassium Chloride 20 mEq p.o. daily. Medications discontinued at discharge: 1. Dexilant 60 mg p.o. daily. 2. Meloxicam 7.5 mg p.o. q.a.m. New medications at discharge: 1. Pantoprazole 40 mg p.o. b.i.d. 2. Potassium Chloride 20 mEq p.o. daily. HOSPITAL COURSE: This is a brief summary of the patient's presentation. For more details, please see the history and physical from Trina Maradiaga NP on 08/01/2017. In brief, the patient is a 62-year-old male with a past medical history significant for the above who was in his usual state of health at his residence of the [facility] before he presented to [facility] for increased pain and swelling in his leg. The patient was somewhat confused and combative, but to the best of the [facility]'s knowledge this was his baseline. The patient became more confused and aggressive while admitted at [facility]. Blood cultures and would cultures grew pseudomonas aeruginosa and klebsiella pneumoniae and enterococcus faecalis which was treated with Rocephin, which at least the pseudomonas was resistant to. The patient became combative and became tachycardic and showed other signs of sepsis, so he was transferred to [facility]'s ICU. The patient upon arrival was extremely combative despite being given antipsychotics and sedatives. The patient was unable to participate in any sort of history. The patient was started on Levaquin. The patient had a CT scan of his head which was read as above, negative for new stroke. Chest x-ray was obtained as above. The patient was seen in consultation by the Invasive Cardiovascular Technologist, Dr. Paez, who believed that this was metabolic encephalopathy due to his sepsis and possibly his chronic hepatic insufficiency for which he is on Rifaximin. The patient was started on Precedex and Zosyn. The patient was seen in consultation by Dr. Shawn Maldonado of Neurology who also concurred this was agitated delirium of unknown case, possible metabolic encephalopathy, sepsis meningitis, endocarditis. The patient had slightly elevated ammonia and was continued on his Rifaximin. The patient had an echocardiogram which did not show endocarditis. He had a spinal tap which was unremarkable showing colorless clear fluid with one white blood cell, 90 percent lymphocytes, glucose of 92, protein of 27, and negative VDRL, Lyme, HSV 1, herpes and West Nile. The patient was scheduled for an MRI, but could not have it due to metal as above. The patient was intubated and kept on a Precedex infusion. The patient had no complications with his lumbar puncture. The patient did not improve from August 03 to August 04. He remained intubated. The patient was started on Fentanyl. EEG was obtained and was read as above. No other causes were found for his altered mental status and it was believed to be agitated delirium , though an ischemic insult could not be ruled out. The patient did not improve and remained intubated. The patient's delirium may have been improved, but he was sedated for intubation. The patient was extubated and tolerated CPAP well. The patient's repeat electroencephalogram was normal except for as read above. The patient had a Lactulose suppository for his hyperammonemia in case this was contributing to his encephalopathy. The patient's blood sugars were around the 300s and his Lantus was increased and was continued on a sliding scale. The patient was essentially unchanged and stable. He was in sinus tachycardia. No other abnormalities. The patient was unable to swallow. His encephalopathy started to improve. On August 10, the patient became more communicative, but had aphasia. The patient's Edmonds was removed. The patient was continued on Zosyn at this point. No other issues. The patient on August 10 had a white blood cell count up to 23.8 of unknown cause. His vital signs did not show any other signs of sepsis or decompensation. The patient's blood pressure was actually high. He had no temperatures, except for one temperature of 100.4 on August 12. The patient was transferred off the Invasive Cardiovascular Technologist's service. The patient continued to be poor in communicating. The patient was seen by Physical Therapy and needed a Daniel lift to transfer. The patient was found to have seborrhea on his face which was treated with Clotrimazole cream. The patient remained poor at communication. The patient finished his Zosyn treatment on 08/13/2017. The patient developed dark stools on 08/13/2017 and was started on a Protonix drip. The patient had hemoglobins every four hours which were staying stable until 08/16/2017 when they decreased to the lowest level of 8.1. The patient was seen in consultation by GI on 08/16/2017. The patient throughout this time had had improved encephalopathy. The patient's Plavix was held during this time. He had no other complaints. The patient was scheduled for an endoscopy which was performed on 08/17/2017. The patient on 08/15/2017 slipped out of bed and did not hit his head and had no other injuries. This was witnessed by a staff member. The patient's EGD showed diffuse ulcerative esophagitis 30 to 40 cm from the incisors. No stigmata of recent bleeding. No active bleeding. Mild gastritis throughout the stomach and two superficial erosions with overlying exudate in the duodenal bulb with no stigmata of rectal bleeding. It was recommended that he be started on Protonix IV and then be continued on Omeprazole for six months. The patient continued to improve throughout the rest of his hospitalization and had no other issues including dark stools or blood in his stools. The patient's hemoglobin remained stable from 8 to 9, his most recent being 8.5 on 08/19/2017. The patient received a bed offer from [facility] on 08/22/2017 which he was amenable to being discharged to. PHYSICAL EXAMINATION ON THE DAY OF DISCHARGE: The patient is a 62-year-old male who appears stated age and is sitting in a chair in no acute distress. Vital signs at the time of discharge: Temperature 98.3, pulse rate 69, respiratory rate 16, oxygen saturation 99 percent on room air, blood pressure 112/59. HEENT: Head normocephalic, atraumatic. Sclerae anicteric. No conjunctival injection. Nasal mucosa moist. Oral mucosa moist. No pharyngeal erythema, discharge or exudates. Neck: Supple, nontender. No lymphadenopathy. No carotid bruit auscultated. Cardiac: Regular rate and rhythm. No clicks, murmurs, gallops or rubs. Pulse 2+ in bilateral dorsalis pedis, posterior tibial, and radial areas. No lower extremity edema noted. Respiratory: Clear to auscultation bilaterally. No wheezes, rales or rhonchi. Good air exchange throughout. Abdomen: Soft, nontender, nondistended. Bowel sounds present. Normoactive in all four quadrants. No hepatosplenomegaly. No abdominal bruits auscultated. Genitourinary: No suprapubic tenderness, no CVA tenderness. Skin: The patient has an approximately 2 cm x 2 cm area of eschar with slightly surrounding erythema on his right ankle. The patient also has a large callous on his left foot. The patient has several other nicks and bruises on his feet which do not appear inflamed and they are not bleeding. Neuro: The patient has a slight right- sided facial droop which resolves with smiling. Cranial nerves II through XII otherwise intact. The patient has grade 2/5 strength with contractures in his right upper extremity. The patient has 4-/5 strength in his right lower extremity. The patient has 5/5 strength in his left upper extremity. Cerebellar testing completed without difficulty. The patient is unable to stand at this time. The patient has significant muscle atrophy. Reflexes 3+ on the right side in the radial patellar and Achilles areas. Babinski nonreactive. Reflexes 2+ on the biceps, patellar and Achilles areas. On the left side, Babinski downgoing. DISCHARGE PLAN: The patient will be discharged to [facility] for rehab with the intention of returning to the [facility]. The patient's GI bleed seems to have resolved as he himself seems to be at his baseline mentally per collateral reports. The patient should be continued on Pantoprazole 40 mg p.o. b.i.d. for six months. The patient should follow-up with his primary care provider within one week for general medical management. The patient should be returned to his home regimen of insulin as well as Metformin and Januvia which appears to be inadequate for his diabetes, but given the severity of this disease while in the hospital and his new functional status, no changes will be made at this time and he should be followed as an outpatient for repeat hemoglobin A1c. The patient should have a repeat CBC and BMP within one week from discharge to assess his anemia as well as his kidney function due to his Metformin dosing and diabetes, as well as hypertension. The patient should continue on all his other medications. The patient should avoid NSAIDs, such as Mobic which was previously prescribed due to ulcerations in his esophagus and stomach. These were likely due to his prolonged hospitalization with intubation. The patient should return to the hospital for alarming symptoms such as increased swelling and erythema around the wounds on his feet, chest pain, or shortness of breath. ACTIVITY: The patient should engage in activity as tolerated, working with Physical Therapy as above to restore his functional status. DIET: The patient should have a heart healthy consistent carbohydrate diet with mechanical ground texture. Approximately 90 minutes were spent on this discharge, 45 of which were spent face- to-face with the patient obtaining history and physical and discussing treatment plan. DENY KEARNEY [id number]/[facility] #: [id number]
== END 2017-08-22 16:15 | disposition swing bed (61) | DRG 870 ==
LOC: ICU 10:47 → MED 08-10 17:00
PROVIDERS: ADMIT Internal Medicine; ATTEND Internal Medicine
PROC: 4A10X4Z Monitoring of Central Nervous Electrical Activity, External Approach (ICD-10-PCS; principal; 2017-08-02)
PROC: 5A1955Z Respiratory Ventilation, Greater than 96 Consecutive Hours (ICD-10-PCS; 2017-08-03)
PROC: 0BH17EZ Insertion of Endotracheal Airway into Trachea, Via Natural or Artificial Opening (ICD-10-PCS; 2017-08-03)
PROC: 009U3ZX Drainage of Spinal Canal, Percutaneous Approach, Diagnostic (ICD-10-PCS; 2017-08-03)
PROC: 0DH67UZ Insertion of Feeding Device into Stomach, Via Natural or Artificial Opening (ICD-10-PCS; 2017-08-03)
PROC: 0T9B70Z Drainage of Bladder with Drainage Device, Via Natural or Artificial Opening (ICD-10-PCS; 2017-08-03)
PROC: 0BP1XDZ Removal of Intraluminal Device from Trachea, External Approach (ICD-10-PCS; 2017-08-09)
PROC: 0DJ08ZZ Inspection of Upper Intestinal Tract, Via Natural or Artificial Opening Endoscopic (ICD-10-PCS; 2017-08-17)
PROC: 0TPBX0Z Removal of Drainage Device from Bladder, External Approach (ICD-10-PCS; 2017-08-22)
DX: A41.9 Sepsis, unspecified organism (principal); J96.00 Acute respiratory failure, unspecified whether with hypoxia or hypercapnia; G93.41 Metabolic encephalopathy; J44.9 Chronic obstructive pulmonary disease, unspecified; K22.10 Ulcer of esophagus without bleeding; I69.351 Hemiplegia and hemiparesis following cerebral infarction affecting right dominant side; L03.115 Cellulitis of right lower limb; F03.90 Unspecified dementia, unspecified severity, without behavioral disturbance, psychotic disturbance, mood disturbance, and anxiety; K26.9 Duodenal ulcer, unspecified as acute or chronic, without hemorrhage or perforation; I25.10 Atherosclerotic heart disease of native coronary artery without angina pectoris; D64.9 Anemia, unspecified; K29.70 Gastritis, unspecified, without bleeding; K21.0 Gastro-esophageal reflux disease with esophagitis; E87.6 Hypokalemia; L21.9 Seborrheic dermatitis, unspecified; E78.5 Hyperlipidemia, unspecified; E11.51 Type 2 diabetes mellitus with diabetic peripheral angiopathy without gangrene; R00.0 Tachycardia, unspecified; J32.3 Chronic sphenoidal sinusitis; I08.1 Rheumatic disorders of both mitral and tricuspid valves; K72.10 Chronic hepatic failure without coma; I10 Essential (primary) hypertension; B95.2 Enterococcus as the cause of diseases classified elsewhere; B96.1 Klebsiella pneumoniae [K. pneumoniae] as the cause of diseases classified elsewhere; B96.5 Pseudomonas (aeruginosa) (mallei) (pseudomallei) as the cause of diseases classified elsewhere; R41.0 Disorientation, unspecified; Z78.1 Physical restraint status; Z95.5 Presence of coronary angioplasty implant and graft; Z95.1 Presence of aortocoronary bypass graft; Z79.02 Long term (current) use of antithrombotics/antiplatelets; Z79.4 Long term (current) use of insulin; I69.320 Aphasia following cerebral infarction
CPT/HCPCS: 36415; 70250; 70450; 71045; 74018; 80048; 80053; 82140; 82270; 82550; 82945; 83605; 83735; 83880; 84100; 84145; 84157; 84443; 85014; 85018; 85025; 85610; 86140; 86141; 86592; 86618; 87040; 87070; 87205; 87529; 87641; 87798; 89051; 93005; 93306; 94002; 94003; 94640; 94760; 95816; 95819; 97530; 99156; 99157; A9270-GY; J0360; J0696; J1630; J1644; J1940; J2060; J2250; J2270; J2405; J2543; J2704; J3010; J3370; J3411; J3475; J3480; J3486; P9047

== ENCOUNTER 2018-05-27 07:32 | Inpatient (IN) | payer MEDICARE, MEDICAID ==
[~2018-05-27 07:32] MED LIST: Buffered Lidocaine 0.9% SYRIN* 5 ML/SYR SYRINGE INTRADERM ONE; Famotidine IV* 10 MG/ML 2 ML (20 mg) IV ONE
[2018-05-27] MEDS ORDERED: Famotidine IV* 10 MG/ML 2 ML (20 mg) ONE (08:01)
[2018-05-27] MEDS ORDERED: ceFAZolin 2 GM PREMIX in ORs 2 GM/50 ML BAG IVPB ONE (08:01)
[2018-05-27] MEDS ORDERED: Buffered Lidocaine 0.9% SYRIN* 5 ML/SYR SYRINGE ONE ×2 (08:02→08:57)
[2018-05-27] MEDS ORDERED: Propofol* 10 MG/ML 20 ML BTL IV PUSH ONE (08:25)
[2018-05-27] MEDS ORDERED: KETAMINE HCL* 50 MG/ML 10 ML VIAL ONE (08:25)
[2018-05-27] MEDS ORDERED: Midazolam* 1 MG/ML 5 ML VIAL (5 MG) ONE (08:25)
[2018-05-27] MEDS ORDERED: Dexamethasone IV* 4 MG/ML 1 ML (4 MG) ONE (08:25)
[2018-05-27] MEDS ORDERED: Phenylephrine INJ* 10 MG/ML 1 ML VIAL (10 MG) ONE (08:25)
[2018-05-27] MEDS ORDERED: fentaNYL* 50 MCG/ML 2 ML VIAL (100 MCG VIAL) ONE ×2 (08:25→11:08)
[2018-05-27] MEDS ORDERED: Ondansetron INJ* 2 MG/ML VIAL ONE (08:25)
[2018-05-27] MEDS ORDERED: Lidocaine 2% PF * 5 ML VIAL ONE (08:25)
[2018-05-27] MEDS ORDERED: Lidocaine 2% PF* 10 ML AMP ONE (08:59)
[2018-05-27] MEDS ORDERED: Bupivacaine 0.5% SDV PF* 30ML VIAL ONE (08:59)
[2018-05-27] MEDS ORDERED: VASOPRESSIN 20 UNITS/ML 1 ML VIAL ONE (09:35)
[2018-05-27] MEDS ORDERED: oxyCODONE/Acetamin 5/325 MG* TAB PO PRN (09:51)
[2018-05-27] MEDS ORDERED: Naloxone* 0.4 MG/ML 1 ML VIAL IV PRN (09:51)
[2018-05-27] MEDS ORDERED: fentaNYL* 50 MCG/ML 2 ML VIAL (100 MCG VIAL) IV PRN (09:51)
[2018-05-27] MEDS ORDERED: Ondansetron INJ* 2 MG/ML VIAL IV PRN ×2 (09:51→13:25)
[2018-05-27] MEDS ORDERED: oxyCODONE/Acetamin 5/325 MG* TAB ONE (12:10)
[2018-05-27] MEDS ORDERED: Morphine VIAL* 4 MG/ML VIAL (1 ml vial) IV PRN (13:25)
[2018-05-27] MEDS ORDERED: traZODone TAB* 50 MG TAB PO PRN (13:25)
[2018-05-27] MEDS ORDERED: Magnesium Hydroxide LIQ* 30 ML UDC PO PRN (13:25)
[2018-05-27] MEDS ORDERED: oxyCODONE TAB* 5 MG TAB PO PRN ×2 (13:30)
[2018-05-27] MEDS ORDERED: guaiFENesin LIQ* 100 MG/5 ML UDC PO PRN (13:31)
[2018-05-27] MEDS ORDERED: Loperamide CAP* 2 MG PO PRN (13:31)
[2018-05-27] MEDS ORDERED: Ibuprofen TAB* 200 MG PO PRN (13:31)
[2018-05-27] MEDS ORDERED: Albuterol HFA INHALER* 8 gm MDI INH PRN (13:31)
[2018-05-27] MEDS ORDERED: Acetaminophen TAB* 325 MG PO SCH (14:00)
[2018-05-27] MEDS ORDERED: Ibuprofen TAB* 400 MG ONE (14:34)
[2018-05-27] MEDS ORDERED: Morphine VIAL* 4 MG/ML VIAL (1 ml vial) ONE (14:34)
[2018-05-27] MEDS ORDERED: Dextrose 50% Syringe 50 ML* 25 GM/50 ML SYRINGE IV PUSH PRN (14:47)
[2018-05-27] MEDS: ceFAZolin 1 GM in Dextrose (*) 1 GM/50 ML BAG IVPB SCH (17:23)
[2018-05-27] MEDS: Insulin LISPRO* 1 UNITS UNIT SUBCUT SCH ×2 (17:24→21:25)
[2018-05-27] MEDS: Cyclobenzaprine TAB* 10 MG PO PRN (18:03)
--- NOTE | 2018-05-27 20:25 | CONS ---
CC: Dr. Petit; Dr. Bryan Freedman; Dr. Knott * CONSULTATION REPORT: DATE OF ADMISSION/CONSULT: 05/27/18 PRIMARY CARE PROVIDER: Dr. Bryan Freedman. REQUESTING PHYSICIAN: Dr. Petit from Orthopedic Surgery. REASON FOR CONSULT: Medical management of the patient while hospitalized. HISTORY OF PRESENT ILLNESS: Mr. Petit is a 62-year-old male with history of right- sided hemiparesis due to ischemic stroke, who was in same-day surgery today with Dr. Petit for right ankle/foot release. Postoperatively, he was noted to be nonweightbearing on the right foot. Due to that, he was unable to go back to his long-term residence, the [facility] where he usually resides at. The patient at baseline holds a quad cane in his right arm due to slightly contracted and is able to ambulate independently. Unfortunately, due to the nonweightbearing status on the right leg, he is unable to do so and he is being admitted to the hospital with plan for placement postoperatively. PAST MEDICAL HISTORY: 1. History of CVA, ischemic, approximately 3 years ago with residual right- sided hemiparesis and right-sided contractions in both upper and lower extremities. 2. History of diabetes type 2. 3. Hypertension. 4. Hypothyroidism. 5. Reported coronary artery disease. 6. Nonalcoholic liver cirrhosis. 7. History of status post implantable loop recorder for cryptogenic stroke. 8. History of dyslipidemia. 9. Right inguinal hernia repair. 10. Coronary artery bypass grafting in 2006. 11. Penile prosthesis. 12. Status post esophageal repair in the past. MEDICATIONS AT HOME: Include: 1. Metformin 1000 mg b.i.d. 2. Robitussin on a p.r.n. basis. 3. Tramadol 50 mg every 6 hours p.r.n. 4. Tamsulosin 2 caps daily, which is a total of 0.8 mg daily. 5. Januvia 100 mg daily. 6. Xifaxan 550 mg b.i.d. 7. Paroxetine 20 mg daily. 8. Oxybutynin 15 mg q.a.m. 9. Neosporin ointment on a p.r.n. basis. 10. Multivitamin 1 tablet daily. 11. Metoprolol tartrate 25 mg b.i.d. 12. Claritin-D 1 tablet q.a.m. 13. Loperamide on a p.r.n. basis. 14. Lisinopril 40 mg daily. 15. Probiotic supplement 1 capsule daily. 16. Imdur 30 mg daily. 17. Insulin lispro 3 times a day on the sliding scale. 18. Lantus insulin 22 units subcutaneously at bedtime. 19. Ibuprofen on a p.r.n. basis at 400 mg every 6 hours. 20. Breo Ellipta 200/25 one puff inhalation daily. 21. Fluticasone nasal spray 2 sprays both nostrils daily. 22. Dexilant 1 tablet daily. 23. Plavix 75 mg every other day. 24. Atorvastatin 40 mg daily. 25. Albuterol inhaler on a p.r.n. basis. 26. Lovenox 40 mg b.i.d. ALLERGIES: No known drug allergies. FAMILY HISTORY: Father's history unknown. The patient stated that "he ran away " as soon as he knew that the patient's mother was . The patient's mother at the age of 82 and had history of stroke. SOCIAL HISTORY: The patient is a resident [facility] the [facility]. He stated that he lives there with his fiancee, Chiqui, who would be his surrogate. He denies any tobacco, alcohol, or drug use. He ambulates with a quad cane. REVIEW OF SYSTEMS: Please see history of present illness. In addition to above mentioned, the patient once again has right-sided hemiparesis for the past 3 years. He stated that he had a wound on his right foot that resolved in the past. He denies any recent illness. All the remaining 12 systems were reviewed with the patient and were otherwise negative. PHYSICAL EXAM: Vital Signs: Blood pressure of 132/82, heart rate of 75 and regular, respiratory rate 16, oxygen saturation 95% on room air, temperature of 97.5. General: The patient is a pleasant 62-year-old male, who is in no acute distress. Alert, awake, and oriented x2. The patient is a rather poor historian. HEENT: Head: Atraumatic, normocephalic. Eyes: Pupils are equal and reactive to light and accommodation. Oropharynx is clear. Mucosa moist. Neck: Supple. No JVD. No bruits bilaterally. Cardiovascular: Regular rate and rhythm. No murmur. Respiratory: Clear to auscultation bilaterally. Abdomen: Soft, nontender. Bowel sounds present in all 4 quadrants. Extremities: There is no edema. Pulses are +2 bilaterally. There is no clubbing or cyanosis. The patient's right foot is placed in postsurgical dressings and splint, and the dressings were not removed for evaluation. Please also note that the patient's right upper extremity and right lower extremity are contracted. Neuro Evaluation: The patient has mild right- sided facial droop sparing the forehead. His right arm and right leg are contracted and weaker distally. The mobility of the right ankle was unable to be evaluated due to postsurgical dressings. On evaluation of the skin, no ecchymotic areas or rashes noted. Psychiatric Evaluation: Rather poor historian. No evidence of anxiety or depression. LABORATORY DATA: None currently. ASSESSMENT AND PLAN: 1. The patient is status post right ankle release with history of contraction due to ischemic cerebrovascular accident. The patient will need placement in short- term rehabilitation and case reviewer are going to be working on that. 2. In regards to the patient's history of hypertension, his outpatient blood pressure medications are going to be continued. 3. For his benign prostatic hypertrophy, his tamsulosin is going to be continued. 4. For the patient's history of diabetes, the patient's oral hypoglycemics are going to be held. The patient's sugars had been in the 130s range. He will continue on insulin sliding scale and if his glucose level increases, he is going to be restarted on his insulin Lantus at a lower dose most likely. 5. For his history of coronary artery disease, the patient was restarted by Surgery on Plavix. I will also inquire if the patient can be placed on heparin for DVT prophylaxis if possible on the first day postop. Please note that the patient is chronically on Xifaxan, which is going to be continued. As per medical records obtained from the patient's a r collections rep, Dr. Nikos Raymond, the patient apparently has history of nonalcoholic liver cirrhosis. TIME SPENT: Approximately 65 minutes were spent on consultation of this patient , more than half that time was spent [id number] with the patient during the interview and physical exam. Thank you very much for allowing me to see your patient in consultation. We will follow on a daily basis. [id number]/[facility] #: [id number] [facility]
[2018-05-27] MEDS ORDERED: metFORMIN* 500 MG TAB PO SCH (21:00)
[2018-05-27] MEDS: RiFAXimin* 550 MG TAB PO SCH (21:17)
[2018-05-27] MEDS: Metoprolol Tartrate TAB* 25 MG PO SCH (21:17)
[2018-05-27] MEDS: Acyclovir* 400 MG TAB PO SCH (21:17)
[2018-05-27] MEDS: Atorvastatin* 40 MG TAB PO SCH (21:18)
[2018-05-27] MEDS: Docusate CAP* 100 MG PO SCH ×2 (21:20→21:21)
[2018-05-27] MEDS: guaiFENesin ER TAB 600 MG PO SCH (21:20)
[2018-05-27] MEDS: Magnesium Hydroxide LIQ* 30 ML UDC PO SCH (21:21)
[2018-05-27] MEDS: Acetaminophen TAB* 325 MG PO SCH (21:25)
[2018-05-27] MEDS: Ibuprofen TAB* 400 MG PO PRN (21:29)
[2018-05-28] MEDS: ceFAZolin 1 GM in Dextrose (*) 1 GM/50 ML BAG IVPB SCH ×2 (01:08→09:45)
[2018-05-28] MEDS: Acetaminophen TAB* 325 MG PO SCH ×3 (05:55→22:20)
--- NOTE | 2018-05-28 08:36 | PN ---
Subjective Date of Service: 05/28/18 Interval History: pt feels tired, had been refusing fingersticks and occasionally yelling and upset as per RN notes. This AM offers no other complaints Objective Active Medications: Acetaminophen (Tylenol Tab*) 975 mg PO Q8HR [facility] Last Admin: 05/28/18 05:55 Dose: Not Given Acyclovir (Zovirax Tab*) 400 mg PO BID [facility] Last Admin: 05/27/18 21:17 Dose: 400 mg Albuterol (Ventolin Hfa Inhaler*) 2 puff INH Q4H PRN PRN Reason: SOB/WHEEZING Atorvastatin Calcium (Lipitor*) 40 mg PO BEDTIME [facility] Last Admin: 05/27/18 21:18 Dose: 40 mg Cetirizine HCl (Zyrtec*) 10 mg PO QAM [facility] Clopidogrel Bisulfate (Plavix Tab*) 75 mg PO EVERY OTHER DAY [facility] Cyclobenzaprine HCl (Flexeril Tab*) 5 mg PO Q8H PRN PRN Reason: MUSCLE SPASMS Last Admin: 05/27/18 18:03 Dose: 5 mg Dexlansoprazole (Dexilant (Nf)) 60 mg PO QAM [facility] Dextrose (D50w Syringe 50 Ml*) 12.5 gm IV PUSH .FOR FS < 60 - SS PRN PRN Reason: FS < 60 Docusate Sodium (Colace Cap*) 100 mg PO BID [facility] Last Admin: 05/27/18 21:21 Dose: Not Given Fluticasone Propionate (Flonase Nasal [place] 50mcg*) 2 spray BOTH NARES QAM [facility] Fluticasone/Vilanterol (Breo Ellipta Mdi 200/25(Nf)) 1 puff INH QAM [facility] Guaifenesin (Mucinex*) 1,200 mg PO BID [facility] Last Admin: 05/27/18 21:20 Dose: 1,200 mg Cefazolin Sodium/Dextrose (Kefzol 1 Gm In Dextrose Duplex (*)) 1 gm in 50 mls @ 200 mls/hr IVPB Q8H [facility] Stop: 05/28/18 09:44 Last Admin: 05/28/18 01:08 Dose: 200 mls/hr Ibuprofen (Motrin Tab*) 400 mg PO Q6H PRN PRN Reason: PAIN Last Admin: 11/26/18 21:29 Dose: 400 mg Insulin Glargine (Lantus(*)) 10 units SUBCUT Q24H [facility] Insulin Human Lispro (Humalog*) 0 units SUBCUT ACHS [facility]; Protocol Last Admin: 05/27/18 21:25 Dose: Not Given Isosorbide Mononitrate (Imdur Er Tab*) 30 mg PO QAM [facility] Lactobacillus Rhamnosus (Lactobacillus Acidophilus*) 1 tab PO DAILY [facility] Lisinopril (Prinivil Tab*) 40 mg PO QAM [facility] Loperamide HCl (Imodium Cap*) 4 mg PO .SEE INSTRUCTIONS PRN PRN Reason: LOOSE STOOLS Magnesium Hydroxide (Milk Of Magnesia Liq*) 30 ml PO BID [facility] Last Admin: 05/27/18 21:21 Dose: Not Given Magnesium Hydroxide (Milk Of Magnesia Liq*) 30 ml PO Q6H PRN PRN Reason: constipation Metoprolol Tartrate (Lopressor Tab*) 25 mg PO BID [facility] Last Admin: 05/27/18 21:17 Dose: 25 mg Morphine Sulfate (Morphine Vial*) 2 mg IV Q2H PRN PRN Reason: PAIN Last Admin: 05/27/18 14:36 Dose: 2 mg Multivitamins/Minerals (Theragran/Minerals Tab*) 1 tab PO QAM [facility] Ondansetron HCl (Zofran Inj*) 4 mg IV Q6H PRN PRN Reason: nausea Oxybutynin Chloride (Ditropan Xl Tab*) 15 mg PO QAM [facility] Oxycodone HCl (Roxycodone Tab*) 5 mg PO Q4H PRN PRN Reason: PAIN - MODERATE Oxycodone HCl (Roxycodone Tab*) 10 mg PO Q4H PRN PRN Reason: PAIN - SEVERE Paroxetine HCl (Paxil Tab*) 20 mg PO QAM [facility] Pseudoephedrine HCl (Sudafed 12 Hour*) 240 mg PO DAILY [facility] Rifaximin (Xifaxan*) 550 mg PO BID [facility] Last Admin: 05/27/18 21:17 Dose: 550 mg Tamsulosin HCl (Flomax Cap*) 0.8 mg PO QAM [facility] Trazodone HCl (Desyrel Tab*) 25 mg PO BEDTIME PRN PRN Reason: insomnia Vital Signs - 8 hr 05/28/18 05/28/18 03:34 07:18 Temperature 98.0 F 97.7 F Pulse Rate 73 71 Respiratory 17 16 Rate Blood Pressure 98/53 121/54 (mmHg) O2 Sat by Pulse 96 93 Oximetry Oxygen Devices in Use Now: None Appearance: 62 yo M in nAD. AAOx2, poor historian Eyes: No Scleral Icterus, PERRLA Ears/Nose/Mouth/Throat: NL Teeth, Lips, Gums, Mucous Membranes Moist Neck: NL Appearance and Movements; NL JVP, Trachea Midline Respiratory: Symmetrical Chest Expansion and Respiratory Effort, Clear to Auscultation Cardiovascular: NL Sounds; No Murmurs; No JVD, RRR Abdominal: NL Sounds; No Tenderness; No Distention, No Hepatosplenomegaly Lymphatic: No Cervical Adenopathy Extremities: No Clubbing, Cyanosis Skin: No Nodules or Sclerosis, - - R post op foot in surgical dressings-not removed Neurological: - - R facila droop-mild, R arm weak and contracted. R LE weak and contracted Assess/Plan/Problems-Billing Assessment: 62 yo M with h/o CAD, CADET, R hemiparesis, DM2, s/p R foot tendon release for contraction now awaiting placement . Medicine consult - Patient Problems (1) H/O foot surgery Comment: by on 05/17/18 plan for DION (2) CAD (coronary artery disease) Comment: Asymptomatic Continue metoprolol, atorvastatin, isosorbide, plavix Not on aspirin. (3) COPD (chronic obstructive pulmonary disease) Comment: No signs of exacerbation (4) CVA (cerebral vascular accident) Comment: Old CVA with R hemiparesis Per the [facility], he was ambulatory at baseline with a cane plan for DION (5) Diabetes Comment: restart Lantus andcont Lispro SS Hold Januvia and metformin, resume at discharge. (6) HTN (hypertension) Comment: BP well controlled. Continue home metoprolol and lisinopril (7) DVT prophylaxis Comment: HSQ
[2018-05-28] MEDS ORDERED: BREO ELLIPTA INH SCH (09:00)
[2018-05-28] MEDS ORDERED: SitaGLIPtin (NF) 100 MG TAB PO SCH (09:00)
[2018-05-28] MEDS: Insulin LISPRO* 1 UNITS UNIT SUBCUT SCH ×4 (09:36→20:52)
[2018-05-28] MEDS: Acyclovir* 400 MG TAB PO SCH ×2 (09:46→20:31)
[2018-05-28] MEDS: Cetirizine* 10 MG TAB PO SCH (09:47)
[2018-05-28] MEDS: Fluticasone NASAL SPRAY 50MCG* 16 gm SPRAY BTL BOTH NARES SCH (09:48)
[2018-05-28] MEDS: Multivitamins/Minerals TAB PO SCH (09:49)
[2018-05-28] MEDS: Metoprolol Tartrate TAB* 25 MG PO SCH ×2 (09:49→20:33)
[2018-05-28] MEDS: Lactobacillus Acidophilus* 1 TAB PO SCH (09:50)
[2018-05-28] MEDS: Lisinopril TAB* 10 MG PO SCH (09:50)
[2018-05-28] MEDS: Magnesium Hydroxide LIQ* 30 ML UDC PO SCH ×2 (09:50→20:33)
[2018-05-28] MEDS: Isosorbide Mononitrate ER TAB* 30 MG PO SCH (09:51)
[2018-05-28] MEDS: Tamsulosin CAP* 0.4 MG PO SCH (09:51)
[2018-05-28] MEDS: guaiFENesin ER TAB 600 MG PO SCH ×2 (09:52→20:32)
[2018-05-28] MEDS: Oxybutynin XL TAB* 5 MG PO SCH (09:52)
[2018-05-28] MEDS: PARoxetine HCL TAB* 20 MG PO SCH (09:52)
[2018-05-28] MEDS: Docusate CAP* 100 MG PO SCH ×2 (09:53→20:33)
[2018-05-28] MEDS: RiFAXimin* 550 MG TAB PO SCH ×2 (09:54→20:32)
[2018-05-28] MEDS: Pseudoephedrine HCL ER TAB* 120 MG PO SCH (09:55)
[2018-05-28] MEDS: Dexlansoprazole (NF) 60 MG CAP PO SCH (09:56)
[2018-05-28] MEDS: Fluticasone/Vilanterol MDI(NF) 200/25 MDI INH SCH (09:56)
[2018-05-28] MEDS: Insulin GLARGINE(*) 1 UNITS UNIT SUBCUT SCH (10:17)
[2018-05-28] MEDS: Cyclobenzaprine TAB* 10 MG PO PRN (10:19)
[2018-05-28] MEDS: Ibuprofen TAB* 400 MG PO PRN ×2 (10:19→20:15)
--- NOTE | 2018-05-28 11:36 | PN ---
Progress Note - Progress Note Date of Service: 05/28/18 SOAP: Subjective: [] Patient was seen and examined at bedside. Confirms pain of operative site which is tolerable. He denies fever, chills, CP, SOB, dizziness. Objective: []General: Well appearing, NAD RLE: Dressing CDI, no skin irritation at edges , no erythema proximally. Able to wiggle toes, sensation intact distally, cap refill less than two seconds distally. LLE: Calf supple and nontender without erythema, edema or palpable cords Assessment: []POD 1 s/p right ankle posterior medial release Plan: []NWB operative extremity F/U Dr Petit next week Needs rehab placement as he cannot return to [facility] while he is NWB. Vital Signs Temp 97.7 F 05/28/18 07:18 Pulse 71 05/28/18 07:18 Resp 18 05/28/18 10:19 BP 121/54 05/28/18 07:18 Pulse Ox 93 05/28/18 07:18 Intake & Output 05/27/18 05/28/18 05/28/18 18:59 06:59 18:59 Intake Total 750 1820 201 Output Total 575 1255 Balance 750 1245 -1054 Weight 155 lb 9.6 oz Intake: IV Fluids 750 980 101 ABX - CEFAZOLIN 55 LR 750 980 NS (0.9%) 46 Oral 840 100 Output: Urine 575 1255 Laboratory Last Values POC Glucose (mg/dL) 205 mg/dL (70-100) H 05/27/18 16:34
[2018-05-28] MEDS: Heparin VIAL(*) 5000 UNITS/ML VIAL (FIVE THOUSAND) SUBCUT SCH ×2 (13:56→22:21)
--- NOTE | 2018-05-28 14:33 | OP ---
DATE OF OPERATION: 05/27/18 - ROOM #340 DATE OF : 57 SURGEON: Jer Petit MD STAFF RADIOLOGIST: Teresa Culp PA-C PRE-OP DIAGNOSIS: Right hemiplegia with cavovarus hindfoot. POST-OP DIAGNOSIS: Right hemiplegia with cavovarus hindfoot. OPERATIVE PROCEDURE: Achilles lengthening and posteromedial release. DESCRIPTION OF PROCEDURE: The patient was taken to the operating room where a longitudinal incision was made along the medial border of the Achilles down toward the medial navicular. Through the proximal 6 cm from the incision, we isolated the Achilles tendon, Z-lengthening approximately 5 cm in length was performed. He had a long soleus, which backed up the tendon for length. By dorsiflexing the ankle, we created about a 3- to 4-cm slide of the Achilles. We then opened up the sheath of the posterior tibial tendon, which was released medial navicular and then recessed to a point just below the deltoid where it was sewn into the deltoid with 2-0 Vicryl suture. The FDL tendon was lengthened approximately 4 to 5 cm in length and sewn [id number] in a corrected position. The FHL tendon was isolated in the back of the ankle and released as well as the posterior capsule. All wounds were then irrigated thoroughly, and we closed the retinaculum with interrupted 2-0 Vicryl, subcu with 2-0 Vicryl and holland for the skin. A compression dressing plaster splint was applied. [id number]/[facility] #: [id number] EVELYN
[2018-05-28] MEDS: Atorvastatin* 40 MG TAB PO SCH (20:32)
[2018-05-29] MEDS: Heparin VIAL(*) 5000 UNITS/ML VIAL (FIVE THOUSAND) SUBCUT SCH ×3 (05:39→21:46)
[2018-05-29] MEDS: Acetaminophen TAB* 325 MG PO SCH ×3 (05:41→21:53)
[2018-05-29 05:47] LABS: Hematocrit 24 % (42-52); Hemoglobin 7.8 g/dl (14.0-18.0)
[2018-05-29 06:01] LABS: EGFR Non-African American 99.7 (>60)
[2018-05-29] MEDS: Insulin GLARGINE(*) 1 UNITS UNIT SUBCUT SCH (08:53)
[2018-05-29] MEDS: Insulin LISPRO* 1 UNITS UNIT SUBCUT SCH ×4 (08:53→21:53)
[2018-05-29] MEDS: Metoprolol Tartrate TAB* 25 MG PO SCH ×2 (08:55→21:46)
[2018-05-29] MEDS: guaiFENesin ER TAB 600 MG PO SCH ×2 (08:55→21:45)
[2018-05-29] MEDS: Tamsulosin CAP* 0.4 MG PO SCH (08:56)
[2018-05-29] MEDS: Lactobacillus Acidophilus* 1 TAB PO SCH (08:56)
[2018-05-29] MEDS: Isosorbide Mononitrate ER TAB* 30 MG PO SCH (08:56)
[2018-05-29] MEDS: Docusate CAP* 100 MG PO SCH ×3 (08:56→21:53)
[2018-05-29] MEDS: Multivitamins/Minerals TAB PO SCH (08:56)
[2018-05-29] MEDS: PARoxetine HCL TAB* 20 MG PO SCH (08:57)
[2018-05-29] MEDS: Oxybutynin XL TAB* 5 MG PO SCH (08:57)
[2018-05-29] MEDS: Lisinopril TAB* 10 MG PO SCH (08:57)
[2018-05-29] MEDS: Fluticasone NASAL SPRAY 50MCG* 16 gm SPRAY BTL BOTH NARES SCH (08:57)
[2018-05-29] MEDS: Cetirizine* 10 MG TAB PO SCH (08:57)
[2018-05-29] MEDS: Fluticasone/Vilanterol MDI(NF) 200/25 MDI INH SCH (08:58)
[2018-05-29] MEDS: Pseudoephedrine HCL ER TAB* 120 MG PO SCH ×2 (08:58→10:46)
[2018-05-29] MEDS: RiFAXimin* 550 MG TAB PO SCH ×2 (08:59→21:54)
[2018-05-29] MEDS: Acyclovir* 400 MG TAB PO SCH ×2 (08:59→21:46)
[2018-05-29] MEDS: Magnesium Hydroxide LIQ* 30 ML UDC PO SCH ×2 (09:00→21:54)
[2018-05-29] MEDS ORDERED: Clopidogrel TAB* 75 MG PO SCH (09:00)
[2018-05-29] MEDS: Dexlansoprazole (NF) 60 MG CAP PO SCH (09:01)
[2018-05-29 09:20] LABS: Mean Corpuscular HGB Conc 32 g/dl (31-36); Mean Corpuscular Hemoglobin 20 pg (27-31); Mean Corpuscular Volume 64 fL (80-94); Red Blood Count 3.88 10^6/ul (4.00-5.40); Red Cell Distribution Width 23 % (10.5-15); White Blood Count 6.6 10^3/ul (3.5-10.8)
[2018-05-29 09:47] LABS: ABS Basophils 0 10^3/ul (0-0.2); ABS Eosinophils 0.1 10^3/ul (0-0.6); ABS Lymphocytes 1.2 10^3/ul (1.0-4.8); ABS Monocytes 0.8 10^3/ul (0-0.8); ABS Neutrophils 4.5 10^3/ul (1.5-7.7); ABS Nucleated RBC 0 10^3/ul; Eosinophil % 1.6 %; Lymphocyte % 18.3 %; Mean Platelet Volume 8.9 fL (7.4-10.4); Nucleated Red Blood Cells % 0.3; Platelet Count 94 10^3/ul (150-450)
[2018-05-29 10:23] LABS: INR 1.3 (0.77-1.02)
--- NOTE | 2018-05-29 12:17 | PN ---
Progress Note - Progress Note Date of Service: 05/29/18 SOAP: Subjective: []Patient seen and examined at bedside. He feels well without CP, SOB, dizziness , nausea. No complaints today, RLE mildly painful with improvement from yesterday. He is maintaining his NWB status. Objective: []General: Well appearing, NAD RLE: Dressing CDI, no skin irritation at edges, no erythema proximally. Able to wiggle toes, sensation intact distally, cap refill less than two seconds distally. LLE: Calf supple and nontender without erythema, edema or palpable cords Assessment: []POD 2 s/p right ankle posterior medial release Plan: []NWB operative extremity F/U Dr Petit next week Has bed offer at [facility], anticipate DC tomorrow. Monitor O2 sat, readings as low as 90, now improved, encourage IS Chronic anemia hgb was 8.1 in November 2017, minimal acute losses from surgery less than 10 ml, asymptomatic. Repeat H&H tomorrow Vital Signs Temp 98.9 F 05/29/18 11:17 Pulse 64 05/29/18 11:17 Resp 16 05/29/18 11:17 BP 110/63 05/29/18 11:17 Pulse Ox 96 05/29/18 11:17 Intake & Output 05/28/18 05/29/18 05/29/18 18:59 06:59 18:59 Intake Total 201 440 Output Total 1255 700 300 Balance -1054 -260 -300 Intake: IV Fluids 101 ABX - CEFAZOLIN 55 NS (0.9%) 46 Oral 100 440 Output: Urine 1255 700 300 Laboratory Last Values WBC 6.6 10^3/ul (3.5-10.8) 05/29/18 05:29 RBC 3.88 10^6/ul (4.00-5.40) L 05/29/18 05:29 Hgb 7.8 g/dl (14.0-18.0) L 05/29/18 05:29 Hct 24 % (42-52) L 05/29/18 05:29 MCV 64 fL (80-94) L 05/29/18 05:29 MCH 20 pg (27-31) L 05/29/18 05:29 MCHC 32 g/dl (31-36) 05/29/18 05:29 RDW 23 % (10.5-15) H 05/29/18 05:29 Plt Count 94 10^3/ul (150-450) L 05/29/18 05:29 MPV 8.9 fL (7.4-10.4) 05/29/18 05:29 Neut % (Auto) 68.1 % 05/29/18 05:29 Lymph % (Auto) 18.3 % 05/29/18 05:29 [place] % (Auto) 11.4 % 05/29/18 05:29 Eos % (Auto) 1.6 % 05/29/18 05:29 Baso % (Auto) 0.6 % 05/29/18 05:29 Absolute Neuts (auto) 4.5 10^3/ul (1.5-7.7) 05/29/18 05:29 Absolute Lymphs (auto) 1.2 10^3/ul (1.0-4.8) 05/29/18 05:29 Absolute Monos (auto) 0.8 10^3/ul (0-0.8) 05/29/18 05:29 Absolute Eos (auto) 0.1 10^3/ul (0-0.6) 05/29/18 05:29 Absolute Basos (auto) 0 10^3/ul (0-0.2) 05/29/18 05:29 Absolute Nucleated RBC 0 10^3/ul 05/29/18 05:29 Nucleated RBC % 0.3 05/29/18 05:29 INR (Anticoag Therapy) 1.30 (0.77-1.02) H 05/29/18 09:54 APTT 31.8 seconds (26.0-36.3) 05/29/18 09:54 Sodium 138 mmol/L (135-145) 05/29/18 05:29 Potassium 4.1 mmol/L (3.5-5.0) 05/29/18 05:29 Chloride 110 mmol/L (101-111) 05/29/18 05:29 Carbon Dioxide 25 mmol/L (22-32) 05/29/18 05:29 Anion Gap 3 mmol/L (2-11) 05/29/18 05:29 BUN 18 mg/dL (6-24) 05/29/18 05:29 Creatinine 0.79 mg/dL (0.67-1.17) 05/29/18 05:29 Est GFR ( Amer) 120.7 (>60) 05/29/18 05:29 Est GFR (Non-Af Amer) 99.7 (>60) 05/29/18 05:29 BUN/Creatinine Ratio 22.8 (8-20) H 05/29/18 05:29 Glucose 122 mg/dL (70-100) H 05/29/18 05:29 POC Glucose (mg/dL) 319 mg/dL (70-100) H 05/29/18 11:42 Calcium 8.7 mg/dL (8.6-10.3) 05/29/18 05:29
[2018-05-29] MEDS: Ibuprofen TAB* 400 MG PO PRN ×2 (14:19→21:46)
--- NOTE | 2018-05-29 17:45 | PN ---
Subjective Date of Service: 05/29/18 Interval History: Pt had been refusing lab draws an figersticks. Has no complaints. Awaiting placement Objective Active Medications: Acetaminophen (Tylenol Tab*) 975 mg PO Q8HR [facility] Last Admin: 05/29/18 14:21 Dose: Not Given Acyclovir (Zovirax Tab*) 400 mg PO BID [facility] Last Admin: 05/29/18 08:59 Dose: 400 mg Albuterol (Ventolin Hfa Inhaler*) 2 puff INH Q4H PRN PRN Reason: SOB/WHEEZING Atorvastatin Calcium (Lipitor*) 40 mg PO BEDTIME [facility] Last Admin: 05/28/18 20:32 Dose: 40 mg Cetirizine HCl (Zyrtec*) 10 mg PO QAM [facility] Last Admin: 05/29/18 08:57 Dose: 10 mg Clopidogrel Bisulfate (Plavix Tab*) 75 mg PO EVERY OTHER DAY [facility] Last Admin: 05/29/18 08:56 Dose: 75 mg Cyclobenzaprine HCl (Flexeril Tab*) 5 mg PO Q8H PRN PRN Reason: MUSCLE SPASMS Last Admin: 05/28/18 10:19 Dose: 5 mg Dexlansoprazole (Dexilant (Nf)) 60 mg PO QAM [facility] Last Admin: 05/29/18 09:01 Dose: Not Given Dextrose (D50w Syringe 50 Ml*) 12.5 gm IV PUSH .FOR FS < 60 - SS PRN PRN Reason: FS < 60 Docusate Sodium (Colace Cap*) 100 mg PO BID [facility] Last Admin: 05/29/18 10:43 Dose: Not Given Fluticasone Propionate (Flonase Nasal [place] 50mcg*) [facility] Last Admin: 05/29/18 08:57 Dose: 2 spray Fluticasone/Vilanterol (Breo Ellipta Mdi 200/25(Nf)) 1 puff INH QAM [facility] Last Admin: 05/29/18 08:58 Dose: Not Given Guaifenesin (Mucinex*) 1,200 mg PO BID [facility] Last Admin: 05/29/18 08:55 Dose: 1,200 mg Heparin Sodium (Porcine) (Heparin Vial(*)) 5,000 units SUBCUT Q8HR [facility] Last Admin: 05/29/18 14:18 Dose: 5,000 units Ibuprofen (Motrin Tab*) 400 mg PO Q6H PRN PRN Reason: PAIN Last Admin: 05/29/18 14:19 Dose: 400 mg Insulin Glargine (Lantus(*)) 10 units SUBCUT Q24H [facility] Last Admin: 05/29/18 08:53 Dose: 10 units Insulin Human Lispro (Humalog*) 0 units SUBCUT [facility]; Protocol Last Admin: 05/29/18 13:16 Dose: 8 units Isosorbide Mononitrate (Imdur Er Tab*) 30 mg PO [facility] Last Admin: 05/29/18 08:56 Dose: 30 mg Lactobacillus Rhamnosus (Lactobacillus Acidophilus*) 1 tab PO DAILY [facility] Last Admin: 05/29/18 08:56 Dose: 1 tab Lisinopril (Prinivil Tab*) 40 mg PO [facility] Last Admin: 05/29/18 08:57 Dose: 40 mg Loperamide HCl (Imodium Cap*) 4 mg PO .SEE INSTRUCTIONS PRN PRN Reason: LOOSE STOOLS Magnesium Hydroxide (Milk Of Magnesia Liq*) 30 ml PO BID [facility] Last Admin: 05/29/18 09:00 Dose: Not Given Magnesium Hydroxide (Milk Of Magnesia Liq*) 30 ml PO Q6H PRN PRN Reason: constipation Metoprolol Tartrate (Lopressor Tab*) 25 mg PO BID [facility] Last Admin: 05/29/18 08:55 Dose: 25 mg Morphine Sulfate (Morphine Vial*) 2 mg IV Q2H PRN PRN Reason: PAIN Last Admin: 05/27/18 14:36 Dose: 2 mg Multivitamins/Minerals (Theragran/Minerals Tab*) 1 tab PO [facility] Last Admin: 05/29/18 08:56 Dose: 1 tab Ondansetron HCl (Zofran Inj*) 4 mg IV Q6H PRN PRN Reason: nausea Oxybutynin Chloride (Ditropan Xl Tab*) 15 mg PO [facility] Last Admin: 05/29/18 08:57 Dose: 15 mg Oxycodone HCl (Roxycodone Tab*) 5 mg PO Q4H PRN PRN Reason: PAIN - MODERATE Oxycodone HCl (Roxycodone Tab*) 10 mg PO Q4H PRN PRN Reason: PAIN - SEVERE Paroxetine HCl (Paxil Tab*) 20 mg PO QAM [facility] Last Admin: 05/29/18 08:57 Dose: 20 mg Pseudoephedrine HCl (Sudafed 12 Hour*) 240 mg PO DAILY [facility] Last Admin: 05/29/18 10:46 Dose: Not Given Rifaximin (Xifaxan*) 550 mg PO BID [facility] Last Admin: 05/29/18 08:59 Dose: 550 mg Tamsulosin HCl (Flomax Cap*) 0.8 mg PO QAM [facility] Last Admin: 05/29/18 08:56 Dose: 0.8 mg Trazodone HCl (Desyrel Tab*) 25 mg PO BEDTIME PRN PRN Reason: insomnia Vital Signs - 8 hr 05/29/18 05/29/18 11:17 15:48 Temperature 98.9 F 98.6 F Pulse Rate 64 65 Respiratory 16 22 Rate Blood Pressure 110/63 99/55 (mmHg) O2 Sat by Pulse 96 97 Oximetry Oxygen Devices in Use Now: None Appearance: 62 yo M in nAD, AAOx2 Eyes: No Scleral Icterus, PERRLA Ears/Nose/Mouth/Throat: NL Teeth, Lips, Gums, Mucous Membranes Moist Neck: NL Appearance and Movements; NL JVP, Trachea Midline Respiratory: Symmetrical Chest Expansion and Respiratory Effort, Clear to Auscultation Cardiovascular: NL Sounds; No Murmurs; No JVD Abdominal: NL Sounds; No Tenderness; No Distention Lymphatic: No Cervical Adenopathy Extremities: No Edema, No Clubbing, Cyanosis Skin: No Nodules or Sclerosis, - - R foot in post op dressings Neurological: - - R arm contracted, mild R facial droop Result Diagrams: 05/29/18 05:29 05/29/18 05:29 Assess/Plan/Problems-Billing Assessment: 62 yo M with h/o CAD, CADET, R hemiparesis, DM2, s/p R foot tendon release for contraction now awaiting placement . Medicine consult - Patient Problems (1) H/O foot surgery Comment: by on 05/17/18 plan for DION (2) CAD (coronary artery disease) Comment: Asymptomatic Continue metoprolol, atorvastatin, isosorbide, plavix Not on aspirin. (3) COPD (chronic obstructive pulmonary disease) Comment: No signs of exacerbation (4) CVA (cerebral vascular accident) Comment: Old CVA with R hemiparesis Per the [facility], he was ambulatory at baseline with a cane plan for DION (5) Diabetes Comment: restarted Lantus and cont Lispro SS Hold Januvia and metformin, resume at discharge. (6) HTN (hypertension) Comment: BP well controlled. Continue home metoprolol and lisinopril (7) Microcytic anemia Comment: mild post op worsening of chronic Baseline Hb at 8, will monitor if pt allows for more bloodwork. No signs or symptoms of bleeding, melena, BRPPR. Pt should have outpatient colonoscopy to eval further. (8) DVT prophylaxis Comment: HSQ
[2018-05-29] MEDS: Atorvastatin* 40 MG TAB PO SCH (21:46)
[2018-05-30] MEDS: Heparin VIAL(*) 5000 UNITS/ML VIAL (FIVE THOUSAND) SUBCUT SCH (05:59)
[2018-05-30] MEDS: Ibuprofen TAB* 400 MG PO PRN (05:59)
[2018-05-30] MEDS: Acetaminophen TAB* 325 MG PO SCH (06:02)
[2018-05-30] MEDS: Insulin LISPRO* 1 UNITS UNIT SUBCUT SCH ×2 (09:22→11:48)
[2018-05-30] MEDS: Insulin GLARGINE(*) 1 UNITS UNIT SUBCUT SCH (09:26)
[2018-05-30] MEDS: Oxybutynin XL TAB* 5 MG PO SCH ×2 (09:27→09:32)
[2018-05-30] MEDS: Metoprolol Tartrate TAB* 25 MG PO SCH (09:28)
[2018-05-30] MEDS: Multivitamins/Minerals TAB PO SCH (09:30)
[2018-05-30] MEDS: Lisinopril TAB* 10 MG PO SCH (09:30)
[2018-05-30] MEDS: Isosorbide Mononitrate ER TAB* 30 MG PO SCH (09:35)
[2018-05-30] MEDS: Tamsulosin CAP* 0.4 MG PO SCH (09:36)
[2018-05-30] MEDS: RiFAXimin* 550 MG TAB PO SCH (09:37)
[2018-05-30] MEDS: Pseudoephedrine HCL ER TAB* 120 MG PO SCH (09:37)
[2018-05-30] MEDS: guaiFENesin ER TAB 600 MG PO SCH (09:37)
[2018-05-30] MEDS: Acyclovir* 400 MG TAB PO SCH (09:39)
[2018-05-30] MEDS: PARoxetine HCL TAB* 20 MG PO SCH (09:41)
[2018-05-30] MEDS: Cetirizine* 10 MG TAB PO SCH (09:41)
[2018-05-30] MEDS: Fluticasone NASAL SPRAY 50MCG* 16 gm SPRAY BTL BOTH NARES SCH (09:41)
[2018-05-30] MEDS: Lactobacillus Acidophilus* 1 TAB PO SCH (09:41)
[2018-05-30] MEDS: Dexlansoprazole (NF) 60 MG CAP PO SCH (09:52)
[2018-05-30] MEDS: Docusate CAP* 100 MG PO SCH (09:52)
[2018-05-30] MEDS: Magnesium Hydroxide LIQ* 30 ML UDC PO SCH (09:53)
[2018-05-30] MEDS: Fluticasone/Vilanterol MDI(NF) 200/25 MDI INH SCH (09:53)
--- NOTE | 2018-05-30 10:14 | PN ---
Progress Note - Progress Note Date of Service: 05/30/18 SOAP: Subjective: []Patient seen and examined at bedside. He feels well without SOB, CP, dizziness , nausea. He refused any bloodwork this morning and again before discharge when I discussed the rationale for the testing with him. Objective: []General: Well appearing, NAD RLE: Dressing CDI, no skin irritation at edges, no erythema proximally. Able to wiggle toes, sensation intact distally, cap refill less than two seconds distally. LLE: Calf supple and nontender without erythema, edema or palpable cords Assessment: []POD 3 s/p right ankle posterior medial release Plan: []NWB operative extremity F/U Dr Petit next week DC to [facility] today Chronic anemia hgb was 8.1 in November 2017, minimal acute losses from surgery less than 10 ml, asymptomatic. Repeat H&H as an outpatient and follow up with PCP - medicine recommends outpatient colonoscopy for chronic anemia O2 sat improved today Vital Signs Temp 98.3 F 05/30/18 07:31 Pulse 65 05/30/18 07:31 Resp 16 05/30/18 08:00 BP 135/67 05/30/18 07:31 Pulse Ox 96 05/30/18 07:31 Intake & Output 05/29/18 05/30/18 05/30/18 18:59 06:59 18:59 Intake Total 470 780 Output Total 700 350 0 Balance -230 430 0 Intake: Oral 470 780 Output: Urine 700 350 0 Other: # Bowel Movements 0
--- NOTE | 2018-05-30 11:30 | DS ---
AMENDED REPORT NOW INCLUDES DESIGNATED COSIGNER DATE OF ADMISSION: 05/27/2018. DATE OF DISCHARGE: 05/30/2018. PROVIDER: Dr. Jer Petit * (dictated by DENY Fields). PREOPERATIVE DIAGNOSIS: Right hemiplegia with cavovarus hind foot. OPERATIVE PROCEDURE: Achilles lengthening and posteromedial release. HISTORY: Mr. Petit is a 62-year-old male with a history of right hemiplegia with cavovarus hind foot. He elected to undergo an Achilles lengthening and posteromedial release. HOSPITAL COURSE: The patient was admitted to [facility] on 2017. He underwent an Achilles lengthening and posteromedial release without complication. He recovered briefly in the PACU and was transferred to the Short Stay Surgical Unit. Postop day one, he was well-appearing and in no acute distress. He was refusing fingersticks to monitor his glucose and was occasionally yelling per nursing notes. When seen by myself, he was well- appearing and in no acute distress. Dressing was clean, dry, and intact. No irritation at skin edges. No erythema proximally. Able to wiggle toes. Sensation intact distally. Cap refill less than two seconds distally. Due to his nonweightbearing status, he was unable to return to [facility]. Rehab placement is needed. Postop day two, his exam is unchanged. He was noted to have a hemoglobin of 7.8 , hematocrit of 24. The patient is chronically anemic with hemoglobins in the 8 's. He had approximately 10 cc of blood loss during surgery. This was addressed by Medicine. Per report, he has no signs or symptoms of bleeding, melena, bright red blood per rectum and recommends an outpatient colonoscopy for further evaluation. The patient's vital signs were stable and he was asymptomatic with his level of anemia. Postop day three, he is well-appearing and in no acute distress. Unchanged exam. He is refusing to have a repeat H and H this morning. He will be discharged to [facility] today. The only change in his medications will be that his Lantus dose will be decreased to 10 units. Vital signs: Temperature 98.3, pulse 65, respiratory rate 16, blood pressure 135/67, pulse ox is 96. The patient is deemed to be medically and orthopedically stable for discharge to [facility]. DISCHARGE MEDICATIONS: 1. Albuterol inhaler two puffs inhaled q.4 hours prn. 2. Atorvastatin 40 mg p.o. at bedtime. 3. Plavix 75 mg p.o. every other day. 4. Mucinex 1200 mg p.o. b.i.d. 5. Imdur ER 30 mg p.o. q.a.m. 6. Lisinopril 40 mg p.o. q.a.m. 7. Claritin D 24 hour tab one tab p.o. q.a.m. 8. Metformin 1,000 mg p.o. b.i.d. 9. Metoprolol 25 mg p.o. b.i.d. 10. Multivitamin one tab p.o. q.a.m. 11. Oxybutynin 15 mg p.o. q.a.m. 12. Paroxetine 20 mg p.o. q.a.m. 13. Acidophilus 175 mg p.o. daily capsule. 14. Rifaximin 550 mg p.o. b.i.d. 15. Januvia 100 mg p.o. q.a.m. 16. Acyclovir 400 mg p.o. b.i.d. 17. Insulin Lispro 100 units per cartridge one dose subcu t.i.d. a.c. prn. 18. Ibuprofen 400 mg p.o. q.6 hours prn. 19. Tamsulosin two caps p.o. q.a.m. 20. Tramadol 50 mg p.o. q.6 hours prn. 21. Dexilant 60 mg capsule one cap p.o. q.a.m. 22. Loperamide two caps per instructions prn. 23. Breo Ellipta 200-25 mcg inhaled one puff inhaled q.a.m. 24. Flonase nasal spray 50 mcg two sprays both nares q.a.m. 25. Robitussin 10 mg p.o. q.4 hours prn. 26. Neosporin ointment 28.3 gm ointment application topically q.i.d. prn. Discontinue Insulin Lantus 22 units subcu at bedtime. This is changed to 10 units subcu at bedtime. Breo Ellipta 200-25 mcg two puffs inhaled daily. Aspirin 325 mg p.o. daily. Oxycodone 10 mg p.o. q.4 hours prn. Oxycodone 5 mg p.o. q.4 hours prn. Acetaminophen 975 mg p.o. q.8 hours prn. Docusate 100 mg p.o. b.i.d. prn. DISCHARGE PLAN: The patient will be discharged to [facility]. He will be nonweightbearing on his operative extremity. He is to keep the splint clean, dry and intact. Follow-up with Dr. Petit next week, call for an appointment at . The patient has chronic anemia. Hemoglobin was 8.1 in November of 2017; he was 7.8 on May 29, though he refused to have a repeat H and H on May 30. His vital signs were stable and he was asymptomatic. He had minimal acute blood loss from surgery at less than 10 ml reported. I would recommend repeating H and H on May 31 as an outpatient and follow-up with his primary care provider. He was seen by Medicine during his stay who recommends an outpatient colonoscopy for his chronic anemia. Please take aspirin 325 mg p.o. daily until lower extremity is no longer immobilized. Please discuss this with Dr. Petit at your postop visit to determine when you can discontinue. Resume home medications with the exception of decreased Lantus dose to 10 units rather than 22 units. DENY SPIVEY [id number]/[place] #: [id number] [facility]
[2018-05-30 11:47] VITALS: BP 103/53
== END 2018-05-30 12:45 | DRG 504 ==
LOC: OR 07:32 → SSU 14:30 → OBSVTOIN 14:30 → INTOOBSV 14:30 → SSU 05-28 12:27
PROVIDERS: ADMIT Orthopaedic Surgery; ATTEND Orthopaedic Surgery
PROC: 0L8N0ZZ Division of Right Lower Leg Tendon, Open Approach (ICD-10-PCS; principal; 2018-05-27 09:00)
DX: Q66.1 Congenital talipes calcaneovarus (principal); I69.351 Hemiplegia and hemiparesis following cerebral infarction affecting right dominant side; N40.0 Benign prostatic hyperplasia without lower urinary tract symptoms; E11.9 Type 2 diabetes mellitus without complications; I10 Essential (primary) hypertension; I25.10 Atherosclerotic heart disease of native coronary artery without angina pectoris; E78.5 Hyperlipidemia, unspecified; D50.9 Iron deficiency anemia, unspecified; K74.60 Unspecified cirrhosis of liver; N52.9 Male erectile dysfunction, unspecified; E03.9 Hypothyroidism, unspecified; M24.574 Contracture, right foot; J44.9 Chronic obstructive pulmonary disease, unspecified; K21.9 Gastro-esophageal reflux disease without esophagitis; Z95.1 Presence of aortocoronary bypass graft; Z79.02 Long term (current) use of antithrombotics/antiplatelets; Z82.49 Family history of ischemic heart disease and other diseases of the circulatory system; Z79.4 Long term (current) use of insulin
CPT/HCPCS: 36415; 80048; 85025; 85610; 85730; A9270-GY; G8978-GP-CL; G8979-GP-CI; G8987-GO-CL; G8988-GO-CI; J0690; J1100; J1644; J2001; J2250; J2270; J2405; J2704; J3010

== ENCOUNTER 2018-11-07 15:00 | Observation (INO) | payer MEDICARE, MEDICAID ==
[~2018-11-07 15:00] MED LIST changes: -Buffered Lidocaine 0.9% SYRIN* 5 ML/SYR SYRINGE INTRADERM ONE; +Buffered Lidocaine 1% SYRIN* 1 ML/SYRINGE INTRADERM ONE; +Lactated Ringers 1000 ML Bag* 1,000 ML IV SCH
[2018-11-07] MEDS ORDERED: Famotidine IV* 10 MG/ML 2 ML (20 mg) ONE (15:20)
[2018-11-07] MEDS ORDERED: Buffered Lidocaine 1% SYRIN* 1 ML/SYRINGE INTRADERM ONE (15:20)
[2018-11-07] MEDS ORDERED: ceFAZolin 2 GM PREMIX in ORs 2 GM/50 ML BAG IVPB ONE (15:20)
[2018-11-07] MEDS ORDERED: fentaNYL* 50 MCG/ML 2 ML VIAL (100 MCG VIAL) ONE ×2 (17:38→18:19)
[2018-11-07] MEDS ORDERED: Propofol* 10 MG/ML 20 ML BTL ONE (17:38)
[2018-11-07] MEDS ORDERED: Ondansetron INJ* 2 MG/ML VIAL ONE (17:38)
[2018-11-07] MEDS ORDERED: Dexamethasone IV* 4 MG/ML 1 ML (4 MG) ONE (17:38)
[2018-11-07] MEDS ORDERED: Lidocaine 2% PF * 5 ML VIAL ONE (17:38)
[2018-11-07] MEDS ORDERED: Midazolam* 1 MG/ML 5 ML VIAL (5 MG) ONE (17:39)
[2018-11-07] MEDS ORDERED: Phenylephrine 40 MCG/ML SYRINGE ONE (17:39)
[2018-11-07] MEDS ORDERED: Midazolam concentrated* 5 MG/ML 1 ml VIAL ONE (17:46)
[2018-11-07] MEDS ORDERED: EPHEDrine (Pressors)* 50 MG/ML VIAL ONE (18:11)
[2018-11-07] MEDS ORDERED: Acetaminophen IV 1GM/100ML * 1,000 MG/100 ML VIAL IVPB ONE (19:45)
[2018-11-07] MEDS ORDERED: HYDROmorphone INJ1* 1 MG/ML SYRINGE IV PRN (19:45)
[2018-11-07] MEDS ORDERED: Naloxone* 0.4 MG/ML 1 ML VIAL IV PRN (19:45)
[2018-11-07] MEDS ORDERED: DiMENhydriNATE IV* 50 MG/ML VIAL IV PUSH PRN (19:45)
[2018-11-07] MEDS ORDERED: Bupivacaine 0.25% SDV PF* 10 ML VIAL INJ ONE (19:58)
[2018-11-07] MEDS ORDERED: Ketorolac INJ* 30 MG/ML 1 ML VIAL ONE (20:12)
[2018-11-07] MEDS ORDERED: Magnesium Hydroxide LIQ* 30 ML UDC PO PRN (20:21)
[2018-11-07] MEDS ORDERED: traMADol TAB* 50 MG PO PRN ×3 (20:21→20:34)
[2018-11-07] MEDS ORDERED: Acetaminophen IV 1GM/100ML * 100 ML ONE (20:26)
[2018-11-07] MEDS ORDERED: Morphine INJ* 2 MG/ML 1 ML SYRINGE (TWO MG - NEW SYRINGE VERSION) IV PRN (20:27)
[2018-11-07] MEDS ORDERED: Ondansetron INJ* 2 MG/ML VIAL IV PRN (20:27)
[2018-11-07] MEDS ORDERED: Ondansetron ODT TAB* 4 MG PO PRN (20:27)
[2018-11-07] MEDS ORDERED: diPHENhydraMINE PO* 25 MG PO PRN (20:27)
[2018-11-07] MEDS ORDERED: INSULIN LISPRO SUBCUT PRN (20:29)
[2018-11-07] MEDS ORDERED: Loperamide CAP* 2 MG PO PRN (20:29)
[2018-11-07] MEDS ORDERED: Albuterol HFA INHALER* 8 gm MDI INH PRN (20:29)
[2018-11-07] MEDS ORDERED: Ibuprofen TAB* 200 MG PO PRN (20:29)
[2018-11-07] MEDS ORDERED: Lactated Ringers 1000 ML Bag* 1,000 ML IV SCH (21:00)
[2018-11-07] MEDS ORDERED: Insulin GLARGINE(*) 1 UNITS UNIT SUBCUT SCH ×2 (21:00→23:00)
[2018-11-07] MEDS ORDERED: Atorvastatin* 40 MG TAB PO SCH (21:00)
[2018-11-07] MEDS ORDERED: Dextrose 50% Syringe 50 ML* 25 GM/50 ML SYRINGE IV PUSH PRN (21:23)
[2018-11-07] MEDS ORDERED: Insulin LISPRO* 1 UNITS UNIT SUBCUT SCH (22:00)
--- NOTE | 2018-11-07 23:42 | CONS ---
CC: Dr. Freedman; Dr. Vital* CONSULTATION REPORT: DATE OF CONSULT: 11/07/18 CONSULTING PHYSICIAN: Dr. Vital, orthopedic surgery. PRIMARY CARE PHYSICIAN: Dr. Freedman. ATTENDING PHYSICIAN: Dr. Violeta Bear (dictated by DENY Johnston). REASON FOR CONSULT: Co-management of chronic medical conditions. HISTORY OF PRESENT ILLNESS: Shawn Petit is a 63-year-old white male with past medical history significant for diabetes mellitus type 2, CVA with residual right hemiplegia; contractures; and spasticity, cirrhosis, coronary artery disease; status post CABG, depression, anxiety who presented for elective right hand surgery today with Dr. Vital for tendon lengthening and intrinsic release. The patient has suffered contractures of his right hand and feet since experiencing CVA in 2014. The patient will be admitted to the hospital overnight due to postoperative sedation and lack of safety to return home in this state. Hospital Medicine was asked to consult for co-management of chronic medical conditions. At the time of evaluation, the patient is feeling well. He has no complaints. He answers questions appropriately. He denies chest pain, shortness of breath, abdominal pain, nausea, vomiting, and fevers or chills. PAST MEDICAL HISTORY: 1. Diabetes mellitus type 2. 2. 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 3. Nonalcoholic liver cirrhosis. 4. Depression. 5. Anxiety. 6. GERD. 7. Hypertension. 8. Coronary artery disease, status post CABG. 9. Hyperlipidemia. 10. Arthritis. 11. Hypothyroidism. 12. Asthma. PAST SURGICAL HISTORY: 1. Tonsillectomy. 2. Hernia repair. 3. CABG. 4. Achilles lengthening surgery. HOME MEDICATIONS: 1. Imodium 2 tabs p.o. p.r.n. 2. Dexilant 60 mg p.o. daily. 3. Rifaximin 550 mg p.o. b.i.d. 4. Insulin Humalog t.i.d. per sliding scale. 5. Albuterol 108 mcg inhaler 2 puffs p.r.n. for shortness of breath or wheezing. 6. Breo Ellipta 200 mcg/25 mcg 1 puff inhaled daily. 7. Lisinopril 40 mg p.o. daily. 8. Imdur 30 mg p.o. daily. 9. Tums 500 mg p.o. p.r.n. for dyspepsia. 10. Acyclovir 400 mg p.o. b.i.d. 11. Tamsulosin 0.4 mg p.o. daily. 12. Oxybutynin 15 mg p.o. daily. 13. Mucinex 600 mg p.o. q.12 hours p.r.n. for congestion. 14. Acidophilus 100 mg p.o. p.r.n. 15. Multivitamin p.o. daily. 16. Advil 400 mg p.o. q.6 hours p.r.n. for pain. 17. Lantus 22 units daily at bedtime. 18. Plavix 75 mg p.o. daily. 19. Metformin 1000 mg p.o. daily. 20. Metoprolol tartrate 25 mg b.i.d. 21. Fluticasone 50 mcg nasal spray 2 sprays in each nostril daily. 22. Lipitor 40 mg p.o. daily. 23. Paxil 20 mg p.o. daily. ALLERGIES: No known drug allergies. FAMILY HISTORY: His mother is and her medical history is unknown to the patient. Father is and he had a history of hypertension. SOCIAL HISTORY: The patient has 1 son. He is . He lives in [facility] in [place]. He never smoked. Denies current drug and alcohol use. REVIEW OF SYSTEMS: An 11-point review of systems was completed and all pertinent positives and negatives are as above in the HPI. All other systems are negative. PHYSICAL EXAM: General: Thin white male, appears older than stated age, lying comfortably on PACU stretcher, appearing in no acute distress. Head: Normocephalic, atraumatic. Eyes: PERRL. Sclerae anicteric. EOMI. ENT: Mucous membranes moist. Neck: No JVD. Cardio: Regular rate and rhythm with grade 1 systolic murmur auscultated. Lungs: Clear to auscultation. Abdomen: Abdomen is soft, nontender, nondistended without masses palpated. Extremities: No clubbing, edema, or cyanosis. Right upper extremity in dressing. Neuro: The patient is alert and oriented x3. No focal deficits. Skin: Skin is warm, diaphoretic, intact. No rashes or ecchymosis. DIAGNOSTIC STUDIES/LAB DATA: None to report from this hospitalization. ASSESSMENT AND PLAN: Shawn Petit is a 63-year-old white male with past medical history significant for coronary artery disease; status post coronary artery bypass grafting, diabetes mellitus type 2, status post stroke with residual hemiplegia and contractures, nonalcoholic cirrhosis, hypertension, asthma, depression, anxiety, and gastroesophageal reflux disease who is status post right hand tendon lengthening with Dr. Vital. Hospital Medicine is consulted for co-management of chronic medical conditions. 1. Systolic murmur. There is no note of systolic murmur on preop evaluation from the patient's primary care provider; however, echocardiogram in 2018 demonstrates mild tricuspid regurgitation, mild mitral regurgitation with ejection fraction of 50% to 55%. No need for further evaluation at this time. 3. Diabetes mellitus type 2. Holding the patient's home metformin. The patient takes 22 units of Lantus at home. We will give 15 units at bedtime. The patient uses sliding scale Humalog at home and we will continue our hospital lispro sliding scale a.c. with fingersticks a.c., h.s., and a carb consistent diet. 3. Coronary artery disease, status post coronary artery bypass grafting. Continue the patient's home Imdur, metoprolol, lisinopril, and Plavix. It does not appear the patient takes home aspirin. Holding parameters for systolic blood pressure less than 150 for the lisinopril. Continue home Lipitor as well. 4. Nonalcoholic liver cirrhosis. Continue home rifaximin. 5. History of stroke. Continue home Plavix. As previously mentioned, the patient does not take aspirin at home. 6. Hypertension. Continue lisinopril and Imdur as described above. 7. Hypothyroidism. It does not appear the patient takes Synthroid at home. We will check TSH in the morning. 8. Asthma. Continue the patient's home rescue inhaler and a formulary version of Breo Ellipta. 9. Gastroesophageal reflux disease. The patient takes dexlansoprazole at home. We will continue formulary PPI while inpatient. 10. Depression, anxiety. Continue the patient's home Paxil. 11. Status post right hand surgery. Management per orthopedic surgery. 12. DVT prophylaxis. The patient currently receiving SCDs. Management per orthopedic surgery. 13. Disposition: Per orthopedic surgery. 14. Code status: Full code. Thank you for allowing us to participate in the care of this patient. We will follow during this admission. DENY JOHNSTON [id number]/[facility] #: [id number] EVELYN
[2018-11-08] MEDS: RiFAXimin* 550 MG TAB PO SCH ×2 (00:31→09:55)
[2018-11-08] MEDS: guaiFENesin ER TAB 600 MG PO SCH ×2 (00:31→09:54)
[2018-11-08] MEDS: Metoprolol Tartrate TAB* 25 MG PO SCH ×2 (00:31→09:55)
--- NOTE | 2018-11-08 02:01 | OP ---
OPERATIVE REPORT: DATE OF OPERATION: 11/07/18 - Inpatient, room 342-01 DATE OF : 57 SURGEON: Jer Vital MD [facility] SUPERVISOR: DENY Fields An child center assistant was needed for the entirety of the procedure to aid in positioning of the arm and retraction. ANESTHESIOLOGIST: Dr. Mario followed by Dr. He. ANESTHESIA: General. PRE-OP DIAGNOSIS: Right hand spasticity and contracture secondary to prior cerebrovascular accident that occurred over 3 years ago. POST-OP DIAGNOSIS: Right hand spasticity and contracture secondary to prior cerebrovascular accident that occurred over 3 years ago. OPERATIVE PROCEDURE: 1. Right hand intrinsic releases with intraosseous slide of the dorsal and palmar interossei. 2. Right flexor pollicis longus tendon fractional lengthening. 3. Right index, middle, ring, and small finger flexor digitorum superficialis tendons fractional lengthening. 4. Right index, middle, ring and small finger flexor digitorum profundus tendons fractional lengthening. 5. Right flexor carpi ulnaris to extensor digitorum communis tendon transfer. 6. Right flexor carpi ulnaris to extensor pollicis longus tendon transfer. INDICATIONS: Shawn is 63 years old. He has a sensate hand and he has some volitional control. He has active flexion, extension. He is able to generate excellent strength with weed eradicator. He has difficulty opening the hand. He has significant intrinsic tightness, which limits his ability to extend the MP joints. He has active, but weak extension through the EDC and EPL tendons. He certainly has other contractures in the arm, however, these are the main contractures that I thought that we could improve the most to give him improved function in the hand. He understands the risk of flexion weakness with tendon lengthening. He also understands the chance of neurovascular to other injury. He did need to stay on his Plavix for the procedure due to cardiology reasons. He is also a diabetic. ESTIMATED BLOOD LOSS: 10 mL. COMPLICATIONS: None. FINDINGS: See above and below. DESCRIPTION OF PROCEDURE: Shawn was seen in the preoperative holding area. The correct site, side, and procedures were identified. We came back to the operating room. The arm was prepped and draped in the usual fashion and a time- out was performed. The arm was exsanguinated with the Esmarch and the tourniquet was inflated to 225 mmHg. I first made a transverse incision over the mid aspect of the metacarpals dorsally. Dissection was carried down. The extensor tendons were retracted out of the way. I first performed in intraosseous side by releasing the origin of the dorsum, palmar interossei between the middle and the ring finger bones. I then did the same between the index and the middle fingers and then I went to the interspace between the ring finger and the small fingers. I did not release the interosseous origin in the first webspace. I did lengthen the hypothenar tendons somewhat as well. Great care was taken to make sure both the dorsal and palmar interossei were released. After release, the Baldev intrinsic tightness test was markedly improved. The wounds were then irrigated out and the skin was closed with 4-0 nylon suture. I then made a longitudinal incision over the FCR tendon in the mid aspect of the forearm; it was about an 8-cm incision. Dissection was carried down, the FPL tendon was retracted out of the way. The FDS and FDP tendons as well as the FPL tendon were all identified. The median nerve was identified and protected. The radial artery and ulnar neurovascular bundle were identified and protected. I first did a fractional lengthening of the FDS index finger tendon by coming about a centimeter and a half proximal to the musculocutaneous junction and performing 2 tenotomies obliquely through the tendon. In similar fashion, I did a fractional lengthening of the FDS middle finger, and then the FDS ring finger, and lastly the FDS small finger. I then performed in similar fashion, a fractional lengthening of the index finger FDP tendon, followed by the middle finger FDP tendon, followed by the ring finger FDP tendon, followed by the small finger FDP tendon. I then performed a similar fractional lengthening to the FPL tendon with 2 oblique tenotomies well proximal to the musculotendinous junction. After I had done the fractional lengthening, the Volkmann angle was markedly improved and I could fully extend the wrist and keep the fingers pretty much straight. Lastly, I went ahead and made a V-shaped incision over the distal aspect of my FCU tendon and released the FCU tendon where it attaches to the pisiform bone. The adhesions distally were released. The tendon was pulled back up into my proximal wound. I released some of the muscle belly until I had enough tendon length so I could create a subcutaneous tunnel and bring the tendon dorsally around the EDC tendons. I had marked out over the skin where the tendon would come and then I made a longitudinal incision about 5 cm long over that area. The fascia was split over the EDC tendons. I went ahead and set normal cascade and then sewed all 4 EDC tendons together [id number] with a 3-0 Ethibond suture. Next, I dissected out my EPL tendon. I went ahead and set the appropriate cascade in tension and then sewed my FPL tendon to the EDC tendons. I then tunneled my FCU tendon subcutaneously and performed a 3-weave Pulvertaft weave weaving the FCU into the tendon mass. I did my first pass with a tendon passer and then sutured it where I thought was the appropriate tension, tensioned it with the wrist in gentle extension and the MP joints in extension. The IP joint was in extension as well. I was in gentle flexion. I checked the tension and with tenodesis, the fingers still bent when I had full wrist extension, but the MP joints and IP joints came out fully straight when I flexed the wrist. I therefore did my last 2 passes and sutured it down with multiple 3-0 Ethibond sutures. At this point, everything was looking very good. I irrigated out all the wounds. I let down the tourniquet. We made sure there was no significant bleeding. The wounds were irrigated out. I closed the dorsal wound first with holland. The volar forearm wound was closed with a combination of holland and nylon and then the distal wound near the pisiform was closed with nylon. 30 mL of Marcaine was infiltrated all around the operative area. The wounds were dressed and well-padded and then a very loose short arm splint with the wrist in gentle extension and the MP joints in extension and the IP joints out straight was applied. He was taken to the recovery room in stable condition. [id number]/[facility] #: [id number] EVELYN
[2018-11-08] MEDS: ceFAZolin 1 GM ADVAN(*) 1 GM in NS 0.9% 50 ML* 50 ML IVPB SCH ×2 (02:23→09:54)
[2018-11-08 06:16] LABS: Hematocrit 24 % (42-52); Hemoglobin 7.7 g/dL (14.0-18.0)
[2018-11-08 06:25] LABS: BUN/Creatinine Ratio 14.5 (8-20); Calcium 8.4 mg/dL (8.6-10.3); EGFR African American 125.8 (>60); EGFR Non-African American 103.9 (>60); Potassium 3.8 mmol/L (3.5-5.0)
[2018-11-08 06:27] LABS: Troponin I 0.02 ng/mL (<0.04)
[2018-11-08 06:34] LABS: Mean Platelet Volume 8.4 fL (7.4-10.4); Platelet Count 76 10^3/uL (150-450)
[2018-11-08 06:50] LABS: TSH (Thyroid Stimulating Horm) 1.46 mcIU/mL (0.34-5.60)
[2018-11-08] MEDS ORDERED: Lisinopril TAB* 10 MG PO SCH ×2 (09:00)
[2018-11-08] MEDS ORDERED: Tamsulosin CAP* 0.4 MG PO SCH (09:00)
[2018-11-08] MEDS ORDERED: Multivitamins/Minerals TAB PO SCH (09:00)
[2018-11-08] MEDS ORDERED: Pantoprazole TAB * 40 MG TAB PO SCH (09:00)
[2018-11-08] MEDS ORDERED: PARoxetine HCL TAB* 20 MG PO SCH (09:00)
[2018-11-08] MEDS ORDERED: Isosorbide Mononitrate ER TAB* 30 MG PO SCH (09:00)
[2018-11-08] MEDS ORDERED: Fluticasone NASAL SPRAY 50MCG* 16 gm SPRAY BTL BOTH NARES SCH (09:00)
[2018-11-08] MEDS ORDERED: Oxybutynin XL TAB* 5 MG PO SCH (09:00)
[2018-11-08] MEDS ORDERED: NFT: Fluticasone/Vilanterol MDI(NF) 200/25 MDI INH SCH (09:00)
[2018-11-08] MEDS: Insulin LISPRO* 1 UNITS UNIT SUBCUT SCH ×2 (09:48→11:50)
--- NOTE | 2018-11-08 11:26 | PN ---
Progress Note - Progress Note Date of Service: 11/08/18 SOAP: Subjective: resting comfortably in bed with no complaints Objective: Laboratory Last Values Hgb 7.7 g/dL (14.0-18.0) L 11/08/18 06:02 Hct 24 % (42-52) L 11/08/18 06:02 Plt Count 76 10^3/uL (150-450) L 11/08/18 06:02 MPV 8.4 fL (7.4-10.4) 11/08/18 06:02 Sodium 139 mmol/L (135-145) 11/08/18 05:52 Potassium 3.8 mmol/L (3.5-5.0) 11/08/18 05:52 Chloride 109 mmol/L (101-111) 11/08/18 05:52 Carbon Dioxide 23 mmol/L (22-32) 11/08/18 05:52 Anion Gap 7 mmol/L (2-11) 11/08/18 05:52 BUN 11 mg/dL (6-24) 11/08/18 05:52 Creatinine 0.76 mg/dL (0.67-1.17) 11/08/18 05:52 Est GFR ( Amer) 125.8 (>60) 11/08/18 05:52 Est GFR (Non-Af Amer) 103.9 (>60) 11/08/18 05:52 BUN/Creatinine Ratio 14.5 (8-20) 11/08/18 05:52 Glucose 132 mg/dL (70-100) H 11/08/18 05:52 POC Glucose (mg/dL) 181 mg/dL (70-100) H 11/07/18 23:44 Calcium 8.4 mg/dL (8.6-10.3) L 11/08/18 05:52 Troponin I 0.02 ng/mL (<0.04) 11/08/18 05:52 TSH 1.46 mcIU/mL (0.34-5.60) 11/08/18 05:52 Vital Signs Temp Pulse Resp BP Pulse Ox 98.0 F 70 18 129/65 93 11/08/18 07:57 11/08/18 07:57 11/08/18 07:57 11/08/18 07:57 11/08/18 07:57 incision: c/d/i PE: able to wiggle fingers, good cap refill Assessment: s/p left hand mutli tendon lengthening Plan: 1) Home today; OK to D/C before last abx dose 2) F/U with Dr. Vital in 7-10 days
[2018-11-08 11:47] VITALS: BP 115/61
--- NOTE | 2018-11-08 14:11 | DS ---
DISCHARGE SUMMARY: DATE OF ADMISSION: 11/07/18 DATE OF DISCHARGE: 11/08/18 SURGEON: Jer Vital MD * (DICTATED BY DENY MONTIEL) PRINCIPAL DIAGNOSIS: Right hand spasticity and contracture secondary to prior cerebrovascular accident. DISCHARGE DIAGNOSIS: Right hand spasticity and contracture secondary to prior cerebrovascular accident. HOSPITAL COURSE: Mr. Petit was admitted electively to the hospital on and underwent multiple tendon lengthenings of his right hand for right hand contracture and spasticity. He tolerated the procedure well. He was admitted overnight for pain control, on IV antibiotics. He did well. His pain was well controlled. At the time of discharge, he was afebrile and his vital signs were stable. He was discharged home in stable condition. DISCHARGE MEDICATIONS: 1. Albuterol inhaler. 2. Atorvastatin 40 mg at bedtime. 3. Plavix 75 mg every other day. 4. Guaifenesin as needed. 5. Lisinopril 40 mg in the morning. 6. Metformin 1000 mg twice a day. 7. Metoprolol 25 mg twice a day. 8. Multivitamin. 9. Oxybutynin 15 mg a day. 10. Paroxetine 20 mg a day. 11. Rifaximin 550 mg twice a day. 12. Humalog. 13. Ibuprofen as needed. 14. Tamsulosin 1 capsule a day. 15. Dexilant 60 mg daily. 16. Loperamide as needed. 17. Fluticasone nasal spray as needed. 18. Isosorbide mononitrate 30 mg daily. 19. Tramadol 50 mg every 6 hours as needed for pain. PHYSICAL EXAM UPON DISCHARGE: He was afebrile. His vital signs were stable. His incision was clean and dry. The splint was intact. He was able to wiggle the fingers and had good capillary refill. DISCHARGE DISPOSITION: He was discharged home in stable condition. DISCHARGE INSTRUCTIONS: He was discharged home. He was given tramadol to take every 6 hours as needed for pain. He was also instructed to take alternating Tylenol and ibuprofen as needed for pain. He will keep the splint clean, dry, and intact until his postoperative visit with Dr. Vital in 7 to 10 days. DENY MONTIEL [id number]/[facility] #: [id number] EVELYN
[2018-11-09] MEDS ORDERED: Clopidogrel TAB* 75 MG PO SCH (09:00)
== END 2018-11-08 12:35 | disposition home or self-care (01) ==
LOC: OR 15:00 → SSU 22:15
PROVIDERS: ADMIT Orthopaedic Surgery Hand Surgery; ATTEND Orthopaedic Surgery Hand Surgery
DX: M24.541 Contracture, right hand (principal); I69.351 Hemiplegia and hemiparesis following cerebral infarction affecting right dominant side; F32.9 Major depressive disorder, single episode, unspecified; D64.9 Anemia, unspecified; I10 Essential (primary) hypertension; K21.9 Gastro-esophageal reflux disease without esophagitis; K74.60 Unspecified cirrhosis of liver; I51.9 Heart disease, unspecified; J45.909 Unspecified asthma, uncomplicated; E78.5 Hyperlipidemia, unspecified; I25.10 Atherosclerotic heart disease of native coronary artery without angina pectoris; Z95.5 Presence of coronary angioplasty implant and graft; E03.9 Hypothyroidism, unspecified; E11.9 Type 2 diabetes mellitus without complications
CPT/HCPCS: 36415; 80048; 84443; 84484; 85014; 85018; 85049; 93005; 96365; 96367; A9270-GY; G0378; G8978-GP-CJ; G8979-GP-CI; G8987-GO-CK; G8988-GO-CI; J0690; J1100; J1885; J2250; J2405; J2704; J3010; J3490

== ENCOUNTER → 2019-03-10 07:39 | Day surgery (SDC) | payer MEDICARE, MEDICAID ==
[~2019-03-10 07:39] MED LIST changes: +Bupivacaine 0.25% SDV PF* 10 ML VIAL INJ ONE; +Famotidine IV* 10 MG/ML 2 ML (20 mg) ONE; +Ibuprofen TAB* 200 MG ONE; +Lidocaine 1% w EPI 1:100,000* MDV 20 ML VIAL ONE; +Sodium Bicarbonate 8.4%* 50 ML SYRINGE ONE
[2019-03-10 11:39] VITALS: BP 164/96
--- NOTE | 2019-03-10 17:57 | OP ---
DATE OF OPERATION: 03/10/19 - [facility] DATE OF : 57 SURGEON: Jer Vital MD HUMANITIES PROFESSOR: DENY Mcginnis ANESTHESIOLOGIST: None. ANESTHESIA: Local only with 1% buffered lidocaine with epinephrine. PRE-OP DIAGNOSIS: Left ring trigger finger. POST-OP DIAGNOSIS: Left ring trigger finger. OPERATIVE PROCEDURE: Release of left ring finger trigger finger with release of A1 perry. INDICATIONS: Mr. Petit has a trigger finger. It is quite symptomatic. He has had steroid shots about every 6 months in the recent past. We talked about his treatment options. He wanted to proceed. ESTIMATED BLOOD LOSS: 1 mL. COMPLICATIONS: None. FINDINGS: See above and below. DESCRIPTION OF PROCEDURE: Mr. Petit was seen in the preoperative holding area. The correct site, side, and procedure were identified. We came back to the operating room where the arm was prepped and draped in the usual fashion and a time-out was performed. I had already numbed up the finger and the surgical site in the preoperative holding area, so I went ahead and made a 1 cm incision over the A1 perry. Dissection was carried down. Full-thickness flaps were released off the perry. Ragnell retractors were placed. The A1 perry was incised longitudinally with a 15- blade. The release was completed proximally with the tenotomy scissors releasing the A0 perry. There was some tenosynovitis. This was all excised. I released just the leading edge of the A2 perry. At this point, everything was looking good. I had him open and close the hand multiple times. There was no triggering. I used the Ragnell retractors to release any adhesions between the FDS and the FDP tendons. The wound was irrigated out. Skin was closed with 4-0 nylon suture and he was taken to the recovery room in stable condition. [id number] #: [id number] EVELYN
== END | disposition home or self-care (01) ==
LOC: OR 07:39
PROVIDERS: ATTEND Orthopaedic Surgery Hand Surgery
DX: M65.342 Trigger finger, left ring finger (principal); F41.8 Other specified anxiety disorders; E11.9 Type 2 diabetes mellitus without complications; Z79.84 Long term (current) use of oral hypoglycemic drugs; K21.9 Gastro-esophageal reflux disease without esophagitis; Z79.4 Long term (current) use of insulin; Z79.82 Long term (current) use of aspirin; E78.00 Pure hypercholesterolemia, unspecified; M19.90 Unspecified osteoarthritis, unspecified site
CPT/HCPCS: A9270-GY; J3490